=== PATIENT | female | born 1985 | race Asian ===

== ENCOUNTER 2017-06-28 22:08 | Emergency (ER) | payer MEDICAID ==
[~2017-06-28] VITALS: Ht 170.2 cm; Wt 73.6 kg
[~2017-06-28 22:08] MED LIST: BENZ1TAB10 PO; BUSP15 PO; CEPH500 PO; DIPH25CA85 PO; LEVE250T55 PO; LEVO25TA9 PO; LURA80 PO
[2017-06-29 01:17] VITALS: BP 95/55
[2017-06-29] MEDS ORDERED: METHOCARBAMOL 750 MG TABLET PO ONE (02:45)
[2017-06-29] MEDS ORDERED: TraMADol HCL 50 MG TABLET PO ONE (02:45)
[2017-06-29] MEDS ORDERED: METHOCARBAMOL 500 MG TABLET PO ONE (03:00)
[2017-06-29] MEDS ORDERED: TRAM50TA4 PO (09:21)
[2017-06-29] MEDS ORDERED: MET500 PO (09:21)
== END 2017-06-29 03:16 | disposition home or self-care (01) ==
LOC: EMS 22:18
DX: M54.5 Low back pain (principal); G89.29 Other chronic pain; F17.210 Nicotine dependence, cigarettes, uncomplicated; F15.90 Other stimulant use, unspecified, uncomplicated
CPT/HCPCS: 99283; 99406

== ENCOUNTER 2017-06-29 08:59 | Emergency (ER) | payer MEDICAID ==
[~2017-06-29] VITALS: Ht 170.2 cm; Wt 73.5 kg
[~2017-06-29 08:59] MED LIST changes: -CEPH500 PO; -DIPH25CA85 PO
[2017-06-29] MEDS ORDERED: MET500 PO (09:21)
[2017-06-29] MEDS ORDERED: TRAM50TA4 PO (09:21)
[2017-06-29 09:58] LABS: APPEARANCE,URINE CLEAR (CLEAR); GLUCOSE, URINE (UA) NEGATIVE (NEGATIVE); KETONES,URINE NEGATIVE (NEGATIVE); LEUKOCYTE ESTERASE ,URINE NEGATIVE (NEGATIVE); OCCULT BLOOD,URINE MODERATE (NEGATIVE); PROTEIN,URINE NEGATIVE (NEGATIVE)
[2017-06-29] MEDS ORDERED: KETOROLAC TROMETHAMINE 30 MG/ML VIAL IVP ONE (10:00)
[2017-06-29 10:13] LABS: ADD UA MICROSCOPIC YES
[2017-06-29 10:14] LABS: SQUAMOUS EPITHELIAL CELL,UR Few /LPF (None Seen); WBC,URINE None Seen /HPF (0-5)
[2017-06-29 10:28] LABS: ANION GAP 10 mmol/L (8-16); BASOPHILS % (AUTO) 0.6 % (0.0-2.0); CALCIUM, TOTAL 8.1 mg/dL (8.8-10.5); CARBON DIOXIDE 26 mmol/L (22-29); CHLORIDE 104 mmol/L (98-107); CREATININE 0.64 mg/dL (0.60-1.30); EOSINOPHILS % (AUTO) 3.1 % (1.0-6.0); GLOMERULAR FILTR. RATE CALC > 60 mL/min (>60); HEMATOCRIT 37.6 % (36-46); LYMPHOCYTES # (AUTO) 2.2 K/uL (1.0-4.8); LYMPHOCYTES % (AUTO) 38.2 % (22.0-44.0); MEAN CORPUSCULAR HEMOGLOBIN 32.5 pg (26.0-34.0); MEAN CORPUSCULAR HGB CONC 34.5 G/dL (31.0-37.0); MEAN CORPUSCULAR VOLUME 94 fL (80-100); MONOCYTES # (AUTO) 0.6 K/uL (0.1-1.0); MONOCYTES % (AUTO) 10.7 % (2.0-9.0); NEUTROPHILS # (AUTO) 2.8 K/uL (1.8-7.7); NEUTROPHILS % (AUTO) 47.4 % (40.0-70.0); PLATELET COUNT (AUTO) 196 K/uL (150-450); RED CELL DISTRIBUTION WIDTH 12.6 % (11.5-14.5); SODIUM SERUM 140 mmol/L (136-145); UREA NITROGEN, BLOOD 13 mg/dL (7-18); WHITE BLOOD COUNT (AUTO) 5.9 K/uL (4.5-11.0)
[2017-06-29 10:33] LABS: ALANINE AMINOTRANSFERASE 32 U/L (12-78); ALBUMIN 3.8 g/dL (3.4-5.0); ASPARTATE AMINOTRANSFERASE 25 U/L (15-37); BILIRUBIN,TOTAL 0.3 mg/dL (0.1-1.0); TOTAL PROTEIN, SERUM 6.6 g/dL (6.4-8.2)
[2017-06-29 10:52] VITALS: BP 109/67
== END 2017-06-29 11:31 | disposition home or self-care (01) ==
LOC: EMS 09:08
DX: R10.9 Unspecified abdominal pain (principal); F20.9 Schizophrenia, unspecified; R11.2 Nausea with vomiting, unspecified; F17.210 Nicotine dependence, cigarettes, uncomplicated; F15.10 Other stimulant abuse, uncomplicated
CPT/HCPCS: 36415; 74176; 80053; 81001; 83690; 84703; 85025; 96374; 99285; J1885

== ENCOUNTER 2017-07-01 22:20 | Emergency (ER) | payer MEDICAID ==
[~2017-07-01] VITALS: Ht 170.2 cm; Wt 73.6 kg
[~2017-07-01 22:20] MED LIST changes: +MET500 PO; +TRAM50TA4 PO
[2017-07-01] MEDS ORDERED: GABA-531 PO (22:33)
[2017-07-01] MEDS ORDERED: IBUP-1547 PO (22:33)
[2017-07-01] MEDS ORDERED: SERT50TA12 PO (22:33)
[2017-07-01] MEDS ORDERED: PHENY100 PO (22:33)
[2017-07-01] MEDS ORDERED: NAPR-58 PO (22:33)
[2017-07-01] MEDS ORDERED: TRAZ-144 PO (22:33)
[2017-07-01 23:00] VITALS: BP 121/71
[2017-07-01] MEDS ORDERED: KETOROLAC TROMETHAMINE 60 MG/2 ML VIAL IM ONE (23:30)
== END 2017-07-02 01:51 | disposition home or self-care (01) ==
LOC: EMS 22:22
DX: M25.551 Pain in right hip (principal); F15.90 Other stimulant use, unspecified, uncomplicated; F17.210 Nicotine dependence, cigarettes, uncomplicated; Z88.8 Allergy status to other drugs, medicaments and biological substances
CPT/HCPCS: 73502; 96372; 99284; J1885

== ENCOUNTER 2018-04-08 16:43 | Emergency (ER) | payer MEDICAID, OTHER ==
[~2018-04-08] VITALS: Ht 170.2 cm; Wt 75.0 kg
[~2018-04-08 16:43] MED LIST changes: -BENZ1TAB10 PO; -BUSP15 PO; +GABA-531 PO; +IBUP-2071 PO; -LEVE250T55 PO; -LEVO25TA9 PO; -LURA80 PO; -MET500 PO; +NAPR-58 PO; +PHENY100 PO; +SERT50TA12 PO; -TRAM50TA4 PO; +TRAZ-144 PO
[2018-04-08] MEDS ORDERED: DIVA500T35 PO (17:36)
[2018-04-08] MEDS ORDERED: DIVA125T PO (17:36)
[2018-04-08] MEDS ORDERED: LEVE500T53 PO (17:36)
[2018-04-08 19:02] VITALS: BP 120/70
== END 2018-04-08 19:49 | disposition home or self-care (01) ==
LOC: EMS 16:44
DX: S62.610A Displaced fracture of proximal phalanx of right index finger, initial encounter for closed fracture (principal); F20.9 Schizophrenia, unspecified; F43.10 Post-traumatic stress disorder, unspecified; N83.209 Unspecified ovarian cyst, unspecified side; F17.210 Nicotine dependence, cigarettes, uncomplicated; F15.10 Other stimulant abuse, uncomplicated; F11.10 Opioid abuse, uncomplicated; Z79.899 Other long term (current) drug therapy; W23.0XXA Caught, crushed, jammed, or pinched between moving objects, initial encounter; Y93.89 Activity, other specified; Y92.89 Other specified places as the place of occurrence of the external cause; Y99.8 Other external cause status
CPT/HCPCS: 99284

== ENCOUNTER 2018-05-31 05:33 | Inpatient (IN) | payer MEDICAID, OTHER ==
[~2018-05-31] VITALS: Ht 170.2 cm; Wt 68.5 kg
[~2018-05-31 05:33] MED LIST changes: +DIVA-78 PO; +DIVA125T32 PO; -IBUP-2071 PO; +LEVE500T53 PO; -PHENY100 PO; -SERT50TA12 PO; -TRAZ-144 PO; +TRAZ-219 PO
[2018-05-31 10:17] LABS: BASOPHILS % (AUTO) 0.3 % (0.0-2.0); EOSINOPHILS % (AUTO) 0.4 % (1.0-6.0); HEMATOCRIT 39.7 % (36-46); LYMPHOCYTES # (AUTO) 1.8 K/uL (1.0-4.8); LYMPHOCYTES % (AUTO) 20.5 % (22.0-44.0); MEAN CORPUSCULAR HEMOGLOBIN 32.3 pg (26.0-34.0); MEAN CORPUSCULAR HGB CONC 35.3 G/dL (31.0-37.0); MEAN CORPUSCULAR VOLUME 92 fL (80-100); MONOCYTES # (AUTO) 0.8 K/uL (0.1-1.0); NEUTROPHILS # (AUTO) 6.2 K/uL (1.8-7.7); NEUTROPHILS % (AUTO) 69.8 % (40.0-70.0); PLATELET COUNT (AUTO) 213 K/uL (150-450); RED BLOOD CELL COUNT(AUTO) 4.33 MIL/uL (4.00-5.20); RED CELL DISTRIBUTION WIDTH 12.8 % (11.5-14.5)
[2018-05-31 10:32] LABS: ANION GAP 12 mmol/L (8-16); CALCIUM, TOTAL 9.3 mg/dL (8.8-10.5); CARBON DIOXIDE 24 mmol/L (22-29); CHLORIDE 104 mmol/L (98-107); CREATININE 0.75 mg/dL (0.60-1.30); GLOMERULAR FILTR. RATE CALC > 60 mL/min (>60); GLUCOSE,RANDOM 102 mg/dL (70-110); POTASSIUM 4.4 mmol/L (3.5-5.1); SODIUM SERUM 140 mmol/L (136-145); UREA NITROGEN, BLOOD 16 mg/dL (7-18)
[2018-05-31 10:33] LABS: ALANINE AMINOTRANSFERASE 37 U/L (12-78); ALBUMIN 4.5 g/dL (3.4-5.0); ALKALINE PHOSPHATASE 59 U/L (46-116); ASPARTATE AMINOTRANSFERASE 30 U/L (15-37); BILIRUBIN,TOTAL 0.6 mg/dL (0.1-1.0); VALPROIC ACID 11 mcg/mL (50-100)
[2018-05-31 10:44] LABS: AMPHET/METH SCREEN,URINE NEGATIVE (NEGATIVE); BARBITURATE SCREEN, URINE NEGATIVE (NEGATIVE); BENZODIAZEPINES SCREEN,URINE NEGATIVE (NEGATIVE); CANNABINOID SCREEN,URINE NEGATIVE (NEGATIVE); COCAINE SCREEN,URINE NEGATIVE (NEGATIVE); METHADONE SCREEN, URINE NEGATIVE (NEGATIVE); OPIATE SCREEN,URINE NEGATIVE (NEGATIVE); PHENCYCLIDINE SCREEN,URINE NEGATIVE (NEGATIVE)
[2018-05-31] MEDS ORDERED: IBUPROFEN 400 MG TABLET PO PRN (12:45)
[2018-05-31] MEDS ORDERED: LORazepam 2 MG TABLET PO PRN (12:45)
[2018-05-31] MEDS ORDERED: HALOPERIDOL 5 MG TABLET PO PRN (12:45)
[2018-05-31] MEDS ORDERED: ACETAMINOPHEN 325 MG TABLET PO PRN (12:45)
[2018-05-31 13:14] LABS: APPEARANCE,URINE CLOUDY (CLEAR); GLUCOSE, URINE (UA) NEGATIVE (NEGATIVE); KETONES,URINE 15 mg/dL (NEGATIVE); LEUKOCYTE ESTERASE ,URINE TRACE (NEGATIVE); NITRATE,URINE NEGATIVE (NEGATIVE); OCCULT BLOOD,URINE LARGE (NEGATIVE); PROTEIN,URINE NEGATIVE (NEGATIVE)
[2018-05-31 13:15] LABS: BILIRUBIN,URINE PRELIM. POSITIVE (NEGATIVE)
[2018-05-31 13:35] LABS: BACTERIA,URINE Few /HPF (None Seen); SQUAMOUS EPITHELIAL CELL,UR Moderate /LPF (None Seen)
[2018-05-31] MEDS ORDERED: LOPERAMIDE HCL 2 MG CAPSULE PO PRN (21:00)
[2018-05-31] MEDS ORDERED: PETROLATUM,WHITE 71 GM JELLY TP PRN (21:00)
[2018-05-31] MEDS ORDERED: ALBUTEROL SULFATE HFA 90 MCG/PUFF 8 GM INHALER IH PRN (21:00)
[2018-05-31] MEDS ORDERED: MAGNESIUM HYDROXIDE SUSPENSION 30 ML UDCUP PO PRN (21:00)
[2018-05-31] MEDS ORDERED: MAG HYDROX/AL HYDROX/SIMETH ES 30 ML SUSPENSION UDCUP PO PRN (21:00)
[2018-05-31] MEDS ORDERED: DOCUSATE SODIUM 100 MG CAPSULE PO PRN (21:00)
[2018-05-31] MEDS ORDERED: ONDANSETRON HCL 4 MG TABLET PO PRN (21:00)
[2018-05-31 21:01] VITALS: BP 101/67
[2018-05-31] MEDS: LevETIRAcetam 250 MG TABLET PO SCH (21:24)
[2018-06-01 06:52] LABS: BASOPHILS % (AUTO) 0.7 % (0.0-2.0); EOSINOPHILS % (AUTO) 2.3 % (1.0-6.0); HEMATOCRIT 36.7 % (36-46); HEMOGLOBIN 13.1 g/dL (12.0-16.0); LYMPHOCYTES % (AUTO) 33.6 % (22.0-44.0); MEAN CORPUSCULAR HEMOGLOBIN 32.5 pg (26.0-34.0); MEAN CORPUSCULAR HGB CONC 35.8 G/dL (31.0-37.0); MEAN CORPUSCULAR VOLUME 91 fL (80-100); MONOCYTES # (AUTO) 0.7 K/uL (0.1-1.0); MONOCYTES % (AUTO) 11.8 % (2.0-9.0); NEUTROPHILS # (AUTO) 3.1 K/uL (1.8-7.7); NEUTROPHILS % (AUTO) 51.6 % (40.0-70.0); PLATELET COUNT (AUTO) 183 K/uL (150-450); RED BLOOD CELL COUNT(AUTO) 4.05 MIL/uL (4.00-5.20); RED CELL DISTRIBUTION WIDTH 12.7 % (11.5-14.5)
[2018-06-01 07:22] LABS: HEMOGLOBIN A1C 4.8 % (4.5-6.2)
[2018-06-01 07:25] LABS: ALANINE AMINOTRANSFERASE 40 U/L (12-78); ALBUMIN 3.7 g/dL (3.4-5.0); ALKALINE PHOSPHATASE 51 U/L (46-116); ANION GAP 7 mmol/L (8-16); ASPARTATE AMINOTRANSFERASE 26 U/L (15-37); BILIRUBIN,TOTAL 0.5 mg/dL (0.1-1.0); CALCIUM, TOTAL 8.9 mg/dL (8.8-10.5); CARBON DIOXIDE 27 mmol/L (22-29); CHLORIDE 107 mmol/L (98-107); CHOL/HDL RATIO 4.1 (3.9-5.7); CHOLESTEROL 157 mg/dL (131-200); CREATININE 0.68 mg/dL (0.60-1.30); GLOMERULAR FILTR. RATE CALC > 60 mL/min (>60); GLUCOSE,RANDOM 96 mg/dL (70-110); HDL CHOLESTEROL 38 mg/dL (40-60); LDL CHOL (CALC.) 106 mg/dL (0-130); SODIUM SERUM 141 mmol/L (136-145); THYROID STIMULATING HORMONE 1.12 uIU/mL (0.36-3.74); TOTAL PROTEIN, SERUM 6.6 g/dL (6.4-8.2); TRIGLYCERIDES 63 mg/dL (15-150); UREA NITROGEN, BLOOD 13 mg/dL (7-18)
[2018-06-01] MEDS: LevETIRAcetam 250 MG TABLET PO SCH ×2 (09:58→18:12)
[2018-06-01] MEDS: NAPROXEN 500 MG TABLET PO SCH ×2 (09:59→18:12)
[2018-06-01 11:12] VITALS: BP 110/77
[2018-06-01 18:50] VITALS: BP 113/71
[2018-06-01] MEDS: BENZTROPINE MESYLATE 1 MG TABLET PO SCH (21:41)
[2018-06-02 08:00] VITALS: BP 103/69
[2018-06-02] MEDS: RisperiDONE 2 MG TABLET PO SCH ×2 (09:54→17:08)
[2018-06-02] MEDS: CIPROFLOXACIN HCL 250 MG TABLET PO SCH (09:54)
[2018-06-02] MEDS: NAPROXEN 500 MG TABLET PO SCH ×2 (09:54→17:08)
[2018-06-02] MEDS: LevETIRAcetam 250 MG TABLET PO SCH ×2 (09:55→17:08)
[2018-06-02] MEDS: BENZTROPINE MESYLATE 1 MG TABLET PO SCH (20:57)
[2018-06-02 21:24] VITALS: BP 112/70
[2018-06-03 08:00] VITALS: BP 113/68
[2018-06-03] MEDS: RisperiDONE 2 MG TABLET PO SCH ×2 (10:43→16:19)
[2018-06-03] MEDS: NAPROXEN 500 MG TABLET PO SCH ×2 (10:43→16:19)
[2018-06-03] MEDS: LevETIRAcetam 250 MG TABLET PO SCH ×2 (10:44→16:18)
[2018-06-03] MEDS: CIPROFLOXACIN HCL 250 MG TABLET PO SCH (10:44)
[2018-06-03] MEDS: BENZTROPINE MESYLATE 1 MG TABLET PO SCH (20:30)
[2018-06-03 21:01] VITALS: BP 115/65
[2018-06-03] MEDS: ZOLPIDEM TARTRATE 10 MG TABLET PO PRN (21:35)
[2018-06-04 08:00] VITALS: BP 108/64
[2018-06-04] MEDS: CIPROFLOXACIN HCL 250 MG TABLET PO SCH (10:01)
[2018-06-04] MEDS: LevETIRAcetam 250 MG TABLET PO SCH ×2 (10:01→16:57)
[2018-06-04] MEDS: NAPROXEN 500 MG TABLET PO SCH ×2 (10:01→16:57)
[2018-06-04] MEDS: RisperiDONE 2 MG TABLET PO SCH (10:01)
[2018-06-04] MEDS: BENZTROPINE MESYLATE 1 MG TABLET PO SCH (20:03)
[2018-06-04] MEDS: OLANZapine 7.5 MG TABLET PO SCH (20:03)
[2018-06-04 21:42] VITALS: BP 106/69
[2018-06-04] MEDS: ZOLPIDEM TARTRATE 10 MG TABLET PO PRN (22:48)
[2018-06-05] MEDS: LevETIRAcetam 250 MG TABLET PO SCH ×2 (09:29→16:59)
[2018-06-05] MEDS: NAPROXEN 500 MG TABLET PO SCH ×2 (09:29→16:59)
[2018-06-05] MEDS: CIPROFLOXACIN HCL 250 MG TABLET PO SCH (09:29)
[2018-06-05 10:22] VITALS: BP 93/56
[2018-06-05 17:00] VITALS: BP 102/48
[2018-06-05] MEDS: BENZTROPINE MESYLATE 1 MG TABLET PO SCH (21:00)
[2018-06-05] MEDS: OLANZapine 7.5 MG TABLET PO SCH (21:00)
[2018-06-06 09:07] VITALS: BP 113/71
[2018-06-06] MEDS: CIPROFLOXACIN HCL 250 MG TABLET PO SCH (10:31)
[2018-06-06] MEDS: LevETIRAcetam 250 MG TABLET PO SCH ×2 (10:32→17:06)
[2018-06-06] MEDS: NAPROXEN 500 MG TABLET PO SCH ×2 (10:32→17:06)
[2018-06-06 17:20] VITALS: BP 99/64
[2018-06-06] MEDS: ZOLPIDEM TARTRATE 10 MG TABLET PO PRN (20:22)
[2018-06-06] MEDS: BENZTROPINE MESYLATE 1 MG TABLET PO SCH (20:22)
[2018-06-06] MEDS: OLANZapine 7.5 MG TABLET PO SCH (20:23)
[2018-06-07 08:26] VITALS: BP 106/69
[2018-06-07] MEDS: CIPROFLOXACIN HCL 250 MG TABLET PO SCH (08:59)
[2018-06-07] MEDS: LevETIRAcetam 250 MG TABLET PO SCH (08:59)
[2018-06-07] MEDS: NAPROXEN 500 MG TABLET PO SCH (08:59)
[2018-06-07] MEDS ORDERED: BENZ1TAB10 PO (11:38)
[2018-06-07] MEDS ORDERED: OLAN7.5T2 PO (11:39)
[2018-06-07] MEDS ORDERED: CIP250 PO (11:43)
[2018-06-08] MEDS ORDERED: NAPR-58 PO (20:42)
== END 2018-06-07 14:50 | disposition home or self-care (01) | DRG 750 ==
LOC: EMS 05:34 → 3EI 18:58
PROVIDERS: ADMIT Psychiatry & Neurology Psychiatry; ATTEND Psychiatry & Neurology Psychiatry
DX: F20.0 Paranoid schizophrenia (principal); M41.9 Scoliosis, unspecified; N39.0 Urinary tract infection, site not specified; G40.909 Epilepsy, unspecified, not intractable, without status epilepticus; F43.10 Post-traumatic stress disorder, unspecified; E03.9 Hypothyroidism, unspecified; F11.90 Opioid use, unspecified, uncomplicated; F17.210 Nicotine dependence, cigarettes, uncomplicated; F41.9 Anxiety disorder, unspecified; G47.00 Insomnia, unspecified; N83.209 Unspecified ovarian cyst, unspecified side; Z88.8 Allergy status to other drugs, medicaments and biological substances; Z79.899 Other long term (current) drug therapy; Z71.6 Tobacco abuse counseling
CPT/HCPCS: 83036; 84443; 99285; G0480

== ENCOUNTER 2018-06-08 20:33 | Inpatient (IN) | payer MEDICAID, OTHER ==
[~2018-06-08] VITALS: Ht 170.2 cm; Wt 67.8 kg
[~2018-06-08 20:33] MED LIST changes: +BENZ1TAB10 PO; +CIP250 PO; -DIVA-78 PO; -DIVA125T32 PO; -GABA-531 PO; +OLAN7.5T2 PO; -TRAZ-219 PO
[2018-06-08] MEDS ORDERED: NAPR-58 PO (20:42)
[2018-06-08 21:48] LABS: BASOPHILS % (AUTO) 0.5 % (0.0-2.0); EOSINOPHILS % (AUTO) 1.4 % (1.0-6.0); HEMATOCRIT 38.8 % (36-46); HEMOGLOBIN 13.5 g/dL (12.0-16.0); LYMPHOCYTES # (AUTO) 2.7 K/uL (1.0-4.8); MEAN CORPUSCULAR HGB CONC 34.8 G/dL (31.0-37.0); MEAN CORPUSCULAR VOLUME 92 fL (80-100); MONOCYTES # (AUTO) 0.8 K/uL (0.1-1.0); MONOCYTES % (AUTO) 9.6 % (2.0-9.0); NEUTROPHILS # (AUTO) 4.7 K/uL (1.8-7.7); NEUTROPHILS % (AUTO) 56.5 % (40.0-70.0); PLATELET COUNT (AUTO) 235 K/uL (150-450); RED BLOOD CELL COUNT(AUTO) 4.22 MIL/uL (4.00-5.20)
[2018-06-08 21:58] LABS: ANION GAP 11 mmol/L (8-16); CALCIUM, TOTAL 9.1 mg/dL (8.8-10.5); CARBON DIOXIDE 25 mmol/L (22-29); CHLORIDE 104 mmol/L (98-107); CREATININE 0.87 mg/dL (0.60-1.30); GLOMERULAR FILTR. RATE CALC > 60 mL/min (>60); GLUCOSE,RANDOM 112 mg/dL (70-110); POTASSIUM 3.6 mmol/L (3.5-5.1); SODIUM SERUM 140 mmol/L (136-145); UREA NITROGEN, BLOOD 11 mg/dL (7-18)
[2018-06-08 22:04] LABS: ALANINE AMINOTRANSFERASE 24 U/L (12-78); ALKALINE PHOSPHATASE 59 U/L (46-116); ASPARTATE AMINOTRANSFERASE 16 U/L (15-37); BILIRUBIN,TOTAL 0.4 mg/dL (0.1-1.0); TOTAL PROTEIN, SERUM 7.3 g/dL (6.4-8.2)
[2018-06-09] MEDS ORDERED: HALOPERIDOL 5 MG TABLET PO ONE
[2018-06-09] MEDS ORDERED: DiphenhydrAMINE HCL 25 MG CAPSULE PO ONE
[2018-06-09] MEDS ORDERED: LORazepam 2 MG TABLET PO ONE
[2018-06-09] MEDS ORDERED: HALOPERIDOL 5 MG TABLET PO PRN (00:30)
[2018-06-09 00:34] LABS: AMPHET/METH SCREEN,URINE POSITIVE (NEGATIVE); BARBITURATE SCREEN, URINE NEGATIVE (NEGATIVE); BENZODIAZEPINES SCREEN,URINE NEGATIVE (NEGATIVE); CANNABINOID SCREEN,URINE NEGATIVE (NEGATIVE); COCAINE SCREEN,URINE NEGATIVE (NEGATIVE); METHADONE SCREEN, URINE NEGATIVE (NEGATIVE); OPIATE SCREEN,URINE NEGATIVE (NEGATIVE); PHENCYCLIDINE SCREEN,URINE NEGATIVE (NEGATIVE)
[2018-06-09 03:32] VITALS: BP 120/66
[2018-06-09] MEDS ORDERED: IBUPROFEN 400 MG TABLET PO PRN (06:45)
[2018-06-09] MEDS ORDERED: ONDANSETRON HCL 4 MG TABLET PO PRN (06:45)
[2018-06-09] MEDS ORDERED: LOPERAMIDE HCL 2 MG CAPSULE PO PRN (06:45)
[2018-06-09] MEDS ORDERED: DOCUSATE SODIUM 100 MG CAPSULE PO PRN (06:45)
[2018-06-09] MEDS ORDERED: MAG HYDROX/AL HYDROX/SIMETH ES 30 ML SUSPENSION UDCUP PO PRN (06:45)
[2018-06-09] MEDS ORDERED: PETROLATUM,WHITE 71 GM JELLY TP PRN (06:45)
[2018-06-09] MEDS ORDERED: CloNIDine HCL 0.1 MG TABLET PO PRN (06:45)
[2018-06-09] MEDS ORDERED: ACETAMINOPHEN 325 MG TABLET PO PRN (06:45)
[2018-06-09] MEDS ORDERED: MAGNESIUM HYDROXIDE SUSPENSION 30 ML UDCUP PO PRN (06:45)
[2018-06-09] MEDS: LevETIRAcetam 250 MG TABLET PO SCH ×2 (08:50→16:53)
[2018-06-09] MEDS: NICOTINE 14 MG/24 HOUR PATCH TD SCH (08:50)
[2018-06-09 10:09] VITALS: BP 122/75
[2018-06-09 17:26] VITALS: BP 94/50
[2018-06-09] MEDS: ZOLPIDEM TARTRATE 10 MG TABLET PO PRN (22:09)
[2018-06-10 06:32] LABS: BASOPHILS % (AUTO) 0.5 % (0.0-2.0); EOSINOPHILS % (AUTO) 3.6 % (1.0-6.0); HEMATOCRIT 36.2 % (36-46); HEMOGLOBIN 12.6 g/dL (12.0-16.0); LYMPHOCYTES # (AUTO) 2.7 K/uL (1.0-4.8); LYMPHOCYTES % (AUTO) 34.7 % (22.0-44.0); MEAN CORPUSCULAR HEMOGLOBIN 31.8 pg (26.0-34.0); MEAN CORPUSCULAR HGB CONC 34.8 G/dL (31.0-37.0); MEAN CORPUSCULAR VOLUME 92 fL (80-100); MONOCYTES # (AUTO) 0.7 K/uL (0.1-1.0); MONOCYTES % (AUTO) 8.6 % (2.0-9.0); NEUTROPHILS # (AUTO) 4.1 K/uL (1.8-7.7); NEUTROPHILS % (AUTO) 52.6 % (40.0-70.0); PLATELET COUNT (AUTO) 212 K/uL (150-450); RED BLOOD CELL COUNT(AUTO) 3.95 MIL/uL (4.00-5.20); RED CELL DISTRIBUTION WIDTH 12.6 % (11.5-14.5)
[2018-06-10 07:02] LABS: CHOL/HDL RATIO 3.8 (3.9-5.7); THYROID STIMULATING HORMONE 1.06 uIU/mL (0.36-3.74)
[2018-06-10] MEDS: NICOTINE 14 MG/24 HOUR PATCH TD SCH (09:00)
[2018-06-10] MEDS: LevETIRAcetam 250 MG TABLET PO SCH ×2 (10:34→17:12)
[2018-06-10] MEDS: RisperiDONE 3 MG TABLET PO SCH (17:00)
[2018-06-10 17:04] VITALS: BP 94/42
[2018-06-10] MEDS: ZOLPIDEM TARTRATE 10 MG TABLET PO PRN (20:02)
[2018-06-10] MEDS: BENZTROPINE MESYLATE 1 MG TABLET PO SCH (20:02)
[2018-06-11 08:49] VITALS: BP 102/78
[2018-06-11] MEDS: NICOTINE 14 MG/24 HOUR PATCH TD SCH (09:00)
[2018-06-11] MEDS: RisperiDONE 3 MG TABLET PO SCH (09:00)
[2018-06-11] MEDS: LevETIRAcetam 250 MG TABLET PO SCH ×2 (10:30→16:56)
[2018-06-11 17:15] VITALS: BP 103/55
[2018-06-11] MEDS: BENZTROPINE MESYLATE 1 MG TABLET PO SCH (20:06)
[2018-06-11] MEDS: QUEtiapine FUMARATE 200 MG TABLET PO SCH (20:07)
[2018-06-12 00:02] VITALS: BP 95/55
[2018-06-12] MEDS: ZOLPIDEM TARTRATE 10 MG TABLET PO PRN (00:06)
[2018-06-12] MEDS: LORazepam 2 MG TABLET PO PRN (00:06)
[2018-06-12] MEDS: NICOTINE 14 MG/24 HOUR PATCH TD SCH (09:00)
[2018-06-12 09:24] VITALS: BP 104/67
[2018-06-12] MEDS: LevETIRAcetam 250 MG TABLET PO SCH ×2 (09:38→17:19)
[2018-06-12] MEDS: QUEtiapine FUMARATE 100 MG TABLET PO SCH (09:38)
[2018-06-12] MEDS: BENZTROPINE MESYLATE 1 MG TABLET PO SCH (20:16)
[2018-06-12] MEDS: QUEtiapine FUMARATE 200 MG TABLET PO SCH (20:16)
[2018-06-12 21:19] VITALS: BP 101/53
[2018-06-13 00:02] VITALS: BP 86/51
[2018-06-13] MEDS: ZOLPIDEM TARTRATE 10 MG TABLET PO PRN (01:33)
[2018-06-13] MEDS: LORazepam 2 MG TABLET PO PRN ×2 (01:33→20:23)
[2018-06-13] MEDS: NICOTINE 14 MG/24 HOUR PATCH TD SCH (09:00)
[2018-06-13] MEDS: QUEtiapine FUMARATE 100 MG TABLET PO SCH (10:17)
[2018-06-13] MEDS: LevETIRAcetam 250 MG TABLET PO SCH ×2 (10:17→17:40)
[2018-06-13 10:54] VITALS: BP 101/64
[2018-06-13 16:52] VITALS: BP 122/78
[2018-06-13] MEDS: BENZTROPINE MESYLATE 1 MG TABLET PO SCH (20:23)
[2018-06-13] MEDS: QUEtiapine FUMARATE 200 MG TABLET PO SCH (20:23)
[2018-06-14] MEDS: NICOTINE 14 MG/24 HOUR PATCH TD SCH (09:00)
[2018-06-14] MEDS: LevETIRAcetam 250 MG TABLET PO SCH ×2 (09:35→16:44)
[2018-06-14] MEDS: QUEtiapine FUMARATE 100 MG TABLET PO SCH (09:35)
[2018-06-14 10:38] VITALS: BP 90/60
[2018-06-14 16:56] VITALS: BP 120/60
[2018-06-14] MEDS: BENZTROPINE MESYLATE 1 MG TABLET PO SCH (20:05)
[2018-06-14] MEDS: QUEtiapine FUMARATE 200 MG TABLET PO SCH (20:05)
[2018-06-14] MEDS: LORazepam 2 MG TABLET PO PRN (20:51)
[2018-06-14] MEDS: ZOLPIDEM TARTRATE 10 MG TABLET PO PRN (22:32)
[2018-06-15 08:36] VITALS: BP 97/53
[2018-06-15] MEDS: NICOTINE 14 MG/24 HOUR PATCH TD SCH (09:00)
[2018-06-15] MEDS: QUEtiapine FUMARATE 100 MG TABLET PO SCH (09:25)
[2018-06-15] MEDS: LevETIRAcetam 250 MG TABLET PO SCH ×2 (09:25→16:55)
[2018-06-15] MEDS ORDERED: QUET200T PO (16:52)
[2018-06-15] MEDS ORDERED: QUET100T PO (16:52)
== END 2018-06-15 18:00 | disposition home or self-care (01) | DRG 750 ==
LOC: EMS 20:34 → 3EI 06-09 00:30
PROVIDERS: ADMIT Psychiatry & Neurology Psychiatry; ATTEND Psychiatry & Neurology Psychiatry
DX: F25.9 Schizoaffective disorder, unspecified (principal); M41.9 Scoliosis, unspecified; G40.909 Epilepsy, unspecified, not intractable, without status epilepticus; E03.9 Hypothyroidism, unspecified; F17.210 Nicotine dependence, cigarettes, uncomplicated; F43.10 Post-traumatic stress disorder, unspecified; Z59.0 Homelessness
CPT/HCPCS: 84443; 87081; 99285; G0480

== ENCOUNTER 2018-06-16 13:44 | Inpatient (IN) | payer MEDICAID, OTHER ==
[~2018-06-16] VITALS: Ht 170.2 cm; Wt 68.7 kg
[~2018-06-16 13:44] MED LIST changes: -CIP250 PO; -NAPR-58 PO; -OLAN7.5T2 PO; +QUET100T PO; +QUET200T PO
[2018-06-16 14:38] LABS: AMPHET/METH SCREEN,URINE NEGATIVE (NEGATIVE); BARBITURATE SCREEN, URINE NEGATIVE (NEGATIVE); BENZODIAZEPINES SCREEN,URINE NEGATIVE (NEGATIVE); CANNABINOID SCREEN,URINE NEGATIVE (NEGATIVE); COCAINE SCREEN,URINE NEGATIVE (NEGATIVE); METHADONE SCREEN, URINE NEGATIVE (NEGATIVE); OPIATE SCREEN,URINE NEGATIVE (NEGATIVE); PHENCYCLIDINE SCREEN,URINE NEGATIVE (NEGATIVE)
[2018-06-16 15:01] LABS: BASOPHILS % (AUTO) 0.4 % (0.0-2.0); EOSINOPHILS % (AUTO) 2.4 % (1.0-6.0); HEMATOCRIT 38.2 % (36-46); HEMOGLOBIN 13.7 g/dL (12.0-16.0); LYMPHOCYTES # (AUTO) 1.8 K/uL (1.0-4.8); LYMPHOCYTES % (AUTO) 21.9 % (22.0-44.0); MEAN CORPUSCULAR HEMOGLOBIN 32.2 pg (26.0-34.0); MEAN CORPUSCULAR HGB CONC 35.8 G/dL (31.0-37.0); MEAN CORPUSCULAR VOLUME 90 fL (80-100); MONOCYTES # (AUTO) 0.7 K/uL (0.1-1.0); MONOCYTES % (AUTO) 8.4 % (2.0-9.0); NEUTROPHILS # (AUTO) 5.5 K/uL (1.8-7.7); NEUTROPHILS % (AUTO) 66.9 % (40.0-70.0); PLATELET COUNT (AUTO) 241 K/uL (150-450); RED BLOOD CELL COUNT(AUTO) 4.24 MIL/uL (4.00-5.20); RED CELL DISTRIBUTION WIDTH 12.5 % (11.5-14.5)
[2018-06-16 15:08] LABS: ANION GAP 9 mmol/L (8-16); CARBON DIOXIDE 29 mmol/L (22-29); CHLORIDE 102 mmol/L (98-107); GLOMERULAR FILTR. RATE CALC > 60 mL/min (>60); GLUCOSE,RANDOM 89 mg/dL (70-110); POTASSIUM 4.1 mmol/L (3.5-5.1); SODIUM SERUM 140 mmol/L (136-145); UREA NITROGEN, BLOOD 13 mg/dL (7-18)
[2018-06-16 15:14] LABS: ALANINE AMINOTRANSFERASE 31 U/L (12-78); ALBUMIN 3.9 g/dL (3.4-5.0); ALKALINE PHOSPHATASE 69 U/L (46-116); ASPARTATE AMINOTRANSFERASE 16 U/L (15-37); BILIRUBIN,TOTAL 0.3 mg/dL (0.1-1.0); TOTAL PROTEIN, SERUM 7.3 g/dL (6.4-8.2)
[2018-06-16] MEDS ORDERED: LORazepam 2 MG TABLET PO ONE (17:15)
[2018-06-16] MEDS ORDERED: HALOPERIDOL 5 MG TABLET PO ONE (17:15)
[2018-06-16] MEDS ORDERED: HALOPERIDOL 5 MG TABLET PO PRN (17:30)
[2018-06-16] MEDS ORDERED: BACITRACIN 28.4 GM OINTMENT TP PRN (19:45)
[2018-06-16] MEDS ORDERED: ALBUTEROL SULFATE HFA 90 MCG/PUFF 8 GM INHALER IH PRN (19:45)
[2018-06-16] MEDS ORDERED: PETROLATUM,WHITE 71 GM JELLY TP PRN (19:45)
[2018-06-16] MEDS ORDERED: MAG HYDROX/AL HYDROX/SIMETH ES 30 ML SUSPENSION UDCUP PO PRN (19:45)
[2018-06-16] MEDS ORDERED: LOPERAMIDE HCL 2 MG CAPSULE PO PRN (19:45)
[2018-06-16] MEDS ORDERED: ONDANSETRON HCL 4 MG TABLET PO PRN (19:45)
[2018-06-16] MEDS ORDERED: ACETAMINOPHEN 325 MG TABLET PO PRN (19:45)
[2018-06-16] MEDS ORDERED: MAGNESIUM HYDROXIDE SUSPENSION 30 ML UDCUP PO PRN (19:45)
[2018-06-16] MEDS ORDERED: BENZOCAINE/MENTHOL LOZENGE MM PRN (19:45)
[2018-06-16] MEDS ORDERED: CloNIDine HCL 0.1 MG TABLET PO PRN (19:45)
[2018-06-16] MEDS ORDERED: LevETIRAcetam 500 MG TABLET PO SCH (19:45)
[2018-06-16] MEDS: BENZTROPINE MESYLATE 1 MG TABLET PO SCH (20:38)
[2018-06-16] MEDS: QUEtiapine FUMARATE 200 MG TABLET PO SCH (20:38)
[2018-06-16 20:42] VITALS: BP 105/61
[2018-06-16] MEDS ORDERED: LevETIRAcetam 250 MG TABLET PO SCH (21:00)
[2018-06-17] MEDS: QUEtiapine FUMARATE 100 MG TABLET PO SCH (08:57)
[2018-06-17] MEDS: DOCUSATE SODIUM 100 MG CAPSULE PO SCH (08:57)
[2018-06-17] MEDS: OMEPRAZOLE 20 MG CAPSULE PO SCH (08:57)
[2018-06-17 10:01] VITALS: BP 115/71
[2018-06-17] MEDS: LevETIRAcetam 500 MG TABLET PO SCH (16:25)
[2018-06-17 19:26] VITALS: BP 85/43
[2018-06-17] MEDS: BENZTROPINE MESYLATE 1 MG TABLET PO SCH (20:01)
[2018-06-17] MEDS: QUEtiapine FUMARATE 200 MG TABLET PO SCH (20:02)
[2018-06-17] MEDS: LORazepam 2 MG TABLET PO PRN (20:02)
[2018-06-17 21:38] VITALS: BP 119/64
[2018-06-17] MEDS: IBUPROFEN 600 MG TABLET PO PRN (21:38)
[2018-06-18] MEDS: DOCUSATE SODIUM 100 MG CAPSULE PO SCH (09:40)
[2018-06-18] MEDS: LevETIRAcetam 500 MG TABLET PO SCH ×2 (09:41→16:40)
[2018-06-18] MEDS: OMEPRAZOLE 20 MG CAPSULE PO SCH (09:42)
[2018-06-18] MEDS: QUEtiapine FUMARATE 100 MG TABLET PO SCH (09:42)
[2018-06-18 09:47] VITALS: BP 105/71
[2018-06-18 17:20] VITALS: BP 105/57
[2018-06-18] MEDS: QUEtiapine FUMARATE 200 MG TABLET PO SCH (20:54)
[2018-06-18] MEDS: BENZTROPINE MESYLATE 1 MG TABLET PO SCH (20:54)
[2018-06-19] MEDS: DOCUSATE SODIUM 100 MG CAPSULE PO SCH (09:00)
[2018-06-19] MEDS: LevETIRAcetam 500 MG TABLET PO SCH ×2 (09:42→17:16)
[2018-06-19] MEDS: OMEPRAZOLE 20 MG CAPSULE PO SCH (09:42)
[2018-06-19] MEDS: QUEtiapine FUMARATE 100 MG TABLET PO SCH (09:42)
[2018-06-19 09:55] VITALS: BP 122/59
[2018-06-19 16:42] VITALS: BP 120/70
[2018-06-19] MEDS: BENZTROPINE MESYLATE 1 MG TABLET PO SCH (20:48)
[2018-06-19] MEDS: QUEtiapine FUMARATE 200 MG TABLET PO SCH (20:48)
[2018-06-20] MEDS: ZOLPIDEM TARTRATE 10 MG TABLET PO PRN ×2 (00:02→20:48)
[2018-06-20] MEDS: LORazepam 2 MG TABLET PO PRN (00:02)
[2018-06-20 01:17] VITALS: BP 112/63
[2018-06-20 08:29] VITALS: BP 112/60
[2018-06-20] MEDS: LevETIRAcetam 500 MG TABLET PO SCH ×2 (08:50→17:00)
[2018-06-20] MEDS: QUEtiapine FUMARATE 100 MG TABLET PO SCH (08:50)
[2018-06-20] MEDS: DOCUSATE SODIUM 100 MG CAPSULE PO SCH (08:50)
[2018-06-20] MEDS: OMEPRAZOLE 20 MG CAPSULE PO SCH (08:50)
[2018-06-20 16:30] VITALS: BP 108/62
[2018-06-20 17:50] VITALS: BP 113/62
[2018-06-20 18:46] VITALS: BP 113/62
[2018-06-20] MEDS: BENZTROPINE MESYLATE 1 MG TABLET PO SCH (20:14)
[2018-06-20] MEDS: QUEtiapine FUMARATE 200 MG TABLET PO SCH (20:14)
[2018-06-21] MEDS: LORazepam 2 MG TABLET PO PRN ×2 (00:23→19:57)
[2018-06-21] MEDS: IBUPROFEN 600 MG TABLET PO PRN (00:23)
[2018-06-21 00:25] VITALS: BP 106/56
[2018-06-21] MEDS: DOCUSATE SODIUM 100 MG CAPSULE PO SCH (09:00)
[2018-06-21 09:22] VITALS: BP 113/70
[2018-06-21] MEDS: QUEtiapine FUMARATE 100 MG TABLET PO SCH (09:24)
[2018-06-21] MEDS: OMEPRAZOLE 20 MG CAPSULE PO SCH (09:25)
[2018-06-21] MEDS: LevETIRAcetam 500 MG TABLET PO SCH ×2 (09:25→16:45)
[2018-06-21 16:30] VITALS: BP 120/75
[2018-06-21] MEDS: BENZTROPINE MESYLATE 1 MG TABLET PO SCH (19:56)
[2018-06-21] MEDS: QUEtiapine FUMARATE 200 MG TABLET PO SCH (19:56)
[2018-06-21] MEDS: ZOLPIDEM TARTRATE 10 MG TABLET PO PRN (19:57)
[2018-06-22 08:00] VITALS: BP 96/44
[2018-06-22] MEDS: DOCUSATE SODIUM 100 MG CAPSULE PO SCH (09:00)
[2018-06-22] MEDS: QUEtiapine FUMARATE 100 MG TABLET PO SCH (09:01)
[2018-06-22] MEDS: OMEPRAZOLE 20 MG CAPSULE PO SCH (09:02)
[2018-06-22] MEDS: LevETIRAcetam 500 MG TABLET PO SCH (09:02)
[2018-06-22] MEDS: IBUPROFEN 600 MG TABLET PO PRN (14:00)
[2018-06-22] MEDS ORDERED: OMEP20 PO (16:10)
[2018-06-22] MEDS ORDERED: DSS100 PO (16:10)
== END 2018-06-22 16:45 | disposition home or self-care (01) | DRG 750 ==
LOC: EMS 14:00 → 3EI 18:15
PROVIDERS: ADMIT Psychiatry & Neurology Psychiatry; ATTEND Psychiatry & Neurology Psychiatry
DX: F25.9 Schizoaffective disorder, unspecified (principal); M41.9 Scoliosis, unspecified; E03.9 Hypothyroidism, unspecified; G40.909 Epilepsy, unspecified, not intractable, without status epilepticus; F17.210 Nicotine dependence, cigarettes, uncomplicated; F43.10 Post-traumatic stress disorder, unspecified; G43.909 Migraine, unspecified, not intractable, without status migrainosus; Z71.6 Tobacco abuse counseling; Z79.899 Other long term (current) drug therapy; Z88.8 Allergy status to other drugs, medicaments and biological substances
CPT/HCPCS: 87081; 99285; G0480; G0482

== ENCOUNTER 2019-05-21 09:07 | Inpatient (IN) | payer MEDICAID, OTHER ==
[~2019-05-21] VITALS: Ht 170.2 cm; Wt 70.7 kg
[~2019-05-21 09:07] MED LIST changes: +DSS100 PO; +MACR100 PO; +OMEP20 PO
[2019-05-21] MEDS ORDERED: LORazepam 2 MG/ML VIAL IM ONE (10:00)
[2019-05-21] MEDS ORDERED: HALOPERIDOL LACTATE 5 MG/ML VIAL IM ONE (10:00)
[2019-05-21] MEDS ORDERED: DiphenhydrAMINE HCL 50 MG/ML VIAL IM ONE (10:00)
[2019-05-21] MEDS ORDERED: ZOLPIDEM TARTRATE 10 MG TABLET PO PRN (11:00)
[2019-05-21 11:14] LABS: BASOPHILS % (AUTO) 0.7 % (0.0-2.0); EOSINOPHILS % (AUTO) 1.2 % (1.0-6.0); HEMATOCRIT 37.2 % (36-46); HEMOGLOBIN 12.4 g/dL (12.0-16.0); LYMPHOCYTES # (AUTO) 1.9 K/uL (1.0-4.8); LYMPHOCYTES % (AUTO) 24.9 % (22.0-44.0); MEAN CORPUSCULAR HEMOGLOBIN 29.9 pg (26.0-34.0); MEAN CORPUSCULAR HGB CONC 33.4 G/dL (31.0-37.0); MEAN CORPUSCULAR VOLUME 90 fL (80-100); MONOCYTES # (AUTO) 0.7 K/uL (0.1-1.0); MONOCYTES % (AUTO) 9.3 % (2.0-9.0); NEUTROPHILS # (AUTO) 4.8 K/uL (1.8-7.7); NEUTROPHILS % (AUTO) 63.9 % (40.0-70.0); PLATELET COUNT (AUTO) 268 K/uL (150-450); RED BLOOD CELL COUNT(AUTO) 4.15 MIL/uL (4.00-5.20); RED CELL DISTRIBUTION WIDTH 13.7 % (11.5-14.5)
[2019-05-21 11:29] LABS: ANION GAP 11 mmol/L (8-16); CALCIUM, TOTAL 9.1 mg/dL (8.8-10.5); CARBON DIOXIDE 25 mmol/L (22-29); CHLORIDE 103 mmol/L (98-107); CREATININE 0.87 mg/dL (0.60-1.30); GLOMERULAR FILTR. RATE CALC > 60 mL/min (>60); GLUCOSE,RANDOM 99 mg/dL (70-110); POTASSIUM 3.1 mmol/L (3.5-5.1); SODIUM SERUM 139 mmol/L (136-145); UREA NITROGEN, BLOOD 12 mg/dL (7-18)
[2019-05-21 11:32] LABS: ALANINE AMINOTRANSFERASE 24 U/L (12-78); ALBUMIN 3.7 g/dL (3.4-5.0); ALKALINE PHOSPHATASE 68 U/L (46-116); ASPARTATE AMINOTRANSFERASE 23 U/L (15-37); BILIRUBIN,TOTAL 0.4 mg/dL (0.1-1.0)
[2019-05-21 12:23] VITALS: BP 112/72
[2019-05-21] MEDS ORDERED: IBUPROFEN 400 MG TABLET PO PRN (14:15)
[2019-05-21] MEDS ORDERED: LOPERAMIDE HCL 2 MG CAPSULE PO PRN (14:15)
[2019-05-21] MEDS ORDERED: PETROLATUM,WHITE 28 GM JELLY TP PRN (14:15)
[2019-05-21] MEDS ORDERED: CloNIDine HCL 0.1 MG TABLET PO PRN (14:15)
[2019-05-21] MEDS ORDERED: GuaiFENesin/D-METHORPHAN [SUGAR-FREE] 200-20MG/10 ML SYRUP UDCUP PO PRN (14:15)
[2019-05-21] MEDS ORDERED: MAG HYDROX/AL HYDROX/SIMETH ES 30 ML SUSPENSION UDCUP PO PRN (14:15)
[2019-05-21] MEDS ORDERED: ONDANSETRON HCL 4 MG TABLET PO PRN (14:15)
[2019-05-21] MEDS ORDERED: MAGNESIUM HYDROXIDE SUSPENSION 30 ML UDCUP PO PRN (14:15)
[2019-05-21] MEDS ORDERED: ACETAMINOPHEN 325 MG TABLET PO PRN (14:15)
[2019-05-21] MEDS ORDERED: NICOTINE 14 MG/24 HOUR PATCH TD PRN (14:15)
[2019-05-21] MEDS ORDERED: ALBUTEROL SULFATE HFA 90 MCG/PUFF 8 GM INHALER IH PRN (14:15)
[2019-05-21] MEDS ORDERED: DOCUSATE SODIUM 100 MG CAPSULE PO PRN (14:15)
[2019-05-21] MEDS ORDERED: POTASSIUM CHLORIDE 20 MEQ ER TABLET PO ONE (14:15)
[2019-05-21 16:48] VITALS: BP 117/74
[2019-05-22 06:51] LABS: BASOPHILS % (AUTO) 0.7 % (0.0-2.0); EOSINOPHILS % (AUTO) 3.7 % (1.0-6.0); HEMATOCRIT 36.2 % (36-46); HEMOGLOBIN 12.1 g/dL (12.0-16.0); LYMPHOCYTES # (AUTO) 2.5 K/uL (1.0-4.8); LYMPHOCYTES % (AUTO) 41.5 % (22.0-44.0); MEAN CORPUSCULAR HEMOGLOBIN 30.1 pg (26.0-34.0); MEAN CORPUSCULAR HGB CONC 33.4 G/dL (31.0-37.0); MEAN CORPUSCULAR VOLUME 90 fL (80-100); MONOCYTES # (AUTO) 0.7 K/uL (0.1-1.0); NEUTROPHILS # (AUTO) 2.6 K/uL (1.8-7.7); NEUTROPHILS % (AUTO) 43.1 % (40.0-70.0); PLATELET COUNT (AUTO) 246 K/uL (150-450); RED BLOOD CELL COUNT(AUTO) 4.02 MIL/uL (4.00-5.20); RED CELL DISTRIBUTION WIDTH 13.9 % (11.5-14.5)
[2019-05-22 07:11] LABS: HEMOGLOBIN A1C 5.4 % (4.5-6.2)
[2019-05-22 07:32] LABS: ALANINE AMINOTRANSFERASE 20 U/L (12-78); ALBUMIN 3.2 g/dL (3.4-5.0); ALKALINE PHOSPHATASE 60 U/L (46-116); ANION GAP 7 mmol/L (8-16); ASPARTATE AMINOTRANSFERASE 23 U/L (15-37); BILIRUBIN,TOTAL 0.3 mg/dL (0.1-1.0); CARBON DIOXIDE 27 mmol/L (22-29); CHLORIDE 107 mmol/L (98-107); CHOL/HDL RATIO 3.5 (3.9-5.7); CHOLESTEROL 122 mg/dL (131-200); CREATININE 0.78 mg/dL (0.60-1.30); FREE T4 (FREE THYROXINE) 1.28 ng/dL (0.76-1.46); GLOMERULAR FILTR. RATE CALC > 60 mL/min (>60); GLUCOSE,RANDOM 75 mg/dL (70-110); HCG,QUANTITATIVE < 1 mIU/mL (0-6); HDL CHOLESTEROL 35 mg/dL (40-60); LDL CHOL (CALC.) 75 mg/dL (0-130); POTASSIUM 4.4 mmol/L (3.5-5.1); SODIUM SERUM 141 mmol/L (136-145); TOTAL PROTEIN, SERUM 6.1 g/dL (6.4-8.2); TRIGLYCERIDES 61 mg/dL (15-150); UREA NITROGEN, BLOOD 14 mg/dL (7-18)
[2019-05-22 08:00] VITALS: BP 109/63
[2019-05-22] MEDS: LORazepam 2 MG TABLET PO PRN (08:24)
[2019-05-22] MEDS: HALOPERIDOL 5 MG TABLET PO PRN (08:24)
[2019-05-22] MEDS: LevETIRAcetam 250 MG TABLET PO SCH ×2 (09:29→17:05)
[2019-05-22 10:00] LABS: APPEARANCE,URINE CLOUDY (CLEAR); BILIRUBIN,URINE NEGATIVE (NEGATIVE); GLUCOSE, URINE (UA) NEGATIVE (NEGATIVE); KETONES,URINE NEGATIVE (NEGATIVE); LEUKOCYTE ESTERASE ,URINE SMALL (NEGATIVE); NITRATE,URINE NEGATIVE (NEGATIVE); OCCULT BLOOD,URINE SMALL (NEGATIVE); PH,URINE 5.5 (5.0-8.0); PROTEIN,URINE NEGATIVE (NEGATIVE); UROBILINOGEN,URINE 0.2 mg/dL (<=1.0)
[2019-05-22 10:03] LABS: BACTERIA,URINE Few /HPF (None Seen); SQUAMOUS EPITHELIAL CELL,UR Many /LPF (None Seen)
[2019-05-22 10:08] LABS: AMPHET/METH SCREEN,URINE POSITIVE (NEGATIVE); BARBITURATE SCREEN, URINE NEGATIVE (NEGATIVE); BENZODIAZEPINES SCREEN,URINE NEGATIVE (NEGATIVE); CANNABINOID SCREEN,URINE NEGATIVE (NEGATIVE); COCAINE SCREEN,URINE NEGATIVE (NEGATIVE); METHADONE SCREEN, URINE NEGATIVE (NEGATIVE); OPIATE SCREEN,URINE NEGATIVE (NEGATIVE); PHENCYCLIDINE SCREEN,URINE NEGATIVE (NEGATIVE)
[2019-05-22 17:00] VITALS: BP 95/47
[2019-05-22] MEDS: HALOPERIDOL 5 MG TABLET PO SCH (17:04)
[2019-05-22] MEDS: BENZTROPINE MESYLATE 1 MG TABLET PO SCH (17:04)
[2019-05-23 08:00] VITALS: BP 112/76
[2019-05-23] MEDS: LevETIRAcetam 250 MG TABLET PO SCH ×2 (09:08→16:44)
[2019-05-23] MEDS: BENZTROPINE MESYLATE 1 MG TABLET PO SCH ×2 (09:08→16:44)
[2019-05-23] MEDS: CEPHALEXIN MONOHYDRATE 500 MG CAPSULE PO SCH ×3 (09:08→16:44)
[2019-05-23] MEDS: HALOPERIDOL 5 MG TABLET PO SCH ×2 (09:08→16:44)
[2019-05-23 16:57] VITALS: BP 113/67
[2019-05-23] MEDS: HALOPERIDOL 5 MG TABLET PO PRN (20:28)
[2019-05-23] MEDS: LORazepam 2 MG TABLET PO PRN (22:37)
[2019-05-24 08:00] VITALS: BP 99/69
[2019-05-24] MEDS: CEPHALEXIN MONOHYDRATE 500 MG CAPSULE PO SCH ×3 (08:43→16:21)
[2019-05-24] MEDS: BENZTROPINE MESYLATE 1 MG TABLET PO SCH ×2 (08:43→16:21)
[2019-05-24] MEDS: LevETIRAcetam 250 MG TABLET PO SCH ×2 (08:43→16:21)
[2019-05-24] MEDS: HALOPERIDOL 5 MG TABLET PO SCH ×2 (08:44→16:21)
[2019-05-24 16:25] VITALS: BP 111/62
[2019-05-24] MEDS: LORazepam 2 MG TABLET PO PRN (16:38)
[2019-05-25 01:15] VITALS: BP 89/55
[2019-05-25 08:00] VITALS: BP 107/49
[2019-05-25] MEDS: LevETIRAcetam 250 MG TABLET PO SCH (08:47)
[2019-05-25] MEDS: CEPHALEXIN MONOHYDRATE 500 MG CAPSULE PO SCH ×2 (08:47→13:22)
[2019-05-25] MEDS: BENZTROPINE MESYLATE 1 MG TABLET PO SCH (08:47)
[2019-05-25] MEDS: HALOPERIDOL 5 MG TABLET PO SCH (08:47)
[2019-05-25] MEDS: LORazepam 2 MG TABLET PO PRN (08:48)
[2019-05-25] MEDS ORDERED: HALO5TAB2 PO (12:00)
[2019-05-25] MEDS ORDERED: CEPH500 PO (12:06)
== END 2019-05-25 13:50 | disposition home or self-care (01) | DRG 750 ==
LOC: EMS 09:19 → 3EI 11:07
PROVIDERS: ADMIT Psychiatry & Neurology Psychiatry; ATTEND Psychiatry & Neurology Psychiatry
DX: F25.0 Schizoaffective disorder, bipolar type (principal); M41.9 Scoliosis, unspecified; G40.909 Epilepsy, unspecified, not intractable, without status epilepticus; E03.9 Hypothyroidism, unspecified; E87.6 Hypokalemia; F19.90 Other psychoactive substance use, unspecified, uncomplicated; F43.10 Post-traumatic stress disorder, unspecified; K21.9 Gastro-esophageal reflux disease without esophagitis; K59.00 Constipation, unspecified; N39.0 Urinary tract infection, site not specified; F17.210 Nicotine dependence, cigarettes, uncomplicated; F11.90 Opioid use, unspecified, uncomplicated; Z91.5 Personal history of self-harm; Z79.899 Other long term (current) drug therapy
CPT/HCPCS: 80307; 83036; 84439; 84443; 87086; 96372; J1200; J1630; J2060

== ENCOUNTER 2019-06-04 10:48 | Emergency (ER) | payer MEDICAID ==
[~2019-06-04] VITALS: Ht 170.2 cm; Wt 72.6 kg
[~2019-06-04 10:48] MED LIST changes: +CEPH500 PO; -DSS100 PO; +HALO5TAB2 PO; -MACR100 PO; -OMEP20 PO; -QUET100T PO; -QUET200T PO
[2019-06-04] MEDS ORDERED: BENZ1TAB10 PO (11:08)
[2019-06-04] MEDS ORDERED: QUET200T PO (11:08)
[2019-06-04] MEDS ORDERED: HALO5TAB2 PO (11:08)
[2019-06-04] MEDS ORDERED: NAPR-1025 PO (11:08)
[2019-06-04] MEDS ORDERED: LEVE250T55 PO (11:08)
[2019-06-04] MEDS ORDERED: GABA-531 PO ×2 (11:08)
[2019-06-04] MEDS ORDERED: CEPH500 PO (11:08)
[2019-06-04 11:35] LABS: BASOPHILS % (AUTO) 0.5 % (0.0-2.0); EOSINOPHILS % (AUTO) 0.9 % (1.0-6.0); HEMATOCRIT 41.2 % (36-46); HEMOGLOBIN 13.7 g/dL (12.0-16.0); LYMPHOCYTES % (AUTO) 19.9 % (22.0-44.0); MEAN CORPUSCULAR HGB CONC 33.2 G/dL (31.0-37.0); MEAN CORPUSCULAR VOLUME 90 fL (80-100); MONOCYTES # (AUTO) 0.6 K/uL (0.1-1.0); MONOCYTES % (AUTO) 6.4 % (2.0-9.0); NEUTROPHILS # (AUTO) 7.1 K/uL (1.8-7.7); NEUTROPHILS % (AUTO) 72.3 % (40.0-70.0); PLATELET COUNT (AUTO) 274 K/uL (150-450); RED BLOOD CELL COUNT(AUTO) 4.57 MIL/uL (4.00-5.20); RED CELL DISTRIBUTION WIDTH 13.6 % (11.5-14.5)
[2019-06-04 11:38] LABS: APPEARANCE,URINE CLEAR (CLEAR); BILIRUBIN,URINE NEGATIVE (NEGATIVE); GLUCOSE, URINE (UA) NEGATIVE (NEGATIVE); KETONES,URINE NEGATIVE (NEGATIVE); LEUKOCYTE ESTERASE ,URINE NEGATIVE (NEGATIVE); NITRATE,URINE NEGATIVE (NEGATIVE); OCCULT BLOOD,URINE TRACE (NEGATIVE); PH,URINE 6.5 (5.0-8.0); PROTEIN,URINE NEGATIVE (NEGATIVE); UROBILINOGEN,URINE 0.2 mg/dL (<=1.0)
[2019-06-04 11:44] LABS: AMPHET/METH SCREEN,URINE NEGATIVE (NEGATIVE); BARBITURATE SCREEN, URINE NEGATIVE (NEGATIVE); BENZODIAZEPINES SCREEN,URINE NEGATIVE (NEGATIVE); CANNABINOID SCREEN,URINE NEGATIVE (NEGATIVE); COCAINE SCREEN,URINE NEGATIVE (NEGATIVE); METHADONE SCREEN, URINE NEGATIVE (NEGATIVE); OPIATE SCREEN,URINE NEGATIVE (NEGATIVE); PHENCYCLIDINE SCREEN,URINE NEGATIVE (NEGATIVE)
[2019-06-04 11:46] LABS: ANION GAP 10 mmol/L (8-16); CALCIUM, TOTAL 9.3 mg/dL (8.8-10.5); CARBON DIOXIDE 27 mmol/L (22-29); CHLORIDE 106 mmol/L (98-107); CREATININE 0.77 mg/dL (0.60-1.30); GLOMERULAR FILTR. RATE CALC > 60 mL/min (>60); GLUCOSE,RANDOM 88 mg/dL (70-110); POTASSIUM 3.6 mmol/L (3.5-5.1); SODIUM SERUM 143 mmol/L (136-145); UREA NITROGEN, BLOOD 9 mg/dL (7-18)
[2019-06-04 11:48] LABS: BACTERIA,URINE None Seen /HPF (None Seen); RBC,URINE 0-2 /HPF (0-2); SQUAMOUS EPITHELIAL CELL,UR Moderate /LPF (None Seen); WBC,URINE None Seen /HPF (0-5)
[2019-06-04 11:58] LABS: ALANINE AMINOTRANSFERASE 29 U/L (12-78); ALBUMIN 4.1 g/dL (3.4-5.0); ALKALINE PHOSPHATASE 67 U/L (46-116); ASPARTATE AMINOTRANSFERASE 20 U/L (15-37); BILIRUBIN,TOTAL 0.3 mg/dL (0.1-1.0); HCG,QUANTITATIVE < 1 mIU/mL (0-6); TOTAL PROTEIN, SERUM 7.6 g/dL (6.4-8.2)
[2019-06-04 13:02] VITALS: BP 108/72
== END 2019-06-04 13:23 | disposition home or self-care (01) ==
LOC: EMS 10:50
DX: R42 Dizziness and giddiness (principal); R51 Headache; H53.8 Other visual disturbances; F31.9 Bipolar disorder, unspecified; F20.9 Schizophrenia, unspecified; F17.210 Nicotine dependence, cigarettes, uncomplicated; F11.90 Opioid use, unspecified, uncomplicated; F19.90 Other psychoactive substance use, unspecified, uncomplicated; Z88.8 Allergy status to other drugs, medicaments and biological substances; Z91.011 Allergy to milk products
CPT/HCPCS: 36415; 70450; 80053; 80307; 81001; 82948; 82962; 84702; 85025; 93005; 99285; G0480

== ENCOUNTER 2019-11-25 15:53 | Inpatient (IN) | payer MEDICAID, OTHER ==
[~2019-11-25] VITALS: Ht 170.2 cm; Wt 70.3 kg
[~2019-11-25 15:53] MED LIST changes: +GABA-531 PO; +LEVE250T55 PO; -LEVE500T53 PO; +NAPR-1025 PO; +QUET200T PO
[2019-11-25] MEDS ORDERED: HALOPERIDOL 5 MG TABLET PO PRN (16:30)
[2019-11-25] MEDS ORDERED: HALOPERIDOL 5 MG TABLET PO ONE (17:15)
[2019-11-25] MEDS: LORazepam 2 MG TABLET PO PRN (17:18)
[2019-11-25 18:24] LABS: BASOPHILS % (AUTO) 0.3 % (0.0-2.0); EOSINOPHILS % (AUTO) 0.2 % (1.0-6.0); HEMATOCRIT 44.1 % (36-46); LYMPHOCYTES # (AUTO) 1.9 K/uL (1.0-4.8); LYMPHOCYTES % (AUTO) 19.1 % (22.0-44.0); MEAN CORPUSCULAR HEMOGLOBIN 30.7 pg (26.0-34.0); MEAN CORPUSCULAR HGB CONC 34.1 G/dL (31.0-37.0); MEAN CORPUSCULAR VOLUME 90 fL (80-100); MONOCYTES # (AUTO) 0.9 K/uL (0.1-1.0); MONOCYTES % (AUTO) 9.2 % (2.0-9.0); NEUTROPHILS # (AUTO) 7.1 K/uL (1.8-7.7); NEUTROPHILS % (AUTO) 71.2 % (40.0-70.0); PLATELET COUNT (AUTO) 307 K/uL (150-450); RED CELL DISTRIBUTION WIDTH 12.9 % (11.5-14.5)
[2019-11-25 18:35] LABS: ANION GAP 15 mmol/L (8-16); CALCIUM, TOTAL 9.5 mg/dL (8.8-10.5); CARBON DIOXIDE 24 mmol/L (22-29); CHLORIDE 103 mmol/L (98-107); CREATININE 1.03 mg/dL (0.60-1.30); GLOMERULAR FILTR. RATE CALC > 60 mL/min (>60); GLUCOSE,RANDOM 120 mg/dL (70-110); POTASSIUM 4.1 mmol/L (3.5-5.1); SODIUM SERUM 142 mmol/L (136-145)
[2019-11-25 18:51] LABS: ALANINE AMINOTRANSFERASE 65 U/L (12-78); ALBUMIN 4.5 g/dL (3.4-5.0); ALKALINE PHOSPHATASE 93 U/L (46-116); ASPARTATE AMINOTRANSFERASE 190 U/L (15-37); BILIRUBIN,TOTAL 0.6 mg/dL (0.1-1.0); HCG,QUANTITATIVE < 1 mIU/mL (0-6); TOTAL PROTEIN, SERUM 8.5 g/dL (6.4-8.2); UREA NITROGEN, BLOOD 12 mg/dL (7-18)
[2019-11-25] MEDS ORDERED: INFLUENZA VIRUS VACCINE QVS 2019-20 (3YR+)/PF 60 MCG/0.5 ML SYRINGE IM ONE (21:30)
[2019-11-26 06:31] VITALS: BP 103/69
[2019-11-26] MEDS: NAPROXEN 500 MG TABLET PO SCH ×2 (06:38→16:59)
[2019-11-26] MEDS ORDERED: PETROLATUM,WHITE 28 GM JELLY TP PRN (07:15)
[2019-11-26] MEDS ORDERED: ALBUTEROL SULFATE HFA 90 MCG/PUFF 8 GM INHALER IH PRN (07:15)
[2019-11-26] MEDS ORDERED: LOPERAMIDE HCL 2 MG CAPSULE PO PRN (07:15)
[2019-11-26] MEDS ORDERED: DOCUSATE SODIUM 100 MG CAPSULE PO PRN (07:15)
[2019-11-26] MEDS ORDERED: MAG HYDROX/AL HYDROX/SIMETH ES 30 ML SUSPENSION UDCUP PO PRN (07:15)
[2019-11-26] MEDS ORDERED: ONDANSETRON HCL 4 MG TABLET PO PRN (07:15)
[2019-11-26] MEDS ORDERED: CloNIDine HCL 0.1 MG TABLET PO PRN (07:15)
[2019-11-26] MEDS ORDERED: ACETAMINOPHEN 325 MG TABLET PO PRN (07:15)
[2019-11-26] MEDS ORDERED: NICOTINE 14 MG/24 HOUR PATCH TD PRN (07:15)
[2019-11-26] MEDS ORDERED: MAGNESIUM HYDROXIDE SUSPENSION 30 ML UDCUP PO PRN (07:15)
[2019-11-26 08:23] VITALS: BP 111/61
[2019-11-26] MEDS: LevETIRAcetam 250 MG TABLET PO SCH ×2 (08:56→16:59)
[2019-11-26 16:06] VITALS: BP 110/66
[2019-11-26] MEDS: LORazepam 2 MG TABLET PO PRN (17:03)
[2019-11-26] MEDS: QUEtiapine FUMARATE 200 MG TABLET PO SCH (21:00)
[2019-11-27 05:01] VITALS: BP 100/62
[2019-11-27] MEDS: NAPROXEN 500 MG TABLET PO SCH ×2 (06:54→16:46)
[2019-11-27 08:16] VITALS: BP 104/64
[2019-11-27] MEDS: LevETIRAcetam 250 MG TABLET PO SCH ×2 (09:36→16:46)
[2019-11-27] MEDS: HALOPERIDOL 5 MG TABLET PO SCH ×2 (09:36→16:47)
[2019-11-27] MEDS: LORazepam 2 MG TABLET PO PRN (09:36)
[2019-11-27 16:04] VITALS: BP 100/62
[2019-11-27] MEDS: BENZTROPINE MESYLATE 1 MG TABLET PO SCH (20:33)
[2019-11-27] MEDS: QUEtiapine FUMARATE 200 MG TABLET PO SCH (20:33)
[2019-11-27 22:46] VITALS: BP 113/58
[2019-11-27] MEDS: IBUPROFEN 400 MG TABLET PO PRN (22:55)
[2019-11-28 00:15] VITALS: BP 108/60
[2019-11-28] MEDS: ZOLPIDEM TARTRATE 10 MG TABLET PO PRN (00:37)
[2019-11-28] MEDS: NAPROXEN 500 MG TABLET PO SCH ×2 (06:37→16:29)
[2019-11-28] MEDS: LevETIRAcetam 250 MG TABLET PO SCH ×2 (08:54→16:28)
[2019-11-28] MEDS: BENZTROPINE MESYLATE 1 MG TABLET PO SCH ×2 (08:55→16:29)
[2019-11-28] MEDS: LORazepam 2 MG TABLET PO PRN (08:55)
[2019-11-28] MEDS: HALOPERIDOL 5 MG TABLET PO SCH ×2 (08:55→16:29)
[2019-11-28] MEDS: QUEtiapine FUMARATE 200 MG TABLET PO SCH (21:00)
[2019-11-28 21:27] VITALS: BP 107/67
[2019-11-29 05:39] VITALS: BP 102/62
[2019-11-29] MEDS: NAPROXEN 500 MG TABLET PO SCH ×2 (07:03→16:56)
[2019-11-29 08:15] VITALS: BP 100/54
[2019-11-29] MEDS: LevETIRAcetam 250 MG TABLET PO SCH ×2 (08:50→16:55)
[2019-11-29] MEDS: HALOPERIDOL 5 MG TABLET PO SCH ×2 (08:50→16:56)
[2019-11-29] MEDS: BENZTROPINE MESYLATE 1 MG TABLET PO SCH ×2 (08:50→16:56)
[2019-11-29 16:30] VITALS: BP 105/58
[2019-11-29] MEDS: QUEtiapine FUMARATE 200 MG TABLET PO SCH (21:00)
[2019-11-29] MEDS: ZOLPIDEM TARTRATE 10 MG TABLET PO PRN (21:23)
[2019-11-30 05:46] VITALS: BP 102/67
[2019-11-30] MEDS: NAPROXEN 500 MG TABLET PO SCH ×2 (06:50→16:37)
[2019-11-30] MEDS: HALOPERIDOL 5 MG TABLET PO SCH ×2 (08:58→16:36)
[2019-11-30] MEDS: LevETIRAcetam 250 MG TABLET PO SCH ×2 (08:58→16:37)
[2019-11-30] MEDS: BENZTROPINE MESYLATE 1 MG TABLET PO SCH ×2 (08:58→16:37)
[2019-11-30 10:00] VITALS: BP 108/72
[2019-11-30 16:21] VITALS: BP 102/68
[2019-11-30] MEDS: LORazepam 2 MG TABLET PO PRN (18:46)
[2019-11-30] MEDS: ZOLPIDEM TARTRATE 10 MG TABLET PO PRN (20:46)
[2019-11-30] MEDS: QUEtiapine FUMARATE 200 MG TABLET PO SCH (21:00)
[2019-12-01 02:45] VITALS: BP 100/68
[2019-12-01] MEDS: NAPROXEN 500 MG TABLET PO SCH ×2 (06:57→16:41)
[2019-12-01 08:21] VITALS: BP 110/74
[2019-12-01] MEDS: LevETIRAcetam 250 MG TABLET PO SCH ×2 (09:14→16:40)
[2019-12-01] MEDS: HALOPERIDOL 5 MG TABLET PO SCH ×2 (09:14→16:41)
[2019-12-01] MEDS: BENZTROPINE MESYLATE 1 MG TABLET PO SCH ×2 (09:18→16:41)
[2019-12-01 16:00] VITALS: BP 106/64
[2019-12-01] MEDS: LORazepam 2 MG TABLET PO PRN (18:18)
[2019-12-01] MEDS: GuaiFENesin/D-METHORPHAN [SUGAR-FREE] 200-20MG/10 ML SYRUP UDCUP PO PRN (19:38)
[2019-12-01] MEDS: ZOLPIDEM TARTRATE 10 MG TABLET PO PRN (20:29)
[2019-12-01] MEDS: QUEtiapine FUMARATE 200 MG TABLET PO SCH (21:00)
[2019-12-02 06:14] VITALS: BP 105/61
[2019-12-02] MEDS: NAPROXEN 500 MG TABLET PO SCH ×2 (06:46→16:29)
[2019-12-02] MEDS: HALOPERIDOL 5 MG TABLET PO SCH ×2 (08:23→16:30)
[2019-12-02] MEDS: BENZTROPINE MESYLATE 1 MG TABLET PO SCH ×2 (08:23→16:29)
[2019-12-02] MEDS: LevETIRAcetam 250 MG TABLET PO SCH ×2 (08:24→16:29)
[2019-12-02 17:28] VITALS: BP 103/62
[2019-12-02] MEDS: LORazepam 2 MG TABLET PO PRN (17:34)
[2019-12-02] MEDS: ZOLPIDEM TARTRATE 10 MG TABLET PO PRN (20:36)
[2019-12-02] MEDS: QUEtiapine FUMARATE 200 MG TABLET PO SCH (21:00)
[2019-12-03 06:13] VITALS: BP 102/64
[2019-12-03] MEDS: NAPROXEN 500 MG TABLET PO SCH ×2 (06:51→16:37)
[2019-12-03] MEDS: HALOPERIDOL 5 MG TABLET PO SCH (08:30)
[2019-12-03] MEDS: BENZTROPINE MESYLATE 1 MG TABLET PO SCH ×2 (08:30→16:35)
[2019-12-03] MEDS: LevETIRAcetam 250 MG TABLET PO SCH ×2 (08:31→16:35)
[2019-12-03] MEDS: OLANZapine 10 MG TABLET PO SCH ×2 (10:01→17:00)
[2019-12-03 17:08] VITALS: BP 104/61
[2019-12-03] MEDS: LORazepam 2 MG TABLET PO PRN (17:56)
[2019-12-03] MEDS: QUEtiapine FUMARATE 200 MG TABLET PO SCH (21:00)
[2019-12-03] MEDS: IBUPROFEN 400 MG TABLET PO PRN (21:14)
[2019-12-03 21:15] VITALS: BP 100/59
[2019-12-04 02:12] VITALS: BP 101/61
[2019-12-04] MEDS: NAPROXEN 500 MG TABLET PO SCH ×2 (06:31→16:22)
[2019-12-04] MEDS: OLANZapine 10 MG TABLET PO SCH (08:52)
[2019-12-04] MEDS: BENZTROPINE MESYLATE 1 MG TABLET PO SCH ×2 (08:52→16:22)
[2019-12-04] MEDS: LevETIRAcetam 250 MG TABLET PO SCH ×2 (08:52→16:21)
[2019-12-04] MEDS: ARIPiprazole 15 MG TABLET PO SCH (10:39)
[2019-12-04 16:45] VITALS: BP 100/70
[2019-12-05 04:57] VITALS: BP 112/78
[2019-12-05] MEDS: NAPROXEN 500 MG TABLET PO SCH ×2 (06:43→16:55)
[2019-12-05] MEDS: LevETIRAcetam 250 MG TABLET PO SCH ×2 (08:21→16:31)
[2019-12-05] MEDS: ARIPiprazole 15 MG TABLET PO SCH (08:21)
[2019-12-05] MEDS: BENZTROPINE MESYLATE 1 MG TABLET PO SCH ×2 (08:21→16:31)
[2019-12-05 16:00] VITALS: BP 116/65
[2019-12-05] MEDS: ZOLPIDEM TARTRATE 10 MG TABLET PO PRN (19:09)
[2019-12-06] MEDS: GuaiFENesin/D-METHORPHAN [SUGAR-FREE] 200-20MG/10 ML SYRUP UDCUP PO PRN ×2 (00:23→11:07)
[2019-12-06 05:22] VITALS: BP 100/65
[2019-12-06] MEDS: NAPROXEN 500 MG TABLET PO SCH (06:06)
[2019-12-06 08:05] VITALS: BP 114/73
[2019-12-06] MEDS: ARIPiprazole 15 MG TABLET PO SCH (08:46)
[2019-12-06] MEDS: BENZTROPINE MESYLATE 1 MG TABLET PO SCH (08:47)
[2019-12-06] MEDS: LevETIRAcetam 250 MG TABLET PO SCH (08:49)
[2019-12-06] MEDS ORDERED: ARIP15TA2 PO (12:27)
== END 2019-12-06 13:25 | disposition home or self-care (01) | DRG 750 ==
LOC: EMS 15:54 → B3A 17:13
PROVIDERS: ADMIT Psychiatry & Neurology Psychiatry; ATTEND Psychiatry & Neurology Psychiatry
DX: F20.0 Paranoid schizophrenia (principal); R45.851 Suicidal ideations; M41.9 Scoliosis, unspecified; G40.909 Epilepsy, unspecified, not intractable, without status epilepticus; E03.9 Hypothyroidism, unspecified; Z28.21 Immunization not carried out because of patient refusal; F43.10 Post-traumatic stress disorder, unspecified; F17.210 Nicotine dependence, cigarettes, uncomplicated; F15.90 Other stimulant use, unspecified, uncomplicated; Z91.14 Patient's other noncompliance with medication regimen; F31.9 Bipolar disorder, unspecified; F41.9 Anxiety disorder, unspecified; G47.00 Insomnia, unspecified; R74.0 Nonspecific elevation of levels of transaminase and lactic acid dehydrogenase [LDH]
CPT/HCPCS: 87081; G0480; J3535

== ENCOUNTER 2019-12-11 17:10 | Inpatient (IN) | payer MEDICAID ==
[~2019-12-11] VITALS: Ht 170.2 cm; Wt 71.2 kg
[~2019-12-11 17:10] MED LIST changes: +ARIP15TA2 PO; -CEPH500 PO; -GABA-531 PO; -HALO5TAB2 PO; -QUET200T PO
[2019-12-11] MEDS ORDERED: HALOPERIDOL 5 MG TABLET PO PRN (18:45)
[2019-12-11] MEDS ORDERED: INFLUENZA VIRUS VACCINE QVS 2019-20 (3YR+)/PF 60 MCG/0.5 ML SYRINGE IM ONE (20:15)
[2019-12-11] MEDS: LORazepam 2 MG TABLET PO PRN (20:29)
[2019-12-11] MEDS: ZOLPIDEM TARTRATE 10 MG TABLET PO PRN (21:35)
[2019-12-11 23:49] VITALS: BP 127/66
[2019-12-12 08:38] VITALS: BP 101/71
[2019-12-12 08:50] LABS: BASOPHILS % (AUTO) 0.6 % (0.0-2.0); EOSINOPHILS % (AUTO) 1.9 % (1.0-6.0); HEMATOCRIT 37.8 % (36-46); HEMOGLOBIN 13.2 g/dL (12.0-16.0); LYMPHOCYTES # (AUTO) 1.7 K/uL (1.0-4.8); LYMPHOCYTES % (AUTO) 20.4 % (22.0-44.0); MEAN CORPUSCULAR HEMOGLOBIN 31.5 pg (26.0-34.0); MEAN CORPUSCULAR HGB CONC 34.9 G/dL (31.0-37.0); MEAN CORPUSCULAR VOLUME 90 fL (80-100); MONOCYTES # (AUTO) 0.8 K/uL (0.1-1.0); MONOCYTES % (AUTO) 9.6 % (2.0-9.0); NEUTROPHILS # (AUTO) 5.7 K/uL (1.8-7.7); NEUTROPHILS % (AUTO) 67.5 % (40.0-70.0); PLATELET COUNT (AUTO) 247 K/uL (150-450); RED BLOOD CELL COUNT(AUTO) 4.19 MIL/uL (4.00-5.20); RED CELL DISTRIBUTION WIDTH 12.6 % (11.5-14.5)
[2019-12-12] MEDS ORDERED: LevETIRAcetam 250 MG TABLET PO SCH (09:00)
[2019-12-12 09:24] LABS: ALANINE AMINOTRANSFERASE 25 U/L (12-78); ALBUMIN 3.5 g/dL (3.4-5.0); ALKALINE PHOSPHATASE 73 U/L (46-116); ANION GAP 7 mmol/L (8-16); ASPARTATE AMINOTRANSFERASE 19 U/L (15-37); BILIRUBIN,TOTAL 0.6 mg/dL (0.1-1.0); CALCIUM, TOTAL 8.6 mg/dL (8.8-10.5); CARBON DIOXIDE 30 mmol/L (22-29); CHLORIDE 105 mmol/L (98-107); CHOLESTEROL 137 mg/dL (131-200); CREATININE 0.76 mg/dL (0.60-1.30); FREE T4 (FREE THYROXINE) 1.35 ng/dL (0.76-1.46); GLOMERULAR FILTR. RATE CALC > 60 mL/min (>60); GLUCOSE,RANDOM 79 mg/dL (70-110); HCG,QUANTITATIVE < 1 mIU/mL (0-6); HDL CHOLESTEROL 34 mg/dL (40-60); LDL CHOL (CALC.) 93 mg/dL (0-130); POTASSIUM 3.4 mmol/L (3.5-5.1); SODIUM SERUM 142 mmol/L (136-145); THYROID STIMULATING HORMONE 0.81 uIU/mL (0.36-3.74); TOTAL PROTEIN, SERUM 6.7 g/dL (6.4-8.2); TRIGLYCERIDES 50 mg/dL (15-150); UREA NITROGEN, BLOOD 14 mg/dL (7-18)
[2019-12-12] MEDS: ARIPiprazole 15 MG TABLET PO SCH (09:24)
[2019-12-12] MEDS: BENZTROPINE MESYLATE 1 MG TABLET PO SCH ×2 (09:24→16:44)
[2019-12-12 09:33] LABS: HEMOGLOBIN A1C 5.7 % (4.5-6.2)
[2019-12-12] MEDS ORDERED: MAGNESIUM HYDROXIDE SUSPENSION 30 ML UDCUP PO PRN (10:15)
[2019-12-12] MEDS ORDERED: CloNIDine HCL 0.1 MG TABLET PO PRN (10:15)
[2019-12-12] MEDS ORDERED: ONDANSETRON HCL 4 MG TABLET PO PRN (10:15)
[2019-12-12] MEDS ORDERED: ACETAMINOPHEN 325 MG TABLET PO PRN (10:15)
[2019-12-12] MEDS ORDERED: DOCUSATE SODIUM 100 MG CAPSULE PO PRN (10:15)
[2019-12-12] MEDS ORDERED: ALBUTEROL SULFATE HFA 90 MCG/PUFF 8 GM INHALER IH PRN (10:15)
[2019-12-12] MEDS ORDERED: MAG HYDROX/AL HYDROX/SIMETH ES 30 ML SUSPENSION UDCUP PO PRN (10:15)
[2019-12-12] MEDS ORDERED: LOPERAMIDE HCL 2 MG CAPSULE PO PRN (10:15)
[2019-12-12] MEDS ORDERED: IBUPROFEN 400 MG TABLET PO PRN (10:15)
[2019-12-12] MEDS ORDERED: PETROLATUM,WHITE 28 GM JELLY TP PRN (10:15)
[2019-12-12] MEDS ORDERED: NICOTINE 14 MG/24 HOUR PATCH TD PRN (10:15)
[2019-12-12 16:00] VITALS: BP 128/79
[2019-12-12] MEDS ORDERED: POTASSIUM CHLORIDE 20 MEQ ER TABLET PO ONE (16:15)
[2019-12-12 16:24] VITALS: BP 128/79
[2019-12-12] MEDS: LevETIRAcetam 250 MG TABLET PO SCH (16:44)
[2019-12-12] MEDS: LORazepam 2 MG TABLET PO PRN (21:07)
[2019-12-13 05:24] VITALS: BP 101/61
[2019-12-13 08:00] VITALS: BP 104/68
[2019-12-13] MEDS ORDERED: POTASSIUM CHLORIDE 10% 40 MEQ/30 ML LIQUID UDCUP PO ONE (08:30)
[2019-12-13] MEDS: LevETIRAcetam 250 MG TABLET PO SCH ×2 (09:15→16:43)
[2019-12-13] MEDS: BENZTROPINE MESYLATE 1 MG TABLET PO SCH ×2 (09:15→16:43)
[2019-12-13] MEDS: ARIPiprazole 15 MG TABLET PO SCH (09:15)
[2019-12-13] MEDS: LORazepam 2 MG TABLET PO PRN (11:52)
[2019-12-13 16:23] VITALS: BP 106/61
[2019-12-14 05:23] VITALS: BP 124/73
[2019-12-14] MEDS: ARIPiprazole 15 MG TABLET PO SCH (08:26)
[2019-12-14] MEDS: LevETIRAcetam 250 MG TABLET PO SCH ×2 (08:26→16:22)
[2019-12-14] MEDS: BENZTROPINE MESYLATE 1 MG TABLET PO SCH ×2 (08:26→16:22)
[2019-12-14 08:30] VITALS: BP 120/90
[2019-12-14] MEDS: GuaiFENesin/D-METHORPHAN [SUGAR-FREE] 200-20MG/10 ML SYRUP UDCUP PO PRN ×2 (08:32→17:17)
[2019-12-14 16:13] VITALS: BP 104/60
[2019-12-14] MEDS: LORazepam 2 MG TABLET PO PRN (16:22)
[2019-12-14] MEDS: ZOLPIDEM TARTRATE 10 MG TABLET PO PRN (20:19)
[2019-12-15 05:20] VITALS: BP 112/84
[2019-12-15 07:39] LABS: ALANINE AMINOTRANSFERASE 20 U/L (12-78); ALBUMIN 3.3 g/dL (3.4-5.0); ALKALINE PHOSPHATASE 73 U/L (46-116); ANION GAP 5 mmol/L (8-16); ASPARTATE AMINOTRANSFERASE 15 U/L (15-37); BILIRUBIN,TOTAL 0.2 mg/dL (0.1-1.0); CALCIUM, TOTAL 8.6 mg/dL (8.8-10.5); CARBON DIOXIDE 32 mmol/L (22-29); CHLORIDE 104 mmol/L (98-107); CREATININE 0.78 mg/dL (0.60-1.30); GLOMERULAR FILTR. RATE CALC > 60 mL/min (>60); GLUCOSE,RANDOM 90 mg/dL (70-110); POTASSIUM 4.1 mmol/L (3.5-5.1); SODIUM SERUM 141 mmol/L (136-145); TOTAL PROTEIN, SERUM 6.5 g/dL (6.4-8.2); UREA NITROGEN, BLOOD 9 mg/dL (7-18)
[2019-12-15] MEDS: ARIPiprazole 15 MG TABLET PO SCH (08:37)
[2019-12-15] MEDS: BENZTROPINE MESYLATE 1 MG TABLET PO SCH ×2 (08:37→16:44)
[2019-12-15] MEDS: LevETIRAcetam 250 MG TABLET PO SCH ×2 (08:38→16:43)
[2019-12-15 08:47] LABS: APPEARANCE,URINE CLOUDY (CLEAR); BILIRUBIN,URINE NEGATIVE (NEGATIVE); GLUCOSE, URINE (UA) NEGATIVE (NEGATIVE); KETONES,URINE NEGATIVE (NEGATIVE); LEUKOCYTE ESTERASE ,URINE SMALL (NEGATIVE); NITRATE,URINE NEGATIVE (NEGATIVE); OCCULT BLOOD,URINE MODERATE (NEGATIVE); PH,URINE 5.5 (5.0-8.0); PROTEIN,URINE NEGATIVE (NEGATIVE); UROBILINOGEN,URINE 0.2 mg/dL (<=1.0)
[2019-12-15 08:52] LABS: AMPHET/METH SCREEN,URINE NEGATIVE (NEGATIVE); BARBITURATE SCREEN, URINE NEGATIVE (NEGATIVE); BENZODIAZEPINES SCREEN,URINE NEGATIVE (NEGATIVE); CANNABINOID SCREEN,URINE NEGATIVE (NEGATIVE); COCAINE SCREEN,URINE NEGATIVE (NEGATIVE); METHADONE SCREEN, URINE NEGATIVE (NEGATIVE); OPIATE SCREEN,URINE NEGATIVE (NEGATIVE)
[2019-12-15 08:57] LABS: PHENCYCLIDINE SCREEN,URINE NEGATIVE (NEGATIVE)
[2019-12-15 09:18] LABS: BACTERIA,URINE Few /HPF (None Seen); SQUAMOUS EPITHELIAL CELL,UR Moderate /LPF (None Seen); WBC,URINE 0-2 /HPF (0-5)
[2019-12-15] MEDS: LORazepam 2 MG TABLET PO PRN (18:29)
[2019-12-15] MEDS: GuaiFENesin/D-METHORPHAN [SUGAR-FREE] 200-20MG/10 ML SYRUP UDCUP PO PRN (18:29)
[2019-12-16 05:20] VITALS: BP 112/70
[2019-12-16] MEDS: BENZTROPINE MESYLATE 1 MG TABLET PO SCH ×2 (09:57→16:44)
[2019-12-16] MEDS: LevETIRAcetam 250 MG TABLET PO SCH ×2 (09:57→16:44)
[2019-12-16] MEDS: ARIPiprazole 15 MG TABLET PO SCH (09:57)
[2019-12-16] MEDS: GuaiFENesin/D-METHORPHAN [SUGAR-FREE] 200-20MG/10 ML SYRUP UDCUP PO PRN ×2 (09:58→16:46)
[2019-12-16 16:22] VITALS: BP 103/70
[2019-12-16] MEDS: ZOLPIDEM TARTRATE 10 MG TABLET PO PRN (21:30)
[2019-12-17 05:15] VITALS: BP 100/62
[2019-12-17] MEDS: BENZTROPINE MESYLATE 1 MG TABLET PO SCH ×2 (08:12→16:17)
[2019-12-17] MEDS: LevETIRAcetam 250 MG TABLET PO SCH ×2 (08:13→16:17)
[2019-12-17 08:15] VITALS: BP 106/59
[2019-12-17] MEDS ORDERED: ARIPiprazole 10 MG TABLET PO SCH (09:00)
[2019-12-17] MEDS: GuaiFENesin/D-METHORPHAN [SUGAR-FREE] 200-20MG/10 ML SYRUP UDCUP PO PRN ×2 (09:00→17:35)
[2019-12-17] MEDS ORDERED: ARIPiprazole 15 MG TABLET PO SCH (10:30)
[2019-12-17] MEDS ORDERED: ARIPiprazole 10 MG TABLET PO ONE (10:45)
[2019-12-17 16:02] VITALS: BP 106/74
[2019-12-17] MEDS: BENZOCAINE/MENTHOL LOZENGE PO PRN (20:49)
[2019-12-17] MEDS: ZOLPIDEM TARTRATE 10 MG TABLET PO PRN (20:49)
[2019-12-18 05:57] VITALS: BP 123/67
[2019-12-18] MEDS: BENZTROPINE MESYLATE 1 MG TABLET PO SCH (08:17)
[2019-12-18] MEDS: LevETIRAcetam 250 MG TABLET PO SCH (08:17)
[2019-12-18 08:23] VITALS: BP 116/71
[2019-12-18] MEDS: BENZOCAINE/MENTHOL LOZENGE PO PRN (08:36)
[2019-12-18] MEDS: GuaiFENesin/D-METHORPHAN [SUGAR-FREE] 200-20MG/10 ML SYRUP UDCUP PO PRN (08:36)
[2019-12-18] MEDS ORDERED: ARIPiprazole 15 MG TABLET PO SCH (09:00)
[2019-12-18] MEDS ORDERED: ARIP15TA2 PO (11:07)
== END 2019-12-18 13:30 | disposition home or self-care (01) | DRG 750 ==
LOC: B3A 18:42
PROVIDERS: ATTEND Psychiatry & Neurology Psychiatry
DX: F25.9 Schizoaffective disorder, unspecified (principal); R45.851 Suicidal ideations; M41.9 Scoliosis, unspecified; G40.909 Epilepsy, unspecified, not intractable, without status epilepticus; E03.9 Hypothyroidism, unspecified; E87.6 Hypokalemia; F10.10 Alcohol abuse, uncomplicated; F32.9 Major depressive disorder, single episode, unspecified; F15.90 Other stimulant use, unspecified, uncomplicated
CPT/HCPCS: 80307; 83036; 84132; 84439; 84443; 90686; Q0162

== ENCOUNTER 2019-12-25 10:54 | Inpatient (IN) | payer MEDICAID ==
[~2019-12-25] VITALS: Ht 170.2 cm; Wt 70.3 kg
[~2019-12-25 10:54] MED LIST changes: -NAPR-1025 PO
[2019-12-25] MEDS ORDERED: HALOPERIDOL 5 MG TABLET PO PRN (12:30)
[2019-12-25 12:39] VITALS: BP 96/58
[2019-12-25] MEDS ORDERED: INFLUENZA VIRUS VACCINE QVS 2019-20 (3YR+)/PF 60 MCG/0.5 ML SYRINGE IM ONE (14:00)
[2019-12-25] MEDS: LevETIRAcetam 250 MG TABLET PO SCH (16:45)
[2019-12-25 17:09] VITALS: BP 101/60
[2019-12-25] MEDS: ZOLPIDEM TARTRATE 10 MG TABLET PO PRN (20:38)
[2019-12-26] MEDS ORDERED: INFLUENZA VIRUS VACCINE QVS 2019-20 (3YR+)/PF 60 MCG/0.5 ML SYRINGE IM ONE (02:15)
[2019-12-26 06:44] VITALS: BP 121/75
[2019-12-26] MEDS: LevETIRAcetam 250 MG TABLET PO SCH ×2 (08:26→17:44)
[2019-12-26 09:05] LABS: BASOPHILS % (AUTO) 0.5 % (0.0-2.0); EOSINOPHILS % (AUTO) 1.3 % (1.0-6.0); HEMATOCRIT 39.2 % (36-46); HEMOGLOBIN 13.3 g/dL (12.0-16.0); LYMPHOCYTES # (AUTO) 1.7 K/uL (1.0-4.8); LYMPHOCYTES % (AUTO) 21.6 % (22.0-44.0); MEAN CORPUSCULAR HEMOGLOBIN 30.7 pg (26.0-34.0); MEAN CORPUSCULAR VOLUME 90 fL (80-100); MONOCYTES # (AUTO) 0.6 K/uL (0.1-1.0); MONOCYTES % (AUTO) 7.2 % (2.0-9.0); NEUTROPHILS # (AUTO) 5.4 K/uL (1.8-7.7); NEUTROPHILS % (AUTO) 69.4 % (40.0-70.0); PLATELET COUNT (AUTO) 258 K/uL (150-450); RED BLOOD CELL COUNT(AUTO) 4.33 MIL/uL (4.00-5.20); RED CELL DISTRIBUTION WIDTH 12.7 % (11.5-14.5)
[2019-12-26 10:08] LABS: ALANINE AMINOTRANSFERASE 20 U/L (12-78); ALBUMIN 3.4 g/dL (3.4-5.0); ALKALINE PHOSPHATASE 67 U/L (46-116); ANION GAP 9 mmol/L (8-16); ASPARTATE AMINOTRANSFERASE 13 U/L (15-37); BILIRUBIN,TOTAL 0.3 mg/dL (0.1-1.0); CALCIUM, TOTAL 8.9 mg/dL (8.8-10.5); CARBON DIOXIDE 26 mmol/L (22-29); CHLORIDE 107 mmol/L (98-107); CHOLESTEROL 136 mg/dL (131-200); CREATININE 0.68 mg/dL (0.60-1.30); FREE T4 (FREE THYROXINE) 1.22 ng/dL (0.76-1.46); GLOMERULAR FILTR. RATE CALC > 60 mL/min (>60); GLUCOSE,RANDOM 85 mg/dL (70-110); HCG,QUANTITATIVE < 1 mIU/mL (0-6); HDL CHOLESTEROL 34 mg/dL (40-60); LDL CHOL (CALC.) 93 mg/dL (0-130); POTASSIUM 3.9 mmol/L (3.5-5.1); SODIUM SERUM 142 mmol/L (136-145); THYROID STIMULATING HORMONE 0.56 uIU/mL (0.36-3.74); TOTAL PROTEIN, SERUM 6.8 g/dL (6.4-8.2); TRIGLYCERIDES 46 mg/dL (15-150); UREA NITROGEN, BLOOD 15 mg/dL (7-18)
[2019-12-26] MEDS: GABAPENTIN 300 MG CAPSULE PO SCH ×2 (10:17→17:44)
[2019-12-26] MEDS ORDERED: NICOTINE 14 MG/24 HOUR PATCH TD PRN (13:30)
[2019-12-26] MEDS ORDERED: DOCUSATE SODIUM 100 MG CAPSULE PO PRN (13:30)
[2019-12-26] MEDS ORDERED: CloNIDine HCL 0.1 MG TABLET PO PRN (13:30)
[2019-12-26] MEDS ORDERED: LOPERAMIDE HCL 2 MG CAPSULE PO PRN (13:30)
[2019-12-26] MEDS ORDERED: MAGNESIUM HYDROXIDE SUSPENSION 30 ML UDCUP PO PRN (13:30)
[2019-12-26] MEDS ORDERED: PETROLATUM,WHITE 28 GM JELLY TP PRN (13:30)
[2019-12-26] MEDS ORDERED: IBUPROFEN 400 MG TABLET PO PRN (13:30)
[2019-12-26] MEDS ORDERED: MAG HYDROX/AL HYDROX/SIMETH ES 30 ML SUSPENSION UDCUP PO PRN (13:30)
[2019-12-26] MEDS ORDERED: ALBUTEROL SULFATE HFA 90 MCG/PUFF 8 GM INHALER IH PRN (13:30)
[2019-12-26] MEDS ORDERED: ACETAMINOPHEN 325 MG TABLET PO PRN (13:30)
[2019-12-26] MEDS ORDERED: LevETIRAcetam 250 MG TABLET PO SCH (17:00)
[2019-12-26 17:42] VITALS: BP 100/65
[2019-12-26] MEDS: LORazepam 2 MG TABLET PO PRN (20:38)
[2019-12-26] MEDS: ZOLPIDEM TARTRATE 10 MG TABLET PO PRN (20:38)
[2019-12-26] MEDS: GuaiFENesin/D-METHORPHAN [SUGAR-FREE] 200-20MG/10 ML SYRUP UDCUP PO PRN (20:38)
[2019-12-27 06:34] VITALS: BP 102/64
[2019-12-27 08:00] VITALS: BP 110/68
[2019-12-27] MEDS: LevETIRAcetam 250 MG TABLET PO SCH ×2 (08:43→17:08)
[2019-12-27] MEDS: GABAPENTIN 300 MG CAPSULE PO SCH ×2 (08:44→17:08)
[2019-12-27] MEDS: OLANZapine 10 MG TABLET PO SCH ×2 (11:57→17:08)
[2019-12-27] MEDS: ONDANSETRON HCL 4 MG TABLET PO PRN (21:13)
[2019-12-27] MEDS ORDERED: GABA-531 PO (23:00)
[2019-12-27] MEDS ORDERED: OLAN10TA3 PO (23:00)
[2019-12-28 04:09] VITALS: BP 102/60
[2019-12-28] MEDS: LevETIRAcetam 250 MG TABLET PO SCH ×2 (08:08→16:01)
[2019-12-28] MEDS: GABAPENTIN 300 MG CAPSULE PO SCH ×2 (08:09→16:01)
[2019-12-28] MEDS: OLANZapine 10 MG TABLET PO SCH ×2 (08:09→16:01)
[2019-12-28 08:30] VITALS: BP 112/68
[2019-12-28] MEDS: SERTRALINE HCL 50 MG TABLET PO SCH (10:21)
[2019-12-28] MEDS: ONDANSETRON HCL 4 MG TABLET PO PRN (16:27)
[2019-12-28 16:30] VITALS: BP 109/70
[2019-12-29 01:23] VITALS: BP 101/68
[2019-12-29] MEDS: OLANZapine 10 MG TABLET PO SCH (08:50)
[2019-12-29] MEDS: LevETIRAcetam 250 MG TABLET PO SCH ×2 (08:50→17:00)
[2019-12-29] MEDS: GABAPENTIN 300 MG CAPSULE PO SCH ×2 (08:50→17:00)
[2019-12-29] MEDS: SERTRALINE HCL 50 MG TABLET PO SCH (08:50)
[2019-12-29] MEDS: OLANZapine 7.5 MG TABLET PO SCH (17:00)
[2019-12-29 17:01] VITALS: BP 101/72
[2019-12-30 03:41] VITALS: BP 105/77
[2019-12-30] MEDS: GABAPENTIN 300 MG CAPSULE PO SCH ×2 (09:27→16:12)
[2019-12-30] MEDS: OLANZapine 7.5 MG TABLET PO SCH ×2 (09:28→16:12)
[2019-12-30] MEDS: LevETIRAcetam 250 MG TABLET PO SCH ×2 (09:28→16:13)
[2019-12-30] MEDS: SERTRALINE HCL 50 MG TABLET PO SCH (09:28)
[2019-12-30 14:21] VITALS: BP 110/81
[2019-12-30 16:18] VITALS: BP 118/72
[2019-12-30] MEDS: ZOLPIDEM TARTRATE 10 MG TABLET PO PRN (20:59)
[2019-12-30] MEDS: LORazepam 2 MG TABLET PO PRN (20:59)
[2019-12-31 04:35] VITALS: BP 112/81
[2019-12-31 08:00] VITALS: BP 108/70
[2019-12-31] MEDS: OLANZapine 7.5 MG TABLET PO SCH ×2 (08:45→17:00)
[2019-12-31] MEDS: GABAPENTIN 300 MG CAPSULE PO SCH ×2 (08:45→17:00)
[2019-12-31] MEDS: SERTRALINE HCL 50 MG TABLET PO SCH (08:45)
[2019-12-31] MEDS: LevETIRAcetam 250 MG TABLET PO SCH ×2 (08:46→17:00)
[2019-12-31 16:26] VITALS: BP 104/60
[2019-12-31] MEDS: ROPINIRole HCL 0.25 MG TABLET PO SCH (20:42)
[2019-12-31] MEDS: LORazepam 2 MG TABLET PO PRN (20:42)
[2019-12-31] MEDS: ZOLPIDEM TARTRATE 10 MG TABLET PO PRN (20:42)
[2019-12-31] MEDS: GuaiFENesin/D-METHORPHAN [SUGAR-FREE] 200-20MG/10 ML SYRUP UDCUP PO PRN (20:44)
[2020-01-01 05:10] VITALS: BP 101/67
[2020-01-01] MEDS: GABAPENTIN 300 MG CAPSULE PO SCH ×2 (08:53→16:41)
[2020-01-01] MEDS: SERTRALINE HCL 50 MG TABLET PO SCH (08:53)
[2020-01-01] MEDS: OLANZapine 7.5 MG TABLET PO SCH ×2 (08:53→16:41)
[2020-01-01] MEDS: LevETIRAcetam 250 MG TABLET PO SCH ×2 (08:53→16:41)
[2020-01-01 16:09] VITALS: BP 106/68
[2020-01-01] MEDS: LORazepam 2 MG TABLET PO PRN (20:28)
[2020-01-01] MEDS: ZOLPIDEM TARTRATE 10 MG TABLET PO PRN (20:28)
[2020-01-01] MEDS: ROPINIRole HCL 0.25 MG TABLET PO SCH (20:29)
[2020-01-02 04:57] VITALS: BP 112/62
[2020-01-02 08:00] VITALS: BP 108/80
[2020-01-02] MEDS: OLANZapine 7.5 MG TABLET PO SCH ×2 (08:27→16:49)
[2020-01-02] MEDS: SERTRALINE HCL 50 MG TABLET PO SCH (08:27)
[2020-01-02] MEDS: LevETIRAcetam 250 MG TABLET PO SCH ×2 (08:27→16:48)
[2020-01-02] MEDS: GABAPENTIN 300 MG CAPSULE PO SCH ×2 (08:27→16:48)
[2020-01-02 16:51] VITALS: BP 122/74
[2020-01-02] MEDS: ROPINIRole HCL 0.25 MG TABLET PO SCH (21:20)
[2020-01-03 02:16] VITALS: BP 120/78
[2020-01-03 08:26] VITALS: BP 100/60
[2020-01-03] MEDS: LevETIRAcetam 250 MG TABLET PO SCH (08:58)
[2020-01-03] MEDS: GABAPENTIN 300 MG CAPSULE PO SCH (08:58)
[2020-01-03] MEDS: SERTRALINE HCL 50 MG TABLET PO SCH (08:58)
[2020-01-03] MEDS: OLANZapine 7.5 MG TABLET PO SCH (08:59)
[2020-01-03] MEDS ORDERED: OLAN7.5T2 PO (13:50)
[2020-01-03] MEDS ORDERED: SERT100T12 PO (13:50)
[2020-01-03] MEDS ORDERED: ROPI2 PO (14:04)
== END 2020-01-03 15:05 | disposition home or self-care (01) | DRG 750 ==
LOC: B3A 12:52
PROVIDERS: ADMIT Psychiatry & Neurology Psychiatry; ATTEND Psychiatry & Neurology Psychiatry
DX: F20.0 Paranoid schizophrenia (principal); R45.851 Suicidal ideations; M41.9 Scoliosis, unspecified; G40.909 Epilepsy, unspecified, not intractable, without status epilepticus; E03.9 Hypothyroidism, unspecified; F10.10 Alcohol abuse, uncomplicated; Z91.5 Personal history of self-harm
CPT/HCPCS: 84439; 84443; Q0162

== ENCOUNTER 2022-09-21 20:15 | Inpatient (IN) | payer MEDICAID, OTHER ==
[~2022-09-21] VITALS: Ht 170.2 cm; Wt 67.8 kg
[~2022-09-21 20:15] MED LIST changes: -ARIP15TA2 PO; -BENZ1TAB10 PO; +GABA-1181 PO; +LEVE250T4 PO; -LEVE250T55 PO; +OLAN7.5T22 PO; +ROPI2TAB26 PO; +SERT-162 PO
[2022-09-21 22:27] LABS: BASOPHILS % (AUTO) 0.5 % (0.0-2.0); EOSINOPHILS % (AUTO) 2.2 % (1.0-6.0); HEMOGLOBIN 13.4 g/dL (12.0-16.0); LYMPHOCYTES # (AUTO) 2.2 K/uL (1.0-4.8); MEAN CORPUSCULAR HEMOGLOBIN 30.9 pg (26.0-34.0); MEAN CORPUSCULAR HGB CONC 33.6 G/dL (31.0-37.0); MEAN CORPUSCULAR VOLUME 92 fL (80-100); MONOCYTES # (AUTO) 0.8 K/uL (0.1-1.0); MONOCYTES % (AUTO) 10.2 % (2.0-9.0); NEUTROPHILS % (AUTO) 60.1 % (40.0-70.0); PLATELET COUNT (AUTO) 267 K/uL (150-450); RED BLOOD CELL COUNT(AUTO) 4.35 MIL/uL (4.00-5.20); RED CELL DISTRIBUTION WIDTH 13.3 % (11.5-14.5)
[2022-09-21 22:39] LABS: ANION GAP 6 mmol/L (8-16); CARBON DIOXIDE 30 mmol/L (22-29); CHLORIDE 105 mmol/L (98-107); CREATININE 0.83 mg/dL (0.60-1.30); GLUCOSE,RANDOM 98 mg/dL (70-110); POTASSIUM 3.8 mmol/L (3.5-5.1); SODIUM SERUM 141 mmol/L (136-145); UREA NITROGEN, BLOOD 17 mg/dL (7-18)
[2022-09-21 22:40] LABS: GLOMERULAR FILTR. RATE CALC > 60 mL/min (>60)
[2022-09-21 22:45] LABS: ALANINE AMINOTRANSFERASE 13 U/L (12-78); ALBUMIN 3.7 g/dL (3.4-5.0); ALKALINE PHOSPHATASE 65 U/L (46-116); ASPARTATE AMINOTRANSFERASE 12 U/L (15-37); BILIRUBIN,TOTAL 0.2 mg/dL (0.1-1.0); TOTAL PROTEIN, SERUM 7.3 g/dL (6.4-8.2)
[2022-09-22] MEDS: LORazepam 2 MG TABLET PO PRN (06:32)
[2022-09-22] MEDS: HALOPERIDOL 5 MG TABLET PO PRN (06:32)
[2022-09-22 06:57] LABS: APPEARANCE,URINE TURBID (CLEAR); BILIRUBIN,URINE NEGATIVE (NEGATIVE); GLUCOSE, URINE (UA) NEGATIVE (NEGATIVE); KETONES,URINE TRACE mg/dL (NEGATIVE); LEUKOCYTE ESTERASE ,URINE LARGE (NEGATIVE); NITRATE,URINE NEGATIVE (NEGATIVE); OCCULT BLOOD,URINE MODERATE (NEGATIVE); PH,URINE 6.5 (5.0-8.0); PROTEIN,URINE 30-70 mg/dL (NEGATIVE); SPECIFIC GRAVITIY, URINE 1.023 (1.003-1.030)
[2022-09-22 07:03] LABS: AMPHET/METH SCREEN,URINE POSITIVE (NEGATIVE); BARBITURATE SCREEN, URINE NEGATIVE (NEGATIVE); BENZODIAZEPINES SCREEN,URINE NEGATIVE (NEGATIVE); CANNABINOID SCREEN,URINE NEGATIVE (NEGATIVE); COCAINE SCREEN,URINE NEGATIVE (NEGATIVE); METHADONE SCREEN, URINE NEGATIVE (NEGATIVE); OPIATE SCREEN,URINE NEGATIVE (NEGATIVE)
[2022-09-22 07:04] LABS: PHENCYCLIDINE SCREEN,URINE NEGATIVE (NEGATIVE)
[2022-09-22 07:12] LABS: BACTERIA,URINE Many /HPF (None Seen); SQUAMOUS EPITHELIAL CELL,UR Many /LPF (None Seen); WBC,URINE 51-100 /HPF (0-5)
[2022-09-22 09:01] LABS: COVID AG,FIA SOURCE NASAL SWAB
[2022-09-22 10:16] VITALS: BP 121/64
[2022-09-22 20:25] VITALS: BP 102/58
[2022-09-23] MEDS: HALOPERIDOL 5 MG TABLET PO PRN ×2 (00:30→13:06)
[2022-09-23] MEDS: ZOLPIDEM TARTRATE 10 MG TABLET PO PRN (00:30)
[2022-09-23] MEDS ORDERED: ALBUTEROL SULFATE HFA 90 MCG/PUFF 8 GM INHALER IH PRN (07:15)
[2022-09-23] MEDS ORDERED: DOCUSATE SODIUM 100 MG CAPSULE PO PRN (07:15)
[2022-09-23] MEDS ORDERED: NICOTINE 14 MG/24 HOUR PATCH TD PRN (07:15)
[2022-09-23] MEDS ORDERED: GuaiFENesin/D-METHORPHAN [SUGAR-FREE] 200-20MG/10 ML SYRUP UDCUP PO PRN (07:15)
[2022-09-23] MEDS ORDERED: PETROLATUM,WHITE 28 GM JELLY TP PRN (07:15)
[2022-09-23] MEDS ORDERED: CloNIDine HCL 0.1 MG TABLET PO PRN (07:15)
[2022-09-23] MEDS ORDERED: MAG HYDROX/AL HYDROX/SIMETH ES 30 ML SUSPENSION UDCUP PO PRN (07:15)
[2022-09-23] MEDS ORDERED: ONDANSETRON HCL 4 MG TABLET PO PRN (07:15)
[2022-09-23] MEDS ORDERED: MAGNESIUM HYDROXIDE SUSPENSION 30 ML UDCUP PO PRN (07:15)
[2022-09-23] MEDS ORDERED: LOPERAMIDE HCL 2 MG CAPSULE PO PRN (07:15)
[2022-09-23 08:36] VITALS: BP 113/69
[2022-09-23] MEDS: LevETIRAcetam 250 MG TABLET PO SCH ×2 (09:00→16:47)
[2022-09-23] MEDS: OLANZapine 10 MG TABLET PO SCH ×2 (09:57→20:06)
[2022-09-23] MEDS: SERTRALINE HCL 100 MG TABLET PO SCH (09:57)
[2022-09-23] MEDS: GABAPENTIN 300 MG CAPSULE PO SCH ×2 (10:03→16:45)
[2022-09-23] MEDS: LORazepam 2 MG TABLET PO PRN (13:06)
[2022-09-23] MEDS: ROPINIRole HCL 0.25 MG TABLET PO SCH (20:07)
[2022-09-23 20:58] VITALS: BP 113/69
[2022-09-24] MEDS: GABAPENTIN 300 MG CAPSULE PO SCH ×2 (08:35→16:58)
[2022-09-24] MEDS: OLANZapine 10 MG TABLET PO SCH ×2 (08:35→20:06)
[2022-09-24] MEDS: LevETIRAcetam 250 MG TABLET PO SCH ×2 (08:35→16:58)
[2022-09-24] MEDS: SERTRALINE HCL 100 MG TABLET PO SCH (08:35)
[2022-09-24 08:57] VITALS: BP 118/52
[2022-09-24] MEDS: ROPINIRole HCL 0.25 MG TABLET PO SCH (20:06)
[2022-09-24 20:36] VITALS: BP 105/60
[2022-09-25 08:41] VITALS: BP 109/66
[2022-09-25] MEDS: OLANZapine 10 MG TABLET PO SCH ×2 (09:06→21:04)
[2022-09-25] MEDS: LevETIRAcetam 250 MG TABLET PO SCH ×2 (09:06→17:27)
[2022-09-25] MEDS: SERTRALINE HCL 100 MG TABLET PO SCH (09:06)
[2022-09-25] MEDS: GABAPENTIN 300 MG CAPSULE PO SCH ×2 (09:09→17:31)
[2022-09-25 20:26] VITALS: BP 105/60
[2022-09-25] MEDS: ROPINIRole HCL 0.25 MG TABLET PO SCH (21:05)
[2022-09-26 08:35] VITALS: BP 110/60
[2022-09-26] MEDS: LevETIRAcetam 250 MG TABLET PO SCH ×2 (09:49→16:52)
[2022-09-26] MEDS: GABAPENTIN 300 MG CAPSULE PO SCH ×2 (09:52→16:52)
[2022-09-26] MEDS: SERTRALINE HCL 100 MG TABLET PO SCH (09:52)
[2022-09-26] MEDS: OLANZapine 10 MG TABLET PO SCH ×2 (09:52→20:32)
[2022-09-26] MEDS: ROPINIRole HCL 0.25 MG TABLET PO SCH (20:32)
[2022-09-26 23:21] VITALS: BP 128/99
[2022-09-27 08:46] LABS: GLUCOMETER DEV NAME(LOC) POC.BV
[2022-09-27] MEDS: LevETIRAcetam 250 MG TABLET PO SCH ×2 (09:11→16:33)
[2022-09-27] MEDS: OLANZapine 10 MG TABLET PO SCH ×2 (09:11→20:13)
[2022-09-27] MEDS: GABAPENTIN 300 MG CAPSULE PO SCH ×2 (09:11→16:33)
[2022-09-27] MEDS: SERTRALINE HCL 100 MG TABLET PO SCH (09:11)
[2022-09-27 09:17] VITALS: BP 107/71
[2022-09-27 16:58] VITALS: BP 117/84
[2022-09-27 16:59] VITALS: BP 104/65
[2022-09-27] MEDS: ROPINIRole HCL 0.25 MG TABLET PO SCH (20:13)
[2022-09-27 20:30] VITALS: BP 109/69
[2022-09-28] MEDS: LevETIRAcetam 250 MG TABLET PO SCH ×2 (09:02→16:14)
[2022-09-28] MEDS: SERTRALINE HCL 100 MG TABLET PO SCH (09:02)
[2022-09-28 09:03] VITALS: BP 110/65
[2022-09-28] MEDS: MIDODRINE HCL 2.5 MG TABLET PO SCH ×2 (09:03→16:14)
[2022-09-28] MEDS: GABAPENTIN 300 MG CAPSULE PO SCH ×2 (09:03→16:14)
[2022-09-28] MEDS: OLANZapine 10 MG TABLET PO SCH ×2 (09:03→20:06)
[2022-09-28 11:21] LABS: GLUCOMETER DEV NAME(LOC) POC.BV
[2022-09-28] MEDS: ACETAMINOPHEN 325 MG TABLET PO PRN (14:47)
[2022-09-28] MEDS: ROPINIRole HCL 0.25 MG TABLET PO SCH (20:06)
[2022-09-28 20:58] VITALS: BP 109/64
[2022-09-29 08:18] VITALS: BP 124/73
[2022-09-29] MEDS: LevETIRAcetam 250 MG TABLET PO SCH ×2 (09:33→16:35)
[2022-09-29] MEDS: OLANZapine 10 MG TABLET PO SCH (09:33)
[2022-09-29] MEDS: GABAPENTIN 300 MG CAPSULE PO SCH ×2 (09:34→16:35)
[2022-09-29] MEDS: MIDODRINE HCL 2.5 MG TABLET PO SCH ×2 (09:34→16:35)
[2022-09-29] MEDS: SERTRALINE HCL 100 MG TABLET PO SCH (09:34)
[2022-09-29] MEDS: ACETAMINOPHEN 325 MG TABLET PO PRN ×2 (10:09→20:20)
[2022-09-29] MEDS: OLANZapine 7.5 MG TABLET PO SCH (20:19)
[2022-09-29] MEDS: ROPINIRole HCL 0.25 MG TABLET PO SCH (20:19)
[2022-09-29 20:27] VITALS: BP 108/76
[2022-09-30 08:34] VITALS: BP 107/62
[2022-09-30] MEDS: LevETIRAcetam 250 MG TABLET PO SCH ×2 (08:47→16:25)
[2022-09-30] MEDS: MIDODRINE HCL 2.5 MG TABLET PO SCH ×2 (08:47→16:25)
[2022-09-30] MEDS: SERTRALINE HCL 100 MG TABLET PO SCH (08:47)
[2022-09-30] MEDS: GABAPENTIN 300 MG CAPSULE PO SCH ×2 (08:48→16:25)
[2022-09-30] MEDS: OLANZapine 7.5 MG TABLET PO SCH ×2 (08:48→20:31)
[2022-09-30] MEDS: ACETAMINOPHEN 325 MG TABLET PO PRN (13:14)
[2022-09-30] MEDS: ROPINIRole HCL 0.25 MG TABLET PO SCH (20:32)
[2022-09-30 21:39] VITALS: BP 106/57
[2022-10-01 08:36] VITALS: BP 119/80
[2022-10-01] MEDS: MIDODRINE HCL 2.5 MG TABLET PO SCH ×2 (08:53→16:35)
[2022-10-01] MEDS: LevETIRAcetam 250 MG TABLET PO SCH ×2 (08:54→16:36)
[2022-10-01] MEDS: OLANZapine 7.5 MG TABLET PO SCH ×2 (08:54→20:33)
[2022-10-01] MEDS: GABAPENTIN 300 MG CAPSULE PO SCH ×2 (08:54→16:36)
[2022-10-01] MEDS: SERTRALINE HCL 100 MG TABLET PO SCH (08:54)
[2022-10-01] MEDS: IBUPROFEN 400 MG TABLET PO PRN (09:25)
[2022-10-01 16:35] VITALS: BP 126/69
[2022-10-01 20:05] VITALS: BP 122/70
[2022-10-01] MEDS: ROPINIRole HCL 0.25 MG TABLET PO SCH (20:33)
[2022-10-02 08:29] VITALS: BP 112/63
[2022-10-02] MEDS: GABAPENTIN 300 MG CAPSULE PO SCH ×2 (09:10→16:51)
[2022-10-02] MEDS: LevETIRAcetam 250 MG TABLET PO SCH ×2 (09:10→16:51)
[2022-10-02] MEDS: OLANZapine 7.5 MG TABLET PO SCH ×2 (09:10→20:31)
[2022-10-02] MEDS: SERTRALINE HCL 100 MG TABLET PO SCH (09:11)
[2022-10-02] MEDS: MIDODRINE HCL 2.5 MG TABLET PO SCH ×2 (09:11→16:51)
[2022-10-02 20:30] VITALS: BP 102/62
[2022-10-02] MEDS: ROPINIRole HCL 0.25 MG TABLET PO SCH (20:32)
[2022-10-03 08:35] VITALS: BP 114/58
[2022-10-03] MEDS: MIDODRINE HCL 2.5 MG TABLET PO SCH ×2 (08:37→16:50)
[2022-10-03] MEDS: GABAPENTIN 300 MG CAPSULE PO SCH ×2 (08:37→16:50)
[2022-10-03] MEDS: LevETIRAcetam 250 MG TABLET PO SCH ×2 (08:37→16:50)
[2022-10-03] MEDS: SERTRALINE HCL 100 MG TABLET PO SCH (08:37)
[2022-10-03] MEDS: OLANZapine 7.5 MG TABLET PO SCH ×2 (08:38→20:21)
[2022-10-03] MEDS: IBUPROFEN 400 MG TABLET PO PRN (17:52)
[2022-10-03 20:21] VITALS: BP 115/65
[2022-10-03] MEDS: ROPINIRole HCL 0.25 MG TABLET PO SCH (20:21)
[2022-10-04 01:26] LABS: GLUCOMETER DEV NAME(LOC) POC.BV
[2022-10-04 09:08] VITALS: BP 108/54
[2022-10-04] MEDS: GABAPENTIN 300 MG CAPSULE PO SCH ×2 (09:14→16:14)
[2022-10-04] MEDS: LevETIRAcetam 250 MG TABLET PO SCH ×2 (09:14→16:14)
[2022-10-04] MEDS: OLANZapine 7.5 MG TABLET PO SCH ×2 (09:15→20:30)
[2022-10-04] MEDS: MIDODRINE HCL 2.5 MG TABLET PO SCH ×2 (09:15→16:14)
[2022-10-04] MEDS: SERTRALINE HCL 100 MG TABLET PO SCH (09:15)
[2022-10-04] MEDS: ROPINIRole HCL 0.25 MG TABLET PO SCH (20:30)
[2022-10-04 23:02] VITALS: BP 108/67
[2022-10-05 08:37] VITALS: BP 124/71
[2022-10-05] MEDS: OLANZapine 7.5 MG TABLET PO SCH ×3 (08:58→20:43)
[2022-10-05] MEDS: SERTRALINE HCL 100 MG TABLET PO SCH (08:58)
[2022-10-05] MEDS: GABAPENTIN 300 MG CAPSULE PO SCH ×2 (08:58→16:37)
[2022-10-05] MEDS: MIDODRINE HCL 2.5 MG TABLET PO SCH ×2 (08:59→16:37)
[2022-10-05] MEDS: LevETIRAcetam 250 MG TABLET PO SCH ×2 (08:59→16:37)
[2022-10-05] MEDS: IBUPROFEN 400 MG TABLET PO PRN (16:26)
[2022-10-05 16:27] VITALS: BP 103/64
[2022-10-05] MEDS: ROPINIRole HCL 0.25 MG TABLET PO SCH (20:34)
[2022-10-05 20:52] VITALS: BP 106/67
[2022-10-06 08:52] VITALS: BP 109/64
[2022-10-06] MEDS: OLANZapine 7.5 MG TABLET PO SCH ×2 (09:00→20:32)
[2022-10-06] MEDS: GABAPENTIN 300 MG CAPSULE PO SCH ×2 (09:09→16:31)
[2022-10-06] MEDS: MIDODRINE HCL 2.5 MG TABLET PO SCH ×2 (09:09→16:32)
[2022-10-06] MEDS: SERTRALINE HCL 100 MG TABLET PO SCH (09:09)
[2022-10-06] MEDS: LevETIRAcetam 250 MG TABLET PO SCH ×2 (09:09→16:31)
[2022-10-06] MEDS: ROPINIRole HCL 0.25 MG TABLET PO SCH (20:32)
[2022-10-06 20:38] VITALS: BP 120/64
[2022-10-07 08:22] VITALS: BP 119/69
[2022-10-07] MEDS: OLANZapine 7.5 MG TABLET PO SCH ×2 (09:00→20:38)
[2022-10-07] MEDS: LevETIRAcetam 250 MG TABLET PO SCH ×2 (09:54→16:40)
[2022-10-07] MEDS: SERTRALINE HCL 100 MG TABLET PO SCH (09:54)
[2022-10-07] MEDS: GABAPENTIN 300 MG CAPSULE PO SCH ×2 (09:54→16:40)
[2022-10-07] MEDS: MIDODRINE HCL 2.5 MG TABLET PO SCH ×2 (09:55→16:40)
[2022-10-07] MEDS: ROPINIRole HCL 0.25 MG TABLET PO SCH (20:38)
[2022-10-07 20:49] VITALS: BP 105/71
[2022-10-08] MEDS: OLANZapine 7.5 MG TABLET PO SCH (08:55)
[2022-10-08] MEDS: MIDODRINE HCL 2.5 MG TABLET PO SCH ×2 (08:55→16:22)
[2022-10-08] MEDS: SERTRALINE HCL 100 MG TABLET PO SCH (08:56)
[2022-10-08] MEDS: LevETIRAcetam 250 MG TABLET PO SCH ×2 (08:56→16:22)
[2022-10-08] MEDS: GABAPENTIN 300 MG CAPSULE PO SCH ×2 (08:56→16:22)
[2022-10-08 09:47] VITALS: BP 113/65
[2022-10-08 15:53] VITALS: BP 113/60
[2022-10-08] MEDS: LORazepam 2 MG TABLET PO PRN (15:55)
[2022-10-08 20:12] VITALS: BP 116/60
[2022-10-08] MEDS: ROPINIRole HCL 0.25 MG TABLET PO SCH (20:35)
[2022-10-09] MEDS: GABAPENTIN 300 MG CAPSULE PO SCH ×2 (08:31→16:32)
[2022-10-09] MEDS: SERTRALINE HCL 100 MG TABLET PO SCH (08:31)
[2022-10-09] MEDS: LevETIRAcetam 250 MG TABLET PO SCH ×2 (08:32→16:32)
[2022-10-09] MEDS: MIDODRINE HCL 2.5 MG TABLET PO SCH ×2 (08:32→16:31)
[2022-10-09 08:44] VITALS: BP 119/66
[2022-10-09] MEDS: LORazepam 2 MG TABLET PO PRN (18:28)
[2022-10-09 20:35] VITALS: BP 110/69
[2022-10-09] MEDS: ROPINIRole HCL 0.25 MG TABLET PO SCH (20:38)
[2022-10-10 08:32] VITALS: BP 112/66
[2022-10-10] MEDS: GABAPENTIN 300 MG CAPSULE PO SCH ×2 (09:11→17:19)
[2022-10-10] MEDS: LevETIRAcetam 250 MG TABLET PO SCH ×2 (09:11→17:18)
[2022-10-10] MEDS: SERTRALINE HCL 100 MG TABLET PO SCH (09:11)
[2022-10-10] MEDS: MIDODRINE HCL 2.5 MG TABLET PO SCH ×2 (09:11→17:19)
[2022-10-10] MEDS: ROPINIRole HCL 0.25 MG TABLET PO SCH (21:26)
[2022-10-10 21:30] VITALS: BP 111/72
[2022-10-11 07:56] LABS: GLUCOMETER DEV NAME(LOC) POC.BV
[2022-10-11 08:36] VITALS: BP 120/64
[2022-10-11] MEDS: LevETIRAcetam 250 MG TABLET PO SCH ×2 (09:12→16:39)
[2022-10-11] MEDS: MIDODRINE HCL 2.5 MG TABLET PO SCH ×2 (09:12→16:39)
[2022-10-11] MEDS: GABAPENTIN 300 MG CAPSULE PO SCH ×2 (09:12→16:39)
[2022-10-11] MEDS: SERTRALINE HCL 100 MG TABLET PO SCH (09:12)
[2022-10-11] MEDS: LORazepam 2 MG TABLET PO PRN (14:34)
[2022-10-11 16:53] VITALS: BP 109/70
[2022-10-11 20:04] VITALS: BP 110/73
[2022-10-11] MEDS: ROPINIRole HCL 0.25 MG TABLET PO SCH (20:42)
[2022-10-12 08:25] VITALS: BP 118/73
[2022-10-12] MEDS: LevETIRAcetam 250 MG TABLET PO SCH ×2 (09:20→16:32)
[2022-10-12] MEDS: GABAPENTIN 300 MG CAPSULE PO SCH ×2 (09:20→16:32)
[2022-10-12] MEDS: MIDODRINE HCL 2.5 MG TABLET PO SCH ×2 (09:20→16:32)
[2022-10-12] MEDS: SERTRALINE HCL 100 MG TABLET PO SCH (09:20)
[2022-10-12] MEDS: BENZOCAINE/MENTHOL LOZENGE PO PRN (18:49)
[2022-10-12] MEDS: ROPINIRole HCL 0.25 MG TABLET PO SCH (20:32)
[2022-10-12 21:02] VITALS: BP 121/73
[2022-10-13 01:27] VITALS: BP 128/62
[2022-10-13] MEDS: ACETAMINOPHEN 325 MG TABLET PO PRN (01:30)
[2022-10-13] MEDS: ZOLPIDEM TARTRATE 10 MG TABLET PO PRN (01:46)
[2022-10-13 07:02] VITALS: BP 114/64
[2022-10-13] MEDS: IBUPROFEN 400 MG TABLET PO PRN ×2 (07:04→15:49)
[2022-10-13] MEDS: SERTRALINE HCL 100 MG TABLET PO SCH (08:42)
[2022-10-13] MEDS: MIDODRINE HCL 2.5 MG TABLET PO SCH ×2 (08:42→16:38)
[2022-10-13] MEDS: GABAPENTIN 300 MG CAPSULE PO SCH ×2 (08:42→16:38)
[2022-10-13] MEDS: LevETIRAcetam 250 MG TABLET PO SCH ×2 (08:42→16:38)
[2022-10-13 08:50] VITALS: BP 100/74
[2022-10-13] MEDS: BENZTROPINE MESYLATE 1 MG TABLET PO SCH ×2 (09:38→16:38)
[2022-10-13 12:56] LABS: GLUCOMETER DEV NAME(LOC) POC.BV
[2022-10-13] MEDS: BENZOCAINE/MENTHOL LOZENGE PO PRN (13:24)
[2022-10-13 15:53] VITALS: BP 106/60
[2022-10-13 17:46] LABS: GLUCOMETER DEV NAME(LOC) POC.BV
[2022-10-13 21:27] LABS: COVID AG,FIA SOURCE NASAL SWAB
[2022-10-21] MEDS ORDERED: ARIPiprazole ER SUSPENSION 400 MG PRE-FILLED DUAL CHAMBER SYRINGE IM SCH (09:00)
== END 2022-10-13 22:45 | disposition home or self-care (01) | DRG 750 ==
LOC: EMS 20:18 → B2S 09-22 07:40
PROVIDERS: ADMIT Psychiatry & Neurology Child & Adolescent Psychiatry; ATTEND Psychiatry & Neurology Child & Adolescent Psychiatry
DX: F25.0 Schizoaffective disorder, bipolar type (principal); U07.1 COVID-19; G40.909 Epilepsy, unspecified, not intractable, without status epilepticus; R45.851 Suicidal ideations; E03.9 Hypothyroidism, unspecified; F15.10 Other stimulant abuse, uncomplicated; F31.9 Bipolar disorder, unspecified; F43.10 Post-traumatic stress disorder, unspecified; G25.81 Restless legs syndrome; F17.210 Nicotine dependence, cigarettes, uncomplicated; M41.9 Scoliosis, unspecified; Z79.01 Long term (current) use of anticoagulants
CPT/HCPCS: 80053; 81001; 85025; 87086; 87186; 99285; G0480

== ENCOUNTER 2022-10-13 20:18 | Inpatient (IN) | payer MEDICAID ==
[~2022-10-13] VITALS: Ht 170.2 cm; Wt 72.0 kg
[2022-10-13 21:08] LABS: BASOPHILS % (AUTO) 0.3 % (0.0-2.0); EOSINOPHILS % (AUTO) 1.1 % (1.0-6.0); HEMOGLOBIN 13.9 g/dL (12.0-16.0); LYMPHOCYTES # (AUTO) 0.6 K/uL (1.0-4.8); LYMPHOCYTES % (AUTO) 8.8 % (22.0-44.0); MEAN CORPUSCULAR HGB CONC 34.7 G/dL (31.0-37.0); MEAN CORPUSCULAR VOLUME 92 fL (80-100); NEUTROPHILS # (AUTO) 5.3 K/uL (1.8-7.7); NEUTROPHILS % (AUTO) 75.8 % (40.0-70.0); PLATELET COUNT (AUTO) 262 K/uL (150-450); RED BLOOD CELL COUNT(AUTO) 4.34 MIL/uL (4.00-5.20); RED CELL DISTRIBUTION WIDTH 13.1 % (11.5-14.5)
[2022-10-13 21:14] LABS: ANION GAP 4 mmol/L (8-16); CALCIUM, TOTAL 9.1 mg/dL (8.8-10.5); CARBON DIOXIDE 29 mmol/L (22-29); CHLORIDE 101 mmol/L (98-107); CREATININE 0.85 mg/dL (0.60-1.30); GLUCOSE,RANDOM 107 mg/dL (70-110); POTASSIUM 3.6 mmol/L (3.5-5.1); SODIUM SERUM 134 mmol/L (136-145); UREA NITROGEN, BLOOD 11 mg/dL (7-18)
[2022-10-13] MEDS ORDERED: *CLINICAL-LEVOFLOXACIN IVPB DOSING CLINICAL ONE (21:15)
[2022-10-13] MEDS ORDERED: ONDANSETRON HCL 4 MG/2 ML VIAL IVP PRN (21:15)
[2022-10-13] MEDS ORDERED: MAGNESIUM HYDROXIDE SUSPENSION 30 ML UDCUP PO PRN (21:15)
[2022-10-13] MEDS ORDERED: BISACODYL 10 MG RECTAL RECTAL SUPPOSITORY PR PRN (21:15)
[2022-10-13] MEDS ORDERED: MORPHINE SULFATE 2 MG/ML SYRINGE IVP PRN (21:15)
[2022-10-13 21:19] LABS: ALANINE AMINOTRANSFERASE 27 U/L (12-78); ALBUMIN 4.1 g/dL (3.4-5.0); ALKALINE PHOSPHATASE 85 U/L (46-116); ASPARTATE AMINOTRANSFERASE 21 U/L (15-37); BILIRUBIN,TOTAL 0.2 mg/dL (0.1-1.0); TOTAL PROTEIN, SERUM 8.2 g/dL (6.4-8.2)
[2022-10-13 21:20] LABS: GLOMERULAR FILTR. RATE CALC > 60 mL/min (>60)
[2022-10-13 21:49] LABS: INFLUENZA TYPE A NEGATIVE FOR TYPE A (NEGATIVE); INFLUENZA TYPE B NEGATIVE FOR TYPE B (NEGATIVE)
[2022-10-13] MEDS: LEVOFLOXACIN 750 MG/D5% WATER 150 ML IV SCH (22:13)
[2022-10-13] MEDS: ACETAMINOPHEN 325 MG TABLET PO PRN (22:13)
[2022-10-13] MEDS ORDERED: SODIUM CHLORIDE 0.9% 500 ML IV ONE (22:51)
[2022-10-13 22:58] VITALS: BP 117/68
[2022-10-13] MEDS: HYDROCODONE/ACETAMINOPHEN 5-325 MG TABLET PO PRN (23:38)
[2022-10-13] MEDS: HEPARIN SODIUM,PORCINE 5,000 UNITS/ML VIAL SQ SCH (23:38)
[2022-10-14 04:20] LABS: APPEARANCE,URINE CLEAR (CLEAR); BILIRUBIN,URINE NEGATIVE (NEGATIVE); GLUCOSE, URINE (UA) NEGATIVE (NEGATIVE); KETONES,URINE NEGATIVE (NEGATIVE); LEUKOCYTE ESTERASE ,URINE NEGATIVE (NEGATIVE); NITRATE,URINE NEGATIVE (NEGATIVE); OCCULT BLOOD,URINE MODERATE (NEGATIVE); PROTEIN,URINE NEGATIVE (NEGATIVE); SPECIFIC GRAVITIY, URINE 1.008 (1.003-1.030); UROBILINOGEN,URINE <=1.0 mg/dL (<=1.0)
[2022-10-14 04:29] LABS: BACTERIA,URINE None Seen /HPF (None Seen); SQUAMOUS EPITHELIAL CELL,UR Few /LPF (None Seen); WBC,URINE 0-2 /HPF (0-5)
[2022-10-14 05:25] VITALS: BP 101/59
[2022-10-14 05:42] LABS: BASOPHILS % (AUTO) 0.7 % (0.0-2.0); EOSINOPHILS % (AUTO) 1.6 % (1.0-6.0); HEMATOCRIT 35.8 % (36-46); HEMOGLOBIN 12.8 g/dL (12.0-16.0); LYMPHOCYTES # (AUTO) 0.7 K/uL (1.0-4.8); LYMPHOCYTES % (AUTO) 15.9 % (22.0-44.0); MEAN CORPUSCULAR HEMOGLOBIN 32.5 pg (26.0-34.0); MEAN CORPUSCULAR HGB CONC 35.8 G/dL (31.0-37.0); MEAN CORPUSCULAR VOLUME 91 fL (80-100); MONOCYTES # (AUTO) 0.9 K/uL (0.1-1.0); MONOCYTES % (AUTO) 19.7 % (2.0-9.0); NEUTROPHILS # (AUTO) 2.8 K/uL (1.8-7.7); NEUTROPHILS % (AUTO) 62.1 % (40.0-70.0); PLATELET COUNT (AUTO) 225 K/uL (150-450); RED BLOOD CELL COUNT(AUTO) 3.94 MIL/uL (4.00-5.20); RED CELL DISTRIBUTION WIDTH 12.9 % (11.5-14.5)
[2022-10-14 05:47] LABS: ANION GAP 5 mmol/L (8-16); CALCIUM, TOTAL 8.5 mg/dL (8.8-10.5); CARBON DIOXIDE 29 mmol/L (22-29); CHLORIDE 104 mmol/L (98-107); CREATININE 0.86 mg/dL (0.60-1.30); GLUCOSE,RANDOM 93 mg/dL (70-110); POTASSIUM 3.8 mmol/L (3.5-5.1); SODIUM SERUM 138 mmol/L (136-145); UREA NITROGEN, BLOOD 10 mg/dL (7-18)
[2022-10-14 05:53] LABS: GLOMERULAR FILTR. RATE CALC > 60 mL/min (>60)
[2022-10-14 07:18] VITALS: BP 112/68
[2022-10-14] MEDS: LevETIRAcetam 250 MG TABLET PO SCH ×2 (08:46→21:08)
[2022-10-14] MEDS: OLANZapine 7.5 MG TABLET PO SCH ×3 (08:46→21:07)
[2022-10-14] MEDS: DOCUSATE SODIUM 100 MG CAPSULE PO SCH ×3 (08:46→21:00)
[2022-10-14] MEDS: PANTOPRAZOLE SODIUM 40 MG DR TABLET PO SCH (08:47)
[2022-10-14] MEDS: DEXAMETHASONE 4 MG TABLET PO SCH (08:47)
[2022-10-14] MEDS: HEPARIN SODIUM,PORCINE 5,000 UNITS/ML VIAL SQ SCH ×3 (08:47→23:34)
[2022-10-14] MEDS: HYDROCODONE/ACETAMINOPHEN 5-325 MG TABLET PO PRN ×3 (08:47→21:19)
[2022-10-14] MEDS: SERTRALINE HCL 100 MG TABLET PO SCH (08:55)
[2022-10-14] MEDS ORDERED: GABAPENTIN 300 MG CAPSULE PO SCH (09:00)
[2022-10-14 15:26] VITALS: BP 98/62
[2022-10-14] MEDS: GuaiFENesin/D-METHORPHAN/PHENYLEPH 5 ML LIQUID ORAL.SYG PO PRN (16:55)
[2022-10-14 20:30] VITALS: BP 96/52
[2022-10-14] MEDS: LEVOFLOXACIN 750 MG/D5% WATER 150 ML IV SCH (21:07)
[2022-10-14] MEDS: ROPINIRole HCL 0.25 MG TABLET PO SCH (21:07)
[2022-10-14] MEDS: BENZTROPINE MESYLATE 1 MG TABLET PO SCH (21:07)
[2022-10-14] MEDS: GABAPENTIN 100 MG CAPSULE PO SCH (21:08)
[2022-10-14] MEDS: ACETAMINOPHEN 325 MG TABLET PO PRN (23:34)
[2022-10-15 05:00] VITALS: BP 96/57
[2022-10-15 07:18] VITALS: BP 101/63
[2022-10-15 08:00] LABS: BASOPHILS % (AUTO) 0.3 % (0.0-2.0); EOSINOPHILS % (AUTO) 0.2 % (1.0-6.0); HEMATOCRIT 37.7 % (36-46); HEMOGLOBIN 13.4 g/dL (12.0-16.0); LYMPHOCYTES # (AUTO) 2.2 K/uL (1.0-4.8); LYMPHOCYTES % (AUTO) 53.3 % (22.0-44.0); MEAN CORPUSCULAR HEMOGLOBIN 32.4 pg (26.0-34.0); MEAN CORPUSCULAR HGB CONC 35.5 G/dL (31.0-37.0); MEAN CORPUSCULAR VOLUME 91 fL (80-100); MONOCYTES # (AUTO) 0.7 K/uL (0.1-1.0); MONOCYTES % (AUTO) 16.4 % (2.0-9.0); NEUTROPHILS # (AUTO) 1.2 K/uL (1.8-7.7); NEUTROPHILS % (AUTO) 29.8 % (40.0-70.0); PLATELET COUNT (AUTO) 232 K/uL (150-450); RED BLOOD CELL COUNT(AUTO) 4.13 MIL/uL (4.00-5.20); RED CELL DISTRIBUTION WIDTH 13.2 % (11.5-14.5)
[2022-10-15 08:11] LABS: ANION GAP 5 mmol/L (8-16); CALCIUM, TOTAL 8.6 mg/dL (8.8-10.5); CARBON DIOXIDE 31 mmol/L (22-29); CHLORIDE 105 mmol/L (98-107); CREATININE 0.93 mg/dL (0.60-1.30); GLUCOSE,RANDOM 99 mg/dL (70-110); POTASSIUM 3.5 mmol/L (3.5-5.1); SODIUM SERUM 141 mmol/L (136-145); UREA NITROGEN, BLOOD 11 mg/dL (7-18)
[2022-10-15 08:12] LABS: GLOMERULAR FILTR. RATE CALC > 60 mL/min (>60)
[2022-10-15] MEDS: DOCUSATE SODIUM 100 MG CAPSULE PO SCH ×2 (09:00→21:51)
[2022-10-15] MEDS: LevETIRAcetam 250 MG TABLET PO SCH ×2 (09:06→21:50)
[2022-10-15] MEDS: SERTRALINE HCL 100 MG TABLET PO SCH (09:06)
[2022-10-15] MEDS: BENZTROPINE MESYLATE 1 MG TABLET PO SCH ×2 (09:06→21:51)
[2022-10-15] MEDS: PANTOPRAZOLE SODIUM 40 MG DR TABLET PO SCH (09:06)
[2022-10-15] MEDS: OLANZapine 7.5 MG TABLET PO SCH ×2 (09:06→21:51)
[2022-10-15] MEDS: GABAPENTIN 100 MG CAPSULE PO SCH ×2 (09:07→21:50)
[2022-10-15] MEDS: DEXAMETHASONE 4 MG TABLET PO SCH (09:07)
[2022-10-15] MEDS: HEPARIN SODIUM,PORCINE 5,000 UNITS/ML VIAL SQ SCH ×3 (09:16→17:20)
[2022-10-15 15:13] VITALS: BP 91/50
[2022-10-15] MEDS: GuaiFENesin/D-METHORPHAN/PHENYLEPH 5 ML LIQUID ORAL.SYG PO PRN (17:20)
[2022-10-15 19:45] VITALS: BP 98/54
[2022-10-15] MEDS: LEVOFLOXACIN 750 MG/D5% WATER 150 ML IV SCH (21:49)
[2022-10-15] MEDS: ROPINIRole HCL 0.25 MG TABLET PO SCH (21:51)
[2022-10-15] MEDS: ZOLPIDEM TARTRATE 5 MG TABLET PO PRN (21:57)
[2022-10-16] MEDS: HEPARIN SODIUM,PORCINE 5,000 UNITS/ML VIAL SQ SCH ×3 (00:46→16:00)
[2022-10-16] MEDS: GuaiFENesin/D-METHORPHAN/PHENYLEPH 5 ML LIQUID ORAL.SYG PO PRN ×3 (00:59→21:25)
[2022-10-16 05:15] VITALS: BP 98/65
[2022-10-16 06:53] LABS: BASOPHILS % (AUTO) 0.2 % (0.0-2.0); EOSINOPHILS % (AUTO) 0.1 % (1.0-6.0); HEMOGLOBIN 13.2 g/dL (12.0-16.0); LYMPHOCYTES # (AUTO) 2.9 K/uL (1.0-4.8); LYMPHOCYTES % (AUTO) 50.8 % (22.0-44.0); MEAN CORPUSCULAR HEMOGLOBIN 31.4 pg (26.0-34.0); MEAN CORPUSCULAR HGB CONC 34.7 G/dL (31.0-37.0); MEAN CORPUSCULAR VOLUME 91 fL (80-100); MONOCYTES # (AUTO) 0.6 K/uL (0.1-1.0); MONOCYTES % (AUTO) 10.2 % (2.0-9.0); NEUTROPHILS # (AUTO) 2.2 K/uL (1.8-7.7); NEUTROPHILS % (AUTO) 38.7 % (40.0-70.0); PLATELET COUNT (AUTO) 250 K/uL (150-450); RED CELL DISTRIBUTION WIDTH 13.4 % (11.5-14.5)
[2022-10-16 07:07] LABS: ANION GAP 7 mmol/L (8-16); CALCIUM, TOTAL 8.7 mg/dL (8.8-10.5); CARBON DIOXIDE 27 mmol/L (22-29); CHLORIDE 103 mmol/L (98-107); GLUCOSE,RANDOM 126 mg/dL (70-110); POTASSIUM 3.5 mmol/L (3.5-5.1); SODIUM SERUM 137 mmol/L (136-145); UREA NITROGEN, BLOOD 11 mg/dL (7-18)
[2022-10-16 07:09] LABS: GLOMERULAR FILTR. RATE CALC > 60 mL/min (>60)
[2022-10-16 07:12] VITALS: BP 97/62
[2022-10-16] MEDS: OLANZapine 7.5 MG TABLET PO SCH ×3 (09:00→21:24)
[2022-10-16] MEDS: DOCUSATE SODIUM 100 MG CAPSULE PO SCH ×3 (09:00→21:25)
[2022-10-16] MEDS: LevETIRAcetam 250 MG TABLET PO SCH ×2 (09:12→21:24)
[2022-10-16] MEDS: PANTOPRAZOLE SODIUM 40 MG DR TABLET PO SCH (09:12)
[2022-10-16] MEDS: GABAPENTIN 100 MG CAPSULE PO SCH ×2 (09:13→21:24)
[2022-10-16] MEDS: BENZTROPINE MESYLATE 1 MG TABLET PO SCH ×2 (09:13→21:24)
[2022-10-16] MEDS: DEXAMETHASONE 4 MG TABLET PO SCH (09:13)
[2022-10-16] MEDS: SERTRALINE HCL 100 MG TABLET PO SCH (09:14)
[2022-10-16 15:30] VITALS: BP 99/64
[2022-10-16 20:15] VITALS: BP 100/53
[2022-10-16] MEDS: ROPINIRole HCL 0.25 MG TABLET PO SCH (21:24)
[2022-10-16] MEDS: ZOLPIDEM TARTRATE 5 MG TABLET PO PRN (21:24)
[2022-10-16] MEDS: HYDROCODONE/ACETAMINOPHEN 5-325 MG TABLET PO PRN (21:25)
[2022-10-16] MEDS: LEVOFLOXACIN 750 MG/D5% WATER 150 ML IV SCH (21:30)
[2022-10-17] VITALS: BP 99/58
[2022-10-17 04:21] VITALS: BP 101/55
[2022-10-17 05:15] VITALS: BP 101/57
[2022-10-17 07:15] VITALS: BP 102/69
[2022-10-17] MEDS: PANTOPRAZOLE SODIUM 40 MG DR TABLET PO SCH (08:56)
[2022-10-17] MEDS: HEPARIN SODIUM,PORCINE 5,000 UNITS/ML VIAL SQ SCH ×4 (08:56→23:26)
[2022-10-17] MEDS: DOCUSATE SODIUM 100 MG CAPSULE PO SCH ×2 (08:57→20:06)
[2022-10-17] MEDS: DEXAMETHASONE 4 MG TABLET PO SCH (08:57)
[2022-10-17] MEDS: BENZTROPINE MESYLATE 1 MG TABLET PO SCH ×2 (08:57→20:02)
[2022-10-17] MEDS: GABAPENTIN 100 MG CAPSULE PO SCH ×2 (08:59→20:02)
[2022-10-17] MEDS: LevETIRAcetam 250 MG TABLET PO SCH ×2 (08:59→20:01)
[2022-10-17] MEDS: SERTRALINE HCL 100 MG TABLET PO SCH (09:00)
[2022-10-17] MEDS: OLANZapine 7.5 MG TABLET PO SCH ×2 (09:00→20:07)
[2022-10-17 16:09] LABS: COVID AG,FIA SOURCE NASOPHARYNGEAL
[2022-10-17] MEDS: ROPINIRole HCL 0.25 MG TABLET PO SCH (20:02)
[2022-10-17] MEDS: GuaiFENesin/D-METHORPHAN/PHENYLEPH 5 ML LIQUID ORAL.SYG PO PRN (20:02)
[2022-10-17 20:05] VITALS: BP 97/54
[2022-10-17] MEDS: ZOLPIDEM TARTRATE 5 MG TABLET PO PRN (22:23)
[2022-10-17] MEDS: LEVOFLOXACIN 750 MG/D5% WATER 150 ML IV SCH (22:23)
[2022-10-18 05:45] VITALS: BP 100/54
[2022-10-18 07:47] VITALS: BP 98/56
[2022-10-18] MEDS: DOCUSATE SODIUM 100 MG CAPSULE PO SCH ×3 (09:00→19:52)
[2022-10-18] MEDS: OLANZapine 7.5 MG TABLET PO SCH ×3 (09:00→19:52)
[2022-10-18] MEDS: SERTRALINE HCL 100 MG TABLET PO SCH (09:04)
[2022-10-18] MEDS: DEXAMETHASONE 4 MG TABLET PO SCH (09:05)
[2022-10-18] MEDS: PANTOPRAZOLE SODIUM 40 MG DR TABLET PO SCH (09:05)
[2022-10-18] MEDS: GABAPENTIN 100 MG CAPSULE PO SCH ×2 (09:09→19:48)
[2022-10-18] MEDS: LevETIRAcetam 250 MG TABLET PO SCH ×2 (09:09→19:48)
[2022-10-18] MEDS: HEPARIN SODIUM,PORCINE 5,000 UNITS/ML VIAL SQ SCH ×3 (09:10→23:19)
[2022-10-18] MEDS: BENZTROPINE MESYLATE 1 MG TABLET PO SCH ×2 (09:10→19:49)
[2022-10-18 16:00] VITALS: BP 99/56
[2022-10-18] MEDS: ROPINIRole HCL 0.25 MG TABLET PO SCH (19:48)
[2022-10-18] MEDS: GuaiFENesin/D-METHORPHAN/PHENYLEPH 5 ML LIQUID ORAL.SYG PO PRN (19:49)
[2022-10-18 20:10] VITALS: BP 94/54
[2022-10-18] MEDS: ZOLPIDEM TARTRATE 5 MG TABLET PO PRN (21:26)
[2022-10-18] MEDS: LEVOFLOXACIN 750 MG/D5% WATER 150 ML IV SCH (21:27)
[2022-10-19 04:50] VITALS: BP 101/62
[2022-10-19 08:00] VITALS: BP 100/69
[2022-10-19] MEDS: HEPARIN SODIUM,PORCINE 5,000 UNITS/ML VIAL SQ SCH ×2 (08:00→15:28)
[2022-10-19] MEDS: BENZTROPINE MESYLATE 1 MG TABLET PO SCH ×2 (08:41→20:48)
[2022-10-19] MEDS: SERTRALINE HCL 100 MG TABLET PO SCH (08:41)
[2022-10-19] MEDS: DEXAMETHASONE 4 MG TABLET PO SCH (08:41)
[2022-10-19] MEDS: PANTOPRAZOLE SODIUM 40 MG DR TABLET PO SCH (08:42)
[2022-10-19] MEDS: OLANZapine 7.5 MG TABLET PO SCH ×2 (08:44→20:51)
[2022-10-19] MEDS: LevETIRAcetam 250 MG TABLET PO SCH ×2 (08:45→20:52)
[2022-10-19] MEDS: GABAPENTIN 100 MG CAPSULE PO SCH ×2 (08:45→20:52)
[2022-10-19] MEDS: DOCUSATE SODIUM 100 MG CAPSULE PO SCH ×3 (08:46→21:00)
[2022-10-19 15:46] VITALS: BP 91/58
[2022-10-19 18:14] LABS: COVID AG,FIA SOURCE NASAL SWAB
[2022-10-19 20:15] VITALS: BP 102/64
[2022-10-19] MEDS: ROPINIRole HCL 0.25 MG TABLET PO SCH ×2 (20:48→21:00)
[2022-10-19] MEDS: HYDROCODONE/ACETAMINOPHEN 5-325 MG TABLET PO PRN (20:57)
[2022-10-19] MEDS: LEVOFLOXACIN 750 MG/D5% WATER 150 ML IV SCH (22:35)
[2022-10-20 05:30] VITALS: BP 99/66
[2022-10-20 08:00] VITALS: BP 109/82
[2022-10-20] MEDS: HEPARIN SODIUM,PORCINE 5,000 UNITS/ML VIAL SQ SCH ×4 (08:00→23:20)
[2022-10-20] MEDS: DOCUSATE SODIUM 100 MG CAPSULE PO SCH ×2 (09:00→21:00)
[2022-10-20] MEDS: OLANZapine 7.5 MG TABLET PO SCH ×2 (09:00→21:00)
[2022-10-20] MEDS: BENZTROPINE MESYLATE 1 MG TABLET PO SCH ×2 (09:04→20:42)
[2022-10-20] MEDS: DEXAMETHASONE 4 MG TABLET PO SCH (09:05)
[2022-10-20] MEDS: LevETIRAcetam 250 MG TABLET PO SCH ×2 (09:08→20:42)
[2022-10-20] MEDS: SERTRALINE HCL 100 MG TABLET PO SCH (09:08)
[2022-10-20] MEDS: GABAPENTIN 100 MG CAPSULE PO SCH ×2 (09:09→20:41)
[2022-10-20] MEDS: PANTOPRAZOLE SODIUM 40 MG DR TABLET PO SCH (09:10)
[2022-10-20 16:03] VITALS: BP 106/46
[2022-10-20 20:30] VITALS: BP 94/58
[2022-10-20] MEDS: ACETAMINOPHEN 325 MG TABLET PO PRN (20:41)
[2022-10-20] MEDS: ROPINIRole HCL 0.25 MG TABLET PO SCH (21:00)
[2022-10-20] MEDS: LEVOFLOXACIN 750 MG/D5% WATER 150 ML IV SCH (21:42)
[2022-10-21 04:45] VITALS: BP 93/48
[2022-10-21] MEDS: HEPARIN SODIUM,PORCINE 5,000 UNITS/ML VIAL SQ SCH ×3 (08:00→22:41)
[2022-10-21] MEDS: OLANZapine 7.5 MG TABLET PO SCH ×2 (09:00→20:15)
[2022-10-21] MEDS: DOCUSATE SODIUM 100 MG CAPSULE PO SCH ×2 (09:00→20:14)
[2022-10-21] MEDS: BENZTROPINE MESYLATE 1 MG TABLET PO SCH ×2 (09:05→20:13)
[2022-10-21] MEDS: PANTOPRAZOLE SODIUM 40 MG DR TABLET PO SCH (09:05)
[2022-10-21] MEDS: DEXAMETHASONE 4 MG TABLET PO SCH (09:07)
[2022-10-21] MEDS: SERTRALINE HCL 100 MG TABLET PO SCH (09:07)
[2022-10-21] MEDS: LevETIRAcetam 250 MG TABLET PO SCH ×2 (09:10→20:13)
[2022-10-21] MEDS: GABAPENTIN 100 MG CAPSULE PO SCH ×2 (09:10→20:13)
[2022-10-21 15:47] VITALS: BP 100/58
[2022-10-21] MEDS: ROPINIRole HCL 0.25 MG TABLET PO SCH (20:14)
[2022-10-21 20:16] VITALS: BP 94/55
[2022-10-21] MEDS: ACETAMINOPHEN 325 MG TABLET PO PRN (20:16)
[2022-10-21] MEDS: LEVOFLOXACIN 750 MG/D5% WATER 150 ML IV SCH (22:15)
[2022-10-22 05:00] VITALS: BP 95/65
[2022-10-22 07:30] VITALS: BP 92/49
[2022-10-22] MEDS: GABAPENTIN 100 MG CAPSULE PO SCH ×2 (08:28→20:04)
[2022-10-22] MEDS: LevETIRAcetam 250 MG TABLET PO SCH ×2 (08:28→20:04)
[2022-10-22] MEDS: BENZTROPINE MESYLATE 1 MG TABLET PO SCH ×2 (08:28→20:04)
[2022-10-22] MEDS: PANTOPRAZOLE SODIUM 40 MG DR TABLET PO SCH (08:28)
[2022-10-22] MEDS: HEPARIN SODIUM,PORCINE 5,000 UNITS/ML VIAL SQ SCH ×3 (08:28→22:36)
[2022-10-22] MEDS: DEXAMETHASONE 4 MG TABLET PO SCH (08:29)
[2022-10-22] MEDS: DOCUSATE SODIUM 100 MG CAPSULE PO SCH ×2 (08:30→20:04)
[2022-10-22] MEDS: OLANZapine 7.5 MG TABLET PO SCH ×2 (08:30→20:07)
[2022-10-22] MEDS: SERTRALINE HCL 100 MG TABLET PO SCH (08:31)
[2022-10-22 15:35] VITALS: BP 97/62
[2022-10-22 17:56] LABS: COVID AG,FIA SOURCE NASOPHARYNGEAL
[2022-10-22] MEDS: ZOLPIDEM TARTRATE 5 MG TABLET PO PRN (20:04)
[2022-10-22 20:05] VITALS: BP 94/62
[2022-10-22] MEDS: ROPINIRole HCL 0.25 MG TABLET PO SCH (20:07)
[2022-10-22] MEDS: LEVOFLOXACIN 750 MG/D5% WATER 150 ML IV SCH (22:20)
[2022-10-23 05:51] VITALS: BP 96/54
[2022-10-23] MEDS: HEPARIN SODIUM,PORCINE 5,000 UNITS/ML VIAL SQ SCH ×3 (08:00→23:29)
[2022-10-23 08:09] VITALS: BP 99/56
[2022-10-23] MEDS: PANTOPRAZOLE SODIUM 40 MG DR TABLET PO SCH (08:47)
[2022-10-23] MEDS: LevETIRAcetam 250 MG TABLET PO SCH ×2 (08:47→22:24)
[2022-10-23] MEDS: SERTRALINE HCL 100 MG TABLET PO SCH (08:47)
[2022-10-23] MEDS: BENZTROPINE MESYLATE 1 MG TABLET PO SCH ×2 (08:48→22:23)
[2022-10-23] MEDS: GABAPENTIN 100 MG CAPSULE PO SCH ×2 (08:48→22:24)
[2022-10-23] MEDS: DEXAMETHASONE 4 MG TABLET PO SCH (08:48)
[2022-10-23] MEDS: OLANZapine 7.5 MG TABLET PO SCH ×2 (08:53→21:00)
[2022-10-23] MEDS: DOCUSATE SODIUM 100 MG CAPSULE PO SCH ×2 (08:53→21:00)
[2022-10-23 16:02] VITALS: BP 96/51
[2022-10-23 20:30] VITALS: BP 97/51
[2022-10-23] MEDS: LEVOFLOXACIN 750 MG/D5% WATER 150 ML IV SCH (22:00)
[2022-10-23] MEDS: ROPINIRole HCL 0.25 MG TABLET PO SCH (22:27)
[2022-10-23] MEDS: ACETAMINOPHEN 325 MG TABLET PO PRN (22:28)
[2022-10-24 05:45] VITALS: BP 96/54
[2022-10-24 07:51] VITALS: BP 90/55
[2022-10-24] MEDS: HEPARIN SODIUM,PORCINE 5,000 UNITS/ML VIAL SQ SCH ×3 (08:00→23:04)
[2022-10-24] MEDS: DOCUSATE SODIUM 100 MG CAPSULE PO SCH ×2 (09:00→21:00)
[2022-10-24] MEDS: OLANZapine 7.5 MG TABLET PO SCH ×2 (09:00→21:00)
[2022-10-24] MEDS: PANTOPRAZOLE SODIUM 40 MG DR TABLET PO SCH (09:13)
[2022-10-24] MEDS: SERTRALINE HCL 100 MG TABLET PO SCH (09:13)
[2022-10-24] MEDS: DEXAMETHASONE 4 MG TABLET PO SCH (09:13)
[2022-10-24] MEDS: BENZTROPINE MESYLATE 1 MG TABLET PO SCH ×2 (09:13→21:09)
[2022-10-24] MEDS: GABAPENTIN 100 MG CAPSULE PO SCH ×2 (09:13→21:10)
[2022-10-24] MEDS: LevETIRAcetam 250 MG TABLET PO SCH ×2 (09:14→21:09)
[2022-10-24] MEDS: ACETAMINOPHEN 325 MG TABLET PO PRN ×2 (09:16→15:52)
[2022-10-24 15:25] VITALS: BP 107/71
[2022-10-24 20:26] VITALS: BP 97/65
[2022-10-24] MEDS: ZOLPIDEM TARTRATE 5 MG TABLET PO PRN (21:10)
[2022-10-24] MEDS: ROPINIRole HCL 0.25 MG TABLET PO SCH (21:10)
[2022-10-25 05:30] VITALS: BP 96/53
[2022-10-25 08:16] VITALS: BP 101/67
[2022-10-25] MEDS: OLANZapine 7.5 MG TABLET PO SCH ×3 (09:00→20:07)
[2022-10-25] MEDS: DOCUSATE SODIUM 100 MG CAPSULE PO SCH ×3 (09:00→21:00)
[2022-10-25] MEDS: HEPARIN SODIUM,PORCINE 5,000 UNITS/ML VIAL SQ SCH ×3 (09:38→23:14)
[2022-10-25] MEDS: LevETIRAcetam 250 MG TABLET PO SCH ×2 (09:39→20:06)
[2022-10-25] MEDS: PANTOPRAZOLE SODIUM 40 MG DR TABLET PO SCH (09:40)
[2022-10-25] MEDS: GABAPENTIN 100 MG CAPSULE PO SCH ×2 (09:40→20:03)
[2022-10-25] MEDS: SERTRALINE HCL 100 MG TABLET PO SCH (09:40)
[2022-10-25] MEDS: BENZTROPINE MESYLATE 1 MG TABLET PO SCH ×2 (09:40→20:03)
[2022-10-25 15:25] VITALS: BP 102/58
[2022-10-25] MEDS: ZOLPIDEM TARTRATE 5 MG TABLET PO PRN (20:02)
[2022-10-25] MEDS: ROPINIRole HCL 0.25 MG TABLET PO SCH (20:03)
[2022-10-25 20:29] VITALS: BP 92/54
[2022-10-26 05:11] VITALS: BP 92/52
[2022-10-26 07:25] VITALS: BP 89/50
[2022-10-26 07:35] VITALS: BP 88/48
[2022-10-26] MEDS: GABAPENTIN 100 MG CAPSULE PO SCH ×2 (08:35→20:49)
[2022-10-26] MEDS: PANTOPRAZOLE SODIUM 40 MG DR TABLET PO SCH (08:35)
[2022-10-26] MEDS: LevETIRAcetam 250 MG TABLET PO SCH ×2 (08:35→20:50)
[2022-10-26] MEDS: OLANZapine 7.5 MG TABLET PO SCH ×2 (08:35→20:52)
[2022-10-26] MEDS: HEPARIN SODIUM,PORCINE 5,000 UNITS/ML VIAL SQ SCH ×2 (08:35→15:10)
[2022-10-26] MEDS: BENZTROPINE MESYLATE 1 MG TABLET PO SCH ×2 (08:36→20:50)
[2022-10-26] MEDS: SERTRALINE HCL 100 MG TABLET PO SCH (08:36)
[2022-10-26] MEDS: DOCUSATE SODIUM 100 MG CAPSULE PO SCH ×2 (08:44→20:52)
[2022-10-26] MEDS: ACETAMINOPHEN 325 MG TABLET PO PRN ×2 (08:45→18:11)
[2022-10-26 11:30] LABS: COVID AG,FIA SOURCE NASAL SWAB
[2022-10-26 15:18] VITALS: BP 88/48
[2022-10-26 15:31] VITALS: BP 89/50
[2022-10-26 19:40] VITALS: BP 98/62
[2022-10-26] MEDS: ROPINIRole HCL 0.25 MG TABLET PO SCH (20:50)
[2022-10-26] MEDS: ZOLPIDEM TARTRATE 5 MG TABLET PO PRN (20:50)
[2022-10-27 04:20] VITALS: BP 92/52
[2022-10-27 07:56] VITALS: BP 99/58
[2022-10-27] MEDS: DOCUSATE SODIUM 100 MG CAPSULE PO SCH ×2 (09:00→20:06)
[2022-10-27] MEDS: OLANZapine 7.5 MG TABLET PO SCH ×2 (09:00→20:06)
[2022-10-27] MEDS: BENZTROPINE MESYLATE 1 MG TABLET PO SCH ×2 (09:27→20:08)
[2022-10-27] MEDS: GABAPENTIN 100 MG CAPSULE PO SCH ×2 (09:27→20:09)
[2022-10-27] MEDS: LevETIRAcetam 250 MG TABLET PO SCH ×2 (09:27→20:09)
[2022-10-27] MEDS: PANTOPRAZOLE SODIUM 40 MG DR TABLET PO SCH (09:27)
[2022-10-27] MEDS: SERTRALINE HCL 100 MG TABLET PO SCH (09:27)
[2022-10-27] MEDS: HEPARIN SODIUM,PORCINE 5,000 UNITS/ML VIAL SQ SCH ×4 (09:28→23:05)
[2022-10-27 15:29] VITALS: BP 102/58
[2022-10-27 19:45] VITALS: BP 92/55
[2022-10-27] MEDS: ROPINIRole HCL 0.25 MG TABLET PO SCH (20:08)
[2022-10-28 05:24] VITALS: BP 105/55
[2022-10-28 07:00] VITALS: BP 102/59
[2022-10-28] MEDS: DOCUSATE SODIUM 100 MG CAPSULE PO SCH ×3 (09:00→20:02)
[2022-10-28] MEDS: OLANZapine 7.5 MG TABLET PO SCH ×3 (09:00→20:02)
[2022-10-28] MEDS: HEPARIN SODIUM,PORCINE 5,000 UNITS/ML VIAL SQ SCH ×3 (09:07→23:07)
[2022-10-28] MEDS: GABAPENTIN 100 MG CAPSULE PO SCH ×2 (09:07→20:03)
[2022-10-28] MEDS: SERTRALINE HCL 100 MG TABLET PO SCH (09:08)
[2022-10-28] MEDS: PANTOPRAZOLE SODIUM 40 MG DR TABLET PO SCH (09:08)
[2022-10-28] MEDS: LevETIRAcetam 250 MG TABLET PO SCH ×2 (09:08→20:03)
[2022-10-28] MEDS: BENZTROPINE MESYLATE 1 MG TABLET PO SCH ×2 (09:09→20:03)
[2022-10-28] MEDS: ROPINIRole HCL 0.25 MG TABLET PO SCH (20:03)
[2022-10-28] MEDS: ZOLPIDEM TARTRATE 5 MG TABLET PO PRN (20:07)
[2022-10-28 20:42] VITALS: BP 100/61
[2022-10-29 04:26] VITALS: BP 92/42
[2022-10-29 08:28] VITALS: BP 105/62
[2022-10-29] MEDS: LevETIRAcetam 250 MG TABLET PO SCH ×2 (08:42→20:14)
[2022-10-29] MEDS: BENZTROPINE MESYLATE 1 MG TABLET PO SCH ×2 (08:42→20:16)
[2022-10-29] MEDS: GABAPENTIN 100 MG CAPSULE PO SCH ×2 (08:42→20:15)
[2022-10-29] MEDS: PANTOPRAZOLE SODIUM 40 MG DR TABLET PO SCH (08:43)
[2022-10-29] MEDS: HEPARIN SODIUM,PORCINE 5,000 UNITS/ML VIAL SQ SCH ×2 (08:43→16:17)
[2022-10-29] MEDS: DOCUSATE SODIUM 100 MG CAPSULE PO SCH ×2 (08:43→21:00)
[2022-10-29] MEDS: OLANZapine 7.5 MG TABLET PO SCH ×2 (08:43→21:00)
[2022-10-29] MEDS: SERTRALINE HCL 100 MG TABLET PO SCH (08:43)
[2022-10-29 15:50] VITALS: BP 103/53
[2022-10-29] MEDS: ROPINIRole HCL 0.25 MG TABLET PO SCH (20:16)
[2022-10-29 20:20] VITALS: BP 126/73
[2022-10-29] MEDS: ZOLPIDEM TARTRATE 5 MG TABLET PO PRN (20:21)
[2022-10-30] MEDS: HEPARIN SODIUM,PORCINE 5,000 UNITS/ML VIAL SQ SCH ×3 (00:36→16:02)
[2022-10-30 06:00] VITALS: BP 101/75
[2022-10-30 07:54] VITALS: BP 104/61
[2022-10-30] MEDS: DOCUSATE SODIUM 100 MG CAPSULE PO SCH ×3 (07:56→20:11)
[2022-10-30] MEDS: BENZTROPINE MESYLATE 1 MG TABLET PO SCH ×2 (07:56→20:10)
[2022-10-30] MEDS: LevETIRAcetam 250 MG TABLET PO SCH ×2 (07:57→20:09)
[2022-10-30] MEDS: PANTOPRAZOLE SODIUM 40 MG DR TABLET PO SCH (07:57)
[2022-10-30] MEDS: SERTRALINE HCL 100 MG TABLET PO SCH (07:57)
[2022-10-30] MEDS: GABAPENTIN 100 MG CAPSULE PO SCH ×2 (08:00→20:09)
[2022-10-30] MEDS: OLANZapine 7.5 MG TABLET PO SCH ×2 (08:31→20:12)
[2022-10-30 15:14] VITALS: BP 122/79
[2022-10-30] MEDS: ROPINIRole HCL 0.25 MG TABLET PO SCH (20:08)
[2022-10-30 21:00] VITALS: BP 114/71
[2022-10-31] MEDS: HEPARIN SODIUM,PORCINE 5,000 UNITS/ML VIAL SQ SCH ×3 (00:47→16:00)
[2022-10-31 05:48] VITALS: BP 100/67
[2022-10-31] MEDS: HYDROCODONE/ACETAMINOPHEN 5-325 MG TABLET PO PRN (05:52)
[2022-10-31 07:24] VITALS: BP 112/65
[2022-10-31] MEDS: LevETIRAcetam 250 MG TABLET PO SCH (08:29)
[2022-10-31] MEDS: GABAPENTIN 100 MG CAPSULE PO SCH (08:29)
[2022-10-31] MEDS: BENZTROPINE MESYLATE 1 MG TABLET PO SCH (08:30)
[2022-10-31] MEDS: PANTOPRAZOLE SODIUM 40 MG DR TABLET PO SCH (08:30)
[2022-10-31] MEDS: SERTRALINE HCL 100 MG TABLET PO SCH (08:30)
[2022-10-31] MEDS: OLANZapine 7.5 MG TABLET PO SCH (08:33)
[2022-10-31] MEDS: DOCUSATE SODIUM 100 MG CAPSULE PO SCH (08:33)
[2022-10-31] MEDS ORDERED: ROPI0.2535 PO (13:10)
[2022-10-31] MEDS ORDERED: LEVE250T4 PO (13:10)
[2022-10-31] MEDS ORDERED: SERT-440 PO (13:10)
[2022-10-31] MEDS ORDERED: GABA-1181 PO (13:10)
[2022-10-31] MEDS ORDERED: OLAN7.5T22 PO (13:10)
[2022-10-31] MEDS ORDERED: BENZ1TAB96 PO (13:10)
[2022-10-31 19:35] VITALS: BP 114/62
== END 2022-10-31 13:35 | disposition home or self-care (01) | DRG 137 ==
LOC: EMS 20:18 → 6N 20:30
PROVIDERS: ADMIT Internal Medicine; ATTEND Internal Medicine
DX: U07.1 COVID-19 (principal); J12.82 Pneumonia due to coronavirus disease 2019; F25.0 Schizoaffective disorder, bipolar type; G40.909 Epilepsy, unspecified, not intractable, without status epilepticus; F41.9 Anxiety disorder, unspecified; F15.10 Other stimulant abuse, uncomplicated
CPT/HCPCS: 71045; 80048; 80053; 81001; 83605; 84703; 85025; 87081; 87804; 99285; J1644; J1956; J2270; J7040; J8540; 36415-L1; 36415-TC

== ENCOUNTER 2022-11-17 19:33 | Inpatient (IN) | payer MEDICAID ==
[~2022-11-17] VITALS: Ht 170.2 cm; Wt 73.0 kg
[~2022-11-17 19:33] MED LIST changes: +BENZ1TAB96 PO; +ROPI0.2535 PO; -ROPI2TAB26 PO; -SERT-162 PO; +SERT-440 PO
[2022-11-17] MEDS ORDERED: INFLUENZA VIRUS VACCINE QVS 2022-23 (6MO+)/PF 60 MCG/0.5 ML SYRINGE IM. ONE (20:15)
[2022-11-17 20:31] VITALS: BP 109/69
[2022-11-17] MEDS: ZOLPIDEM TARTRATE 10 MG TABLET PO PRN (20:55)
[2022-11-17] MEDS: LORazepam 2 MG TABLET PO PRN (20:55)
[2022-11-18] MEDS ORDERED: MAGNESIUM HYDROXIDE SUSPENSION 30 ML UDCUP PO PRN (05:15)
[2022-11-18] MEDS ORDERED: DOCUSATE SODIUM 100 MG CAPSULE PO PRN (05:15)
[2022-11-18] MEDS ORDERED: IBUPROFEN 600 MG TABLET PO PRN (05:15)
[2022-11-18] MEDS ORDERED: ONDANSETRON HCL 4 MG TABLET PO PRN (05:15)
[2022-11-18] MEDS ORDERED: PETROLATUM,WHITE 28 GM JELLY TP PRN (05:15)
[2022-11-18] MEDS ORDERED: ALBUTEROL SULFATE HFA 90 MCG/PUFF 8 GM INHALER IH PRN (05:15)
[2022-11-18] MEDS ORDERED: ACETAMINOPHEN 325 MG TABLET PO PRN (05:15)
[2022-11-18] MEDS ORDERED: BACITRACIN 28 GM OINTMENT TP PRN (05:15)
[2022-11-18] MEDS ORDERED: MAG HYDROX/AL HYDROX/SIMETH ES 30 ML SUSPENSION UDCUP PO PRN (05:15)
[2022-11-18] MEDS ORDERED: LOPERAMIDE HCL 2 MG CAPSULE PO PRN (05:15)
[2022-11-18] MEDS ORDERED: OMEPRAZOLE 20 MG CAPSULE PO PRN (05:15)
[2022-11-18] MEDS ORDERED: CloNIDine HCL 0.1 MG TABLET PO PRN (05:15)
[2022-11-18 07:27] LABS: BASOPHILS % (AUTO) 0.5 % (0.0-2.0); HEMATOCRIT 40.2 % (36-46); HEMOGLOBIN 13.8 g/dL (12.0-16.0); LYMPHOCYTES # (AUTO) 1.5 K/uL (1.0-4.8); LYMPHOCYTES % (AUTO) 24.5 % (22.0-44.0); MEAN CORPUSCULAR HGB CONC 34.3 G/dL (31.0-37.0); MEAN CORPUSCULAR VOLUME 93 fL (80-100); MONOCYTES # (AUTO) 0.8 K/uL (0.1-1.0); MONOCYTES % (AUTO) 13.1 % (2.0-9.0); NEUTROPHILS # (AUTO) 3.5 K/uL (1.8-7.7); NEUTROPHILS % (AUTO) 58.9 % (40.0-70.0); PLATELET COUNT (AUTO) 250 K/uL (150-450); RED BLOOD CELL COUNT(AUTO) 4.31 MIL/uL (4.00-5.20); RED CELL DISTRIBUTION WIDTH 12.9 % (11.5-14.5)
[2022-11-18 08:11] VITALS: BP 108/62
[2022-11-18] MEDS: GABAPENTIN 300 MG CAPSULE PO SCH ×2 (08:31→16:55)
[2022-11-18] MEDS: LevETIRAcetam 250 MG TABLET PO SCH ×2 (08:32→16:55)
[2022-11-18 08:37] LABS: HEMOGLOBIN A1C 5.2 % (3.8-5.6)
[2022-11-18 08:48] LABS: ALANINE AMINOTRANSFERASE 20 U/L (12-78); ALBUMIN 3.4 g/dL (3.4-5.0); ALKALINE PHOSPHATASE 67 U/L (46-116); ANION GAP 6 mmol/L (8-16); ASPARTATE AMINOTRANSFERASE 12 U/L (15-37); BILIRUBIN,TOTAL 0.1 mg/dL (0.1-1.0); CALCIUM, TOTAL 8.6 mg/dL (8.8-10.5); CARBON DIOXIDE 29 mmol/L (22-29); CHLORIDE 108 mmol/L (98-107); CHOL/HDL RATIO 3.8 (3.9-5.7); CHOLESTEROL 173 mg/dL (131-200); CREATININE 0.85 mg/dL (0.60-1.30); GLOMERULAR FILTR. RATE CALC > 60 mL/min (>60); GLUCOSE,RANDOM 92 mg/dL (70-110); HCG,QUANTITATIVE < 1 mIU/mL (0-6); HDL CHOLESTEROL 46 mg/dL (40-60); LDL CHOL (CALC.) 108 mg/dL (0-130); POTASSIUM 4.3 mmol/L (3.5-5.1); SODIUM SERUM 143 mmol/L (136-145); TOTAL PROTEIN, SERUM 7.1 g/dL (6.4-8.2); TRIGLYCERIDES 93 mg/dL (15-150); UREA NITROGEN, BLOOD 16 mg/dL (7-18)
[2022-11-18 10:07] LABS: THYROID STIMULATING HORMONE 0.69 uIU/mL (0.36-3.74)
[2022-11-18] MEDS: BENZOCAINE/MENTHOL LOZENGE PO PRN (17:54)
[2022-11-18] MEDS: GuaiFENesin [SUGAR-FREE] 200 MG/10 ML SOLUTION UDCUP PO PRN (18:01)
[2022-11-18] MEDS: LORazepam 2 MG TABLET PO PRN (18:48)
[2022-11-18] MEDS: HALOPERIDOL 5 MG TABLET PO PRN (18:48)
[2022-11-18 20:03] VITALS: BP 109/73
[2022-11-18] MEDS: ROPINIRole HCL 0.25 MG TABLET PO SCH (20:15)
[2022-11-18] MEDS: RisperiDONE 3 MG TABLET PO SCH (20:19)
[2022-11-18] MEDS: LITHIUM CARBONATE 300 MG CAPSULE PO SCH (20:19)
[2022-11-18] MEDS: DIVALPROEX SODIUM 500 MG DR TABLET PO SCH (20:19)
[2022-11-18] MEDS: ZOLPIDEM TARTRATE 10 MG TABLET PO PRN (20:26)
[2022-11-19 08:28] VITALS: BP 107/60
[2022-11-19] MEDS: GABAPENTIN 300 MG CAPSULE PO SCH ×2 (09:03→16:16)
[2022-11-19] MEDS: DIVALPROEX SODIUM 500 MG DR TABLET PO SCH ×2 (09:03→20:15)
[2022-11-19] MEDS: RisperiDONE 3 MG TABLET PO SCH ×2 (09:03→20:13)
[2022-11-19] MEDS: LITHIUM CARBONATE 300 MG CAPSULE PO SCH ×2 (09:04→20:17)
[2022-11-19] MEDS: LevETIRAcetam 250 MG TABLET PO SCH ×2 (09:04→16:16)
[2022-11-19] MEDS: BENZOCAINE/MENTHOL LOZENGE PO PRN (16:22)
[2022-11-19] MEDS: GuaiFENesin [SUGAR-FREE] 200 MG/10 ML SOLUTION UDCUP PO PRN (17:44)
[2022-11-19 20:03] VITALS: BP 108/60
[2022-11-19] MEDS: ROPINIRole HCL 0.25 MG TABLET PO SCH (20:13)
[2022-11-19] MEDS: ZOLPIDEM TARTRATE 10 MG TABLET PO PRN (20:17)
[2022-11-20] MEDS: HALOPERIDOL 5 MG TABLET PO PRN ×2 (01:36→16:19)
[2022-11-20] MEDS: LORazepam 2 MG TABLET PO PRN (01:36)
[2022-11-20] MEDS: LITHIUM CARBONATE 300 MG CAPSULE PO SCH ×2 (08:16→20:11)
[2022-11-20] MEDS: DIVALPROEX SODIUM 500 MG DR TABLET PO SCH ×2 (08:16→20:11)
[2022-11-20] MEDS: LevETIRAcetam 250 MG TABLET PO SCH ×2 (08:17→16:15)
[2022-11-20] MEDS: RisperiDONE 3 MG TABLET PO SCH ×2 (08:18→20:11)
[2022-11-20 08:19] VITALS: BP 108/65
[2022-11-20] MEDS: GuaiFENesin [SUGAR-FREE] 200 MG/10 ML SOLUTION UDCUP PO PRN (08:32)
[2022-11-20] MEDS: GABAPENTIN 300 MG CAPSULE PO SCH ×2 (08:32→16:15)
[2022-11-20] MEDS ORDERED: DIVA-112 PO (13:53)
[2022-11-20] MEDS ORDERED: RISP3TAB35 PO (13:53)
[2022-11-20] MEDS ORDERED: LITH300C3 PO (13:53)
[2022-11-20 20:37] VITALS: BP 106/63
[2022-11-20] MEDS: ROPINIRole HCL 0.25 MG TABLET PO SCH (22:03)
[2022-11-21 08:32] VITALS: BP 119/84
[2022-11-21] MEDS: DIVALPROEX SODIUM 500 MG DR TABLET PO SCH ×2 (08:47→20:03)
[2022-11-21] MEDS: LevETIRAcetam 250 MG TABLET PO SCH ×2 (08:47→16:41)
[2022-11-21] MEDS: GABAPENTIN 300 MG CAPSULE PO SCH ×2 (08:47→16:41)
[2022-11-21] MEDS: LITHIUM CARBONATE 300 MG CAPSULE PO SCH ×2 (08:47→20:03)
[2022-11-21] MEDS: RisperiDONE 3 MG TABLET PO SCH ×2 (08:47→20:03)
[2022-11-21] MEDS: ROPINIRole HCL 0.25 MG TABLET PO SCH (20:03)
[2022-11-21 20:29] VITALS: BP 103/63
[2022-11-22] MEDS: HALOPERIDOL 5 MG TABLET PO PRN (05:12)
[2022-11-22] MEDS: LORazepam 2 MG TABLET PO PRN ×2 (05:12→14:03)
[2022-11-22] MEDS: BENZOCAINE/MENTHOL LOZENGE PO PRN (05:12)
[2022-11-22 08:14] VITALS: BP 119/88
[2022-11-22] MEDS: DIVALPROEX SODIUM 500 MG DR TABLET PO SCH ×2 (08:20→20:40)
[2022-11-22] MEDS: GABAPENTIN 300 MG CAPSULE PO SCH ×2 (08:20→16:53)
[2022-11-22] MEDS: LITHIUM CARBONATE 300 MG CAPSULE PO SCH ×2 (08:20→20:40)
[2022-11-22] MEDS: RisperiDONE 3 MG TABLET PO SCH ×2 (08:20→20:43)
[2022-11-22] MEDS: LevETIRAcetam 250 MG TABLET PO SCH ×2 (08:21→16:53)
[2022-11-22 20:12] VITALS: BP 105/81
[2022-11-22] MEDS: ROPINIRole HCL 0.25 MG TABLET PO SCH (20:40)
[2022-11-23 06:01] LABS: GLUCOMETER DEV NAME(LOC) POC.BV
[2022-11-23 08:23] VITALS: BP 106/62
[2022-11-23] MEDS: LITHIUM CARBONATE 300 MG CAPSULE PO SCH ×2 (08:46→21:10)
[2022-11-23] MEDS: DIVALPROEX SODIUM 500 MG DR TABLET PO SCH ×2 (08:46→21:10)
[2022-11-23] MEDS: LevETIRAcetam 250 MG TABLET PO SCH ×2 (08:46→17:29)
[2022-11-23] MEDS: GABAPENTIN 300 MG CAPSULE PO SCH ×2 (08:46→17:29)
[2022-11-23] MEDS: RisperiDONE 3 MG TABLET PO SCH ×2 (08:46→21:10)
[2022-11-23] MEDS: LORazepam 2 MG TABLET PO PRN ×2 (08:47→17:29)
[2022-11-23] MEDS: GuaiFENesin [SUGAR-FREE] 200 MG/10 ML SOLUTION UDCUP PO PRN (17:29)
[2022-11-23 20:41] VITALS: BP 103/69
[2022-11-23] MEDS: ROPINIRole HCL 0.25 MG TABLET PO SCH (21:10)
[2022-11-24 07:19] LABS: LITHIUM 0.44 mmol/L (0.60-1.20)
[2022-11-24 08:16] VITALS: BP 116/69
[2022-11-24] MEDS: RisperiDONE 3 MG TABLET PO SCH ×2 (08:26→20:34)
[2022-11-24] MEDS: GABAPENTIN 300 MG CAPSULE PO SCH ×2 (08:26→16:19)
[2022-11-24] MEDS: LITHIUM CARBONATE 300 MG CAPSULE PO SCH ×2 (08:26→20:34)
[2022-11-24] MEDS: DIVALPROEX SODIUM 500 MG DR TABLET PO SCH ×2 (08:26→20:33)
[2022-11-24] MEDS: LevETIRAcetam 250 MG TABLET PO SCH ×2 (08:27→16:19)
[2022-11-24] MEDS: LORazepam 2 MG TABLET PO PRN (16:19)
[2022-11-24 20:23] VITALS: BP 108/62
[2022-11-24] MEDS: ROPINIRole HCL 0.25 MG TABLET PO SCH (20:33)
[2022-11-25 08:23] VITALS: BP 112/66
[2022-11-25] MEDS: GABAPENTIN 300 MG CAPSULE PO SCH ×2 (08:56→17:46)
[2022-11-25] MEDS: DIVALPROEX SODIUM 500 MG DR TABLET PO SCH ×2 (08:56→20:22)
[2022-11-25] MEDS: LITHIUM CARBONATE 300 MG CAPSULE PO SCH ×2 (08:56→20:22)
[2022-11-25] MEDS: LevETIRAcetam 250 MG TABLET PO SCH ×2 (08:57→17:46)
[2022-11-25] MEDS: RisperiDONE 3 MG TABLET PO SCH ×2 (08:57→20:22)
[2022-11-25] MEDS: ROPINIRole HCL 0.25 MG TABLET PO SCH (20:22)
[2022-11-26 06:09] VITALS: BP 103/72
[2022-11-26 08:21] VITALS: BP 118/73
[2022-11-26] MEDS: LevETIRAcetam 250 MG TABLET PO SCH ×2 (08:28→16:14)
[2022-11-26] MEDS: GABAPENTIN 300 MG CAPSULE PO SCH ×2 (08:28→16:14)
[2022-11-26] MEDS: RisperiDONE 3 MG TABLET PO SCH ×2 (08:28→20:05)
[2022-11-26] MEDS: LITHIUM CARBONATE 300 MG CAPSULE PO SCH ×2 (08:28→20:05)
[2022-11-26] MEDS: DIVALPROEX SODIUM 500 MG DR TABLET PO SCH ×2 (08:28→20:05)
[2022-11-26 20:00] VITALS: BP 116/67
[2022-11-26] MEDS: ROPINIRole HCL 0.25 MG TABLET PO SCH (20:05)
[2022-11-27 08:32] VITALS: BP 108/64
[2022-11-27] MEDS: LevETIRAcetam 250 MG TABLET PO SCH ×2 (09:38→16:44)
[2022-11-27] MEDS: DIVALPROEX SODIUM 500 MG DR TABLET PO SCH ×2 (09:38→20:17)
[2022-11-27] MEDS: GABAPENTIN 300 MG CAPSULE PO SCH ×2 (09:38→16:44)
[2022-11-27] MEDS: LITHIUM CARBONATE 300 MG CAPSULE PO SCH ×2 (09:38→20:17)
[2022-11-27] MEDS: RisperiDONE 3 MG TABLET PO SCH ×2 (09:38→20:21)
[2022-11-27] MEDS: LORazepam 2 MG TABLET PO PRN (10:41)
[2022-11-27 20:12] VITALS: BP 114/71
[2022-11-27] MEDS: ROPINIRole HCL 0.25 MG TABLET PO SCH (20:17)
[2022-11-28] MEDS: RisperiDONE 3 MG TABLET PO SCH ×2 (08:12→20:13)
[2022-11-28] MEDS: LevETIRAcetam 250 MG TABLET PO SCH ×2 (08:12→16:20)
[2022-11-28] MEDS: DIVALPROEX SODIUM 500 MG DR TABLET PO SCH ×2 (08:12→20:13)
[2022-11-28] MEDS: GABAPENTIN 300 MG CAPSULE PO SCH ×2 (08:13→16:20)
[2022-11-28] MEDS: LITHIUM CARBONATE 300 MG CAPSULE PO SCH ×2 (08:13→20:13)
[2022-11-28 08:23] VITALS: BP 124/71
[2022-11-28 10:33] LABS: GLUCOMETER DEV NAME(LOC) POC.BV
[2022-11-28] MEDS: LORazepam 2 MG TABLET PO PRN (14:58)
[2022-11-28 20:00] VITALS: BP 110/65
[2022-11-28] MEDS: ROPINIRole HCL 0.25 MG TABLET PO SCH (20:13)
[2022-11-29 08:23] VITALS: BP 120/71
[2022-11-29] MEDS: LITHIUM CARBONATE 300 MG CAPSULE PO SCH ×2 (10:03→20:26)
[2022-11-29] MEDS: LevETIRAcetam 250 MG TABLET PO SCH ×2 (10:03→16:49)
[2022-11-29] MEDS: GABAPENTIN 300 MG CAPSULE PO SCH ×2 (10:03→16:49)
[2022-11-29] MEDS: RisperiDONE 3 MG TABLET PO SCH ×2 (10:03→20:26)
[2022-11-29] MEDS: DIVALPROEX SODIUM 500 MG DR TABLET PO SCH ×2 (10:03→20:26)
[2022-11-29 20:07] VITALS: BP 124/72
[2022-11-29] MEDS: ROPINIRole HCL 0.25 MG TABLET PO SCH (20:27)
[2022-11-30] MEDS: GABAPENTIN 300 MG CAPSULE PO SCH ×2 (08:01→16:44)
[2022-11-30] MEDS: LITHIUM CARBONATE 300 MG CAPSULE PO SCH ×2 (08:01→20:43)
[2022-11-30] MEDS: LevETIRAcetam 250 MG TABLET PO SCH ×2 (08:01→16:45)
[2022-11-30] MEDS: RisperiDONE 3 MG TABLET PO SCH ×2 (08:01→20:43)
[2022-11-30] MEDS: DIVALPROEX SODIUM 500 MG DR TABLET PO SCH ×2 (08:01→20:43)
[2022-11-30] MEDS: LORazepam 2 MG TABLET PO PRN (08:02)
[2022-11-30 08:31] VITALS: BP 128/59
[2022-11-30 20:23] VITALS: BP 110/69
[2022-11-30] MEDS: ROPINIRole HCL 0.25 MG TABLET PO SCH (20:43)
[2022-12-01 08:44] VITALS: BP 103/63
[2022-12-01] MEDS: DIVALPROEX SODIUM 500 MG DR TABLET PO SCH ×2 (09:23→20:36)
[2022-12-01] MEDS: GABAPENTIN 300 MG CAPSULE PO SCH ×2 (09:23→16:41)
[2022-12-01] MEDS: RisperiDONE 3 MG TABLET PO SCH ×2 (09:23→20:36)
[2022-12-01] MEDS: LITHIUM CARBONATE 300 MG CAPSULE PO SCH ×2 (09:23→20:36)
[2022-12-01] MEDS: LevETIRAcetam 250 MG TABLET PO SCH ×2 (09:52→16:41)
[2022-12-01] MEDS: LORazepam 2 MG TABLET PO PRN (10:08)
[2022-12-01 20:18] VITALS: BP 109/68
[2022-12-01] MEDS: ROPINIRole HCL 0.25 MG TABLET PO SCH (20:36)
[2022-12-02 08:25] VITALS: BP 119/78
[2022-12-02] MEDS: LORazepam 2 MG TABLET PO PRN (09:41)
[2022-12-02] MEDS: DIVALPROEX SODIUM 500 MG DR TABLET PO SCH ×2 (09:41→20:48)
[2022-12-02] MEDS: LevETIRAcetam 250 MG TABLET PO SCH ×2 (09:41→16:26)
[2022-12-02] MEDS: GABAPENTIN 300 MG CAPSULE PO SCH ×2 (09:41→16:26)
[2022-12-02] MEDS: RisperiDONE 3 MG TABLET PO SCH ×2 (09:41→20:48)
[2022-12-02] MEDS: LITHIUM CARBONATE 300 MG CAPSULE PO SCH ×2 (09:41→20:48)
[2022-12-02] MEDS ORDERED: BuPROPion HCL 75 MG TABLET PO SCH (11:00)
[2022-12-02 20:16] VITALS: BP 120/59
[2022-12-02] MEDS: ROPINIRole HCL 0.25 MG TABLET PO SCH (20:48)
[2022-12-03] MEDS: BuPROPion HCL 75 MG TABLET PO SCH (08:01)
[2022-12-03] MEDS: LevETIRAcetam 250 MG TABLET PO SCH ×2 (08:01→16:21)
[2022-12-03] MEDS: DIVALPROEX SODIUM 500 MG DR TABLET PO SCH ×2 (08:01→20:18)
[2022-12-03] MEDS: LITHIUM CARBONATE 300 MG CAPSULE PO SCH ×2 (08:01→20:18)
[2022-12-03] MEDS: GABAPENTIN 300 MG CAPSULE PO SCH ×2 (08:01→16:21)
[2022-12-03] MEDS: RisperiDONE 3 MG TABLET PO SCH ×2 (08:01→20:18)
[2022-12-03 08:22] VITALS: BP 115/68
[2022-12-03] MEDS: ROPINIRole HCL 0.25 MG TABLET PO SCH (20:17)
[2022-12-03 20:19] VITALS: BP 118/66
[2022-12-04 08:25] VITALS: BP 116/68
[2022-12-04] MEDS: GABAPENTIN 300 MG CAPSULE PO SCH ×2 (08:29→16:02)
[2022-12-04] MEDS: DIVALPROEX SODIUM 500 MG DR TABLET PO SCH ×2 (08:29→20:25)
[2022-12-04] MEDS: LITHIUM CARBONATE 300 MG CAPSULE PO SCH ×2 (08:29→20:25)
[2022-12-04] MEDS: LevETIRAcetam 250 MG TABLET PO SCH ×2 (08:29→16:02)
[2022-12-04] MEDS: RisperiDONE 3 MG TABLET PO SCH ×2 (08:29→20:25)
[2022-12-04] MEDS: BuPROPion HCL 75 MG TABLET PO SCH (08:30)
[2022-12-04] MEDS: LORazepam 2 MG TABLET PO PRN (12:42)
[2022-12-04 16:16] VITALS: BP 115/70
[2022-12-04] MEDS: ROPINIRole HCL 0.25 MG TABLET PO SCH (20:25)
[2022-12-04 20:55] VITALS: BP 103/60
[2022-12-04] MEDS ORDERED: LITH300C3 PO (22:19)
[2022-12-04] MEDS ORDERED: BUPR-344 PO (22:19)
[2022-12-04] MEDS ORDERED: DIVA-112 PO (22:19)
[2022-12-04] MEDS ORDERED: RISP3TAB63 PO (22:19)
[2022-12-05] MEDS: DIVALPROEX SODIUM 500 MG DR TABLET PO SCH (07:59)
[2022-12-05] MEDS: BuPROPion HCL 75 MG TABLET PO SCH (07:59)
[2022-12-05] MEDS: GABAPENTIN 300 MG CAPSULE PO SCH (07:59)
[2022-12-05] MEDS: LevETIRAcetam 250 MG TABLET PO SCH (08:00)
[2022-12-05] MEDS: LITHIUM CARBONATE 300 MG CAPSULE PO SCH (08:00)
[2022-12-05] MEDS: RisperiDONE 3 MG TABLET PO SCH (08:00)
[2022-12-05 08:42] LABS: GLUCOMETER DEV NAME(LOC) POC.BV
== END 2022-12-05 09:17 | disposition home or self-care (01) | DRG 750 ==
LOC: B3A 19:51 → B2S 11-26 17:22
PROVIDERS: ADMIT Psychiatry & Neurology Psychiatry; ATTEND Psychiatry & Neurology Psychiatry
DX: F25.9 Schizoaffective disorder, unspecified (principal); G40.909 Epilepsy, unspecified, not intractable, without status epilepticus; E03.9 Hypothyroidism, unspecified; G43.909 Migraine, unspecified, not intractable, without status migrainosus; M41.9 Scoliosis, unspecified; Z20.822 Contact with and (suspected) exposure to COVID-19; Z72.0 Tobacco use; Z71.6 Tobacco abuse counseling; Z28.21 Immunization not carried out because of patient refusal
CPT/HCPCS: 80053; 80061; 80164; 80178; 83036; 84439; 84443; 84702; 85025

== ENCOUNTER 2023-02-11 22:12 | Emergency (ER) | payer MEDICAID ==
[~2023-02-11] VITALS: Ht 170.2 cm; Wt 73.0 kg
[~2023-02-11 22:12] MED LIST changes: -BENZ1TAB96 PO; +BUPR-344 PO; +DIVA-112 PO; +LITH300C3 PO; -OLAN7.5T22 PO; +RISP3TAB63 PO; -SERT-440 PO
[2023-02-12] MEDS ORDERED: LORazepam 2 MG/ML VIAL IVP ONE (00:15)
[2023-02-12] MEDS ORDERED: LevETIRAcetam 1,000 MG in DEXTROSE 5%-WATER 100 ML IV ONE (00:15)
[2023-02-12 00:26] LABS: AMPHET/METH SCREEN,URINE POSITIVE (NEGATIVE); BARBITURATE SCREEN, URINE NEGATIVE (NEGATIVE); BENZODIAZEPINES SCREEN,URINE NEGATIVE (NEGATIVE); CANNABINOID SCREEN,URINE NEGATIVE (NEGATIVE); COCAINE SCREEN,URINE NEGATIVE (NEGATIVE); METHADONE SCREEN, URINE NEGATIVE (NEGATIVE); OPIATE SCREEN,URINE NEGATIVE (NEGATIVE); PHENCYCLIDINE SCREEN,URINE NEGATIVE (NEGATIVE)
[2023-02-12 00:31] LABS: BASOPHILS % (AUTO) 0.3 % (0.0-2.0); HEMATOCRIT 39.9 % (36-46); HEMOGLOBIN 13.6 g/dL (12.0-16.0); LYMPHOCYTES # (AUTO) 2.2 K/uL (1.0-4.8); LYMPHOCYTES % (AUTO) 19.4 % (22.0-44.0); MEAN CORPUSCULAR HEMOGLOBIN 31.9 pg (26.0-34.0); MEAN CORPUSCULAR HGB CONC 34.1 G/dL (31.0-37.0); MEAN CORPUSCULAR VOLUME 94 fL (80-100); NEUTROPHILS # (AUTO) 7.8 K/uL (1.8-7.7); NEUTROPHILS % (AUTO) 70.3 % (40.0-70.0); PLATELET COUNT (AUTO) 317 K/uL (150-450); RED BLOOD CELL COUNT(AUTO) 4.27 MIL/uL (4.00-5.20)
[2023-02-12 00:38] LABS: ANION GAP 12 mmol/L (8-16); CALCIUM, TOTAL 9.4 mg/dL (8.8-10.5); CARBON DIOXIDE 26 mmol/L (22-29); CHLORIDE 102 mmol/L (98-107); CREATININE 0.89 mg/dL (0.60-1.30); GLOMERULAR FILTR. RATE CALC > 60 mL/min (>60); GLUCOSE,RANDOM 108 mg/dL (70-110); POTASSIUM 3.2 mmol/L (3.5-5.1); SODIUM SERUM 140 mmol/L (136-145); UREA NITROGEN, BLOOD 8 mg/dL (7-18)
[2023-02-12 00:45] LABS: ALANINE AMINOTRANSFERASE 59 U/L (12-78); ALBUMIN 4.5 g/dL (3.4-5.0); ALKALINE PHOSPHATASE 70 U/L (46-116); ASPARTATE AMINOTRANSFERASE 54 U/L (15-37); BILIRUBIN,TOTAL 0.5 mg/dL (0.1-1.0); TOTAL PROTEIN, SERUM 8.1 g/dL (6.4-8.2)
[2023-02-12] MEDS ORDERED: DIVA500T53 PO (02:32)
[2023-02-12] MEDS ORDERED: RISP3TAB35 PO (02:32)
[2023-02-12] MEDS ORDERED: LEVE250T4 PO (02:32)
[2023-02-12 05:00] VITALS: BP 129/84
== END 2023-02-12 06:43 | disposition home or self-care (01) ==
LOC: EMS 22:13
DX: F15.10 Other stimulant abuse, uncomplicated (principal); F31.9 Bipolar disorder, unspecified; E87.6 Hypokalemia; F20.9 Schizophrenia, unspecified; M41.9 Scoliosis, unspecified
CPT/HCPCS: 99284; 80053; 84703; 85025; 36415; 96365; 96375; 80307 ×2; G0480; J0712; J2060; J7060

== ENCOUNTER 2023-03-03 14:06 | Emergency (ER) | payer MEDICAID ==
[~2023-03-03] VITALS: Ht 167.6 cm; Wt 68.2 kg
[~2023-03-03 14:06] MED LIST changes: -DIVA-112 PO; +DIVA500T53 PO; +RISP3TAB35 PO; -RISP3TAB63 PO
[2023-03-03 14:08] VITALS: BP 124/64
[2023-03-03 15:35] LABS: BASOPHILS % (AUTO) 0.3 % (0.0-2.0); EOSINOPHILS % (AUTO) 2.3 % (1.0-6.0); LYMPHOCYTES # (AUTO) 1.7 K/uL (1.0-4.8); LYMPHOCYTES % (AUTO) 21.9 % (22.0-44.0); MEAN CORPUSCULAR HEMOGLOBIN 30.8 pg (26.0-34.0); MEAN CORPUSCULAR HGB CONC 32.6 G/dL (31.0-37.0); MEAN CORPUSCULAR VOLUME 94 fL (80-100); MONOCYTES # (AUTO) 0.7 K/uL (0.1-1.0); MONOCYTES % (AUTO) 8.7 % (2.0-9.0); NEUTROPHILS # (AUTO) 5.3 K/uL (1.8-7.7); NEUTROPHILS % (AUTO) 66.8 % (40.0-70.0); PLATELET COUNT (AUTO) 280 K/uL (150-450); RED BLOOD CELL COUNT(AUTO) 4.55 MIL/uL (4.00-5.20); RED CELL DISTRIBUTION WIDTH 12.8 % (11.5-14.5)
[2023-03-03 15:38] LABS: ANION GAP 7 mmol/L (8-16); CALCIUM, TOTAL 8.7 mg/dL (8.8-10.5); CARBON DIOXIDE 28 mmol/L (22-29); CHLORIDE 106 mmol/L (98-107); CREATININE 0.78 mg/dL (0.60-1.30); GLOMERULAR FILTR. RATE CALC > 60 mL/min (>60); GLUCOSE,RANDOM 106 mg/dL (70-110); POTASSIUM 3.9 mmol/L (3.5-5.1); SODIUM SERUM 141 mmol/L (136-145); UREA NITROGEN, BLOOD 6 mg/dL (7-18)
[2023-03-03 15:44] LABS: ALANINE AMINOTRANSFERASE 30 U/L (12-78); ALBUMIN 3.8 g/dL (3.4-5.0); ALKALINE PHOSPHATASE 70 U/L (46-116); ASPARTATE AMINOTRANSFERASE 17 U/L (15-37); BILIRUBIN,TOTAL 0.2 mg/dL (0.1-1.0); TOTAL PROTEIN, SERUM 7.4 g/dL (6.4-8.2)
== END 2023-03-03 16:18 | disposition home or self-care (01) ==
LOC: EMS 14:08
DX: F25.0 Schizoaffective disorder, bipolar type (principal); F15.90 Other stimulant use, unspecified, uncomplicated; Z88.8 Allergy status to other drugs, medicaments and biological substances
CPT/HCPCS: 99284; 80053; 84703; 85025; 36415; G0480

== ENCOUNTER 2023-10-24 20:40 | Inpatient (IN) | payer MEDICAID ==
[~2023-10-24] VITALS: Ht 170.2 cm; Wt 64.9 kg
[2023-10-24] MEDS ORDERED: ZOLPIDEM TARTRATE 10 MG TABLET PO PRN (21:30)
[2023-10-24] MEDS ORDERED: PROMETHAZINE HCL 25 MG TABLET PO PRN (21:30)
[2023-10-24] MEDS ORDERED: OLANZapine 5 MG RAPDIS TABLET PO PRN (21:30)
[2023-10-24] MEDS ORDERED: ACETAMINOPHEN 325 MG TABLET PO PRN (21:30)
[2023-10-24] MEDS ORDERED: MAGNESIUM HYDROXIDE SUSPENSION 30 ML UDCUP PO PRN (21:30)
[2023-10-24] MEDS ORDERED: TUBERCULIN, PURIFIED PROTEIN DERIVATIVE 5 TU/0.1 ML SYRINGE ID ONE (21:30)
[2023-10-24] MEDS ORDERED: MAG HYDROX/ALUMINUM HYD/SIMETH ES 30 ML SUSPENSION UDCUP PO PRN (21:30)
[2023-10-24] MEDS ORDERED: LOPERAMIDE HCL 2 MG CAPSULE PO PRN (21:30)
[2023-10-24] MEDS ORDERED: HydrOXYzine PAMOATE 50 MG CAPSULE PO PRN (21:30)
[2023-10-24] MEDS ORDERED: GuaiFENesin/D-METHORPHAN [SUGAR-FREE] 200-20MG/10 ML SYRUP UDCUP PO PRN (21:30)
[2023-10-24 23:56] VITALS: BP 99/49; PULSE 68; RESP 17; TEMP 97.8; O2SAT 97
[2023-10-25 08:04] LABS: BASOPHILS % (AUTO) 0.6 % (0.0-2.0); EOSINOPHILS % (AUTO) 1.9 % (1.0-6.0); HEMATOCRIT 36.7 % (36-46); HEMOGLOBIN 12.6 g/dL (12.0-16.0); LYMPHOCYTES # (AUTO) 1.6 K/uL (1.0-4.8); LYMPHOCYTES % (AUTO) 25.7 % (22.0-44.0); MEAN CORPUSCULAR HEMOGLOBIN 31.8 pg (26.0-34.0); MEAN CORPUSCULAR HGB CONC 34.3 G/dL (31.0-37.0); MEAN CORPUSCULAR VOLUME 93 fL (80-100); MONOCYTES # (AUTO) 0.6 K/uL (0.1-1.0); MONOCYTES % (AUTO) 9.9 % (2.0-9.0); NEUTROPHILS # (AUTO) 3.8 K/uL (1.8-7.7); NEUTROPHILS % (AUTO) 61.9 % (40.0-70.0); PLATELET COUNT (AUTO) 215 K/uL (150-450); RED BLOOD CELL COUNT(AUTO) 3.96 MIL/uL (4.00-5.20); RED CELL DISTRIBUTION WIDTH 12.4 % (11.5-14.5); WHITE BLOOD COUNT (AUTO) 6.2 K/uL (4.5-11.0)
[2023-10-25 08:17] LABS: LITHIUM < 0.20 mmol/L (0.60-1.20)
[2023-10-25 08:19] LABS: HEMOGLOBIN A1C 5.1 % (3.8-5.6)
[2023-10-25 08:25] LABS: ALANINE AMINOTRANSFERASE 17 U/L (12-78); ALBUMIN 3.5 g/dL (3.4-5.0); ALKALINE PHOSPHATASE 66 U/L (46-116); ANION GAP 5 mmol/L (8-16); ASPARTATE AMINOTRANSFERASE 19 U/L (15-37); BILIRUBIN,TOTAL 0.3 mg/dL (0.1-1.0); CALCIUM, TOTAL 8.6 mg/dL (8.8-10.5); CARBON DIOXIDE 28 mmol/L (22-29); CHLORIDE 106 mmol/L (98-107); CHOL/HDL RATIO 2.6 (3.9-5.7); CHOLESTEROL 145 mg/dL (131-200); FREE T4 (FREE THYROXINE) 1.21 ng/dL (0.76-1.46); GLOMERULAR FILTR. RATE CALC > 60 mL/min (>60); GLUCOSE,RANDOM 93 mg/dL (70-110); HDL CHOLESTEROL 56 mg/dL (40-60); LDL CHOL (CALC.) 85 mg/dL (0-130); POTASSIUM 3.9 mmol/L (3.5-5.1); SODIUM SERUM 139 mmol/L (136-145); THYROID STIMULATING HORMONE 2.39 uIU/mL (0.36-3.74); TOTAL PROTEIN, SERUM 6.6 g/dL (6.4-8.2); TRIGLYCERIDES 22 mg/dL (15-150); UREA NITROGEN, BLOOD 13 mg/dL (7-18); VALPROIC ACID 4 mcg/mL (50-100)
[2023-10-25] MEDS: MULTIVITAMINS WITH MINERALS, THERAPEUTIC TABLET PO SCH (08:59)
[2023-10-25] MEDS: LORazepam 2 MG TABLET PO PRN (08:59)
[2023-10-25] MEDS: NALTREXONE HCL 50 MG TABLET PO SCH (08:59)
[2023-10-25] MEDS: FOLIC ACID 1 MG TABLET PO SCH (08:59)
[2023-10-25] MEDS: GABAPENTIN 300 MG CAPSULE PO SCH ×3 (08:59→16:09)
[2023-10-25] MEDS: THIAMINE 100 MG TABLET PO SCH ×2 (08:59→16:08)
[2023-10-25] MEDS: OMEGA-3/DHA/EPA/FISH OIL 1,000 MG CAPSULE PO SCH (08:59)
[2023-10-25] MEDS ORDERED: PALIPERIDONE PALMITATE 234 MG/1.5 ML SYRINGE IM ONE (09:00)
[2023-10-25] MEDS: LITHIUM CARBONATE 300 MG TABLET PO SCH ×2 (09:00→16:08)
[2023-10-25] MEDS: LevETIRAcetam 250 MG TABLET PO SCH ×2 (09:03→16:07)
[2023-10-25 09:27] VITALS: BP 106/60; PULSE 74; RESP 17; TEMP 97.7; O2SAT 96
[2023-10-25] MEDS: DIVALPROEX SODIUM 500 MG ER TABLET PO SCH (20:16)
[2023-10-25] MEDS: MELATONIN 5 MG TABLET PO SCH (20:17)
[2023-10-25] MEDS: OLANZapine 5 MG RAPDIS TABLET PO SCH (20:23)
[2023-10-25] MEDS: ROPINIRole HCL 1 MG TABLET PO SCH (20:23)
[2023-10-25 21:12] VITALS: BP 93/58; PULSE 84; RESP 17; TEMP 98.2; O2SAT 96
[2023-10-26] MEDS: FOLIC ACID 1 MG TABLET PO SCH (08:20)
[2023-10-26] MEDS: NALTREXONE HCL 50 MG TABLET PO SCH (08:20)
[2023-10-26] MEDS: LITHIUM CARBONATE 300 MG TABLET PO SCH ×2 (08:21→16:12)
[2023-10-26] MEDS: THIAMINE 100 MG TABLET PO SCH ×2 (08:21→16:12)
[2023-10-26] MEDS: MULTIVITAMINS WITH MINERALS, THERAPEUTIC TABLET PO SCH (08:21)
[2023-10-26] MEDS: GABAPENTIN 300 MG CAPSULE PO SCH ×3 (08:21→16:12)
[2023-10-26] MEDS: OMEGA-3/DHA/EPA/FISH OIL 1,000 MG CAPSULE PO SCH (08:21)
[2023-10-26] MEDS: LORazepam 2 MG TABLET PO PRN (08:21)
[2023-10-26 08:26] VITALS: RESP 18
[2023-10-26] MEDS: LevETIRAcetam 250 MG TABLET PO SCH ×2 (08:50→16:12)
[2023-10-26] MEDS ORDERED: OLAN5TAB94 PO ×2 (13:43→15:04)
[2023-10-26] MEDS ORDERED: NALT50TA33 PO ×2 (13:43→15:04)
[2023-10-26] MEDS ORDERED: ROPI1TAB46 PO ×2 (13:43→15:04)
[2023-10-26] MEDS ORDERED: GABA-1181 PO ×2 (13:43→15:04)
[2023-10-26] MEDS ORDERED: MELA5TAB40 PO ×2 (13:43→15:04)
[2023-10-26] MEDS ORDERED: LEVE250T PO ×2 (13:43→15:04)
[2023-10-26] MEDS ORDERED: LITH300T PO ×2 (13:43→15:04)
[2023-10-26] MEDS ORDERED: DIVA500T69 PO ×2 (13:43→15:04)
[2023-10-26] MEDS ORDERED: OMEG-135 PO ×2 (13:43→15:04)
[2023-10-26] MEDS: DIVALPROEX SODIUM 500 MG ER TABLET PO SCH (20:53)
[2023-10-26] MEDS: MELATONIN 5 MG TABLET PO SCH (20:53)
[2023-10-26] MEDS: OLANZapine 5 MG RAPDIS TABLET PO SCH (20:54)
[2023-10-26] MEDS: ROPINIRole HCL 1 MG TABLET PO SCH (20:54)
[2023-10-26 22:29] VITALS: BP 96/67; PULSE 86; RESP 18; TEMP 98.5
[2023-10-27 08:17] VITALS: RESP 18
[2023-10-27] MEDS: NALTREXONE HCL 50 MG TABLET PO SCH (08:28)
[2023-10-27] MEDS: THIAMINE 100 MG TABLET PO SCH (08:28)
[2023-10-27] MEDS: LevETIRAcetam 250 MG TABLET PO SCH (08:28)
[2023-10-27] MEDS: GABAPENTIN 300 MG CAPSULE PO SCH (08:29)
[2023-10-27] MEDS: MULTIVITAMINS WITH MINERALS, THERAPEUTIC TABLET PO SCH (08:29)
[2023-10-27] MEDS: FOLIC ACID 1 MG TABLET PO SCH (08:29)
[2023-10-27] MEDS: LITHIUM CARBONATE 300 MG TABLET PO SCH (08:29)
[2023-10-27] MEDS: OMEGA-3/DHA/EPA/FISH OIL 1,000 MG CAPSULE PO SCH (08:29)
[2023-10-29] MEDS ORDERED: PALIPERIDONE PALMITATE 156 MG/ML SYRINGE IM ONE (09:00)
== END 2023-10-27 12:03 | disposition home or self-care (01) | DRG 750 ==
LOC: B3A 21:17
PROVIDERS: ADMIT Psychiatry & Neurology Psychiatry; ATTEND Psychiatry & Neurology Psychiatry
PROC: GZHZZZZ Group Psychotherapy (ICD-10-PCS; principal; 2023-10-24)
DX: F20.9 Schizophrenia, unspecified (principal); R45.851 Suicidal ideations; J44.9 Chronic obstructive pulmonary disease, unspecified; F17.200 Nicotine dependence, unspecified, uncomplicated; G43.909 Migraine, unspecified, not intractable, without status migrainosus; Z88.5 Allergy status to narcotic agent; Z79.899 Other long term (current) drug therapy; Z88.8 Allergy status to other drugs, medicaments and biological substances
CPT/HCPCS: 80053; 80061; 80164; 80178; 83036; 84439; 84443; 85025; 86592; G0482; Q9967

== ENCOUNTER 2025-09-27 09:13 | Emergency (ER) | payer MEDICAID, OTHER ==
[~2025-09-27] VITALS: Ht 170.2 cm; Wt 74.5 kg
[2025-09-27 09:13] VITALS: BP 122/65; PULSE 94; RESP 18; TEMP 98; O2SAT 99
[~2025-09-27 09:13] MED LIST changes: -BUPR-344 PO; -DIVA500T53 PO; +DIVA500T69 PO; +LEVE250T PO; -LEVE250T4 PO; -LITH300C3 PO; +LITH300T PO; +MELA5TAB40 PO; +NALT50TA33 PO; +OLAN5TAB94 PO; +OMEG-135 PO; -RISP3TAB35 PO; -ROPI0.2535 PO; +ROPI1TAB46 PO
[2025-09-27] MEDS ORDERED: LEVE-71 PO (10:08)
== END 2025-09-27 10:33 | disposition home or self-care (01) ==
LOC: EMS 09:14
DX: G40.909 Epilepsy, unspecified, not intractable, without status epilepticus (principal); F20.9 Schizophrenia, unspecified; F31.9 Bipolar disorder, unspecified; F15.90 Other stimulant use, unspecified, uncomplicated; Z88.5 Allergy status to narcotic agent; Z79.899 Other long term (current) drug therapy
CPT/HCPCS: 99283